=== PATIENT | female | born 1935 | race Caucasian/White ===

== ENCOUNTER → 2017-08-12 | Outpatient (CLI) | payer MEDICARE, BC ==
--- NOTE | 2017-08-12 11:31 | US ---
EXAMINATION TYPE: US kidneys/renal and bladder DATE OF EXAM: 08/12/2017 COMPARISON: NONE CLINICAL HISTORY: 81-year-old female N18.3 Chronic Kidney Disease,E11.9 Diabetes Type 2. TECHNIQUE: Multiple sonographic images of the kidneys and bladder are obtained. FINDINGS: EXAM MEASUREMENTS: Right Kidney: 8.3 x 4.0 x 5.4 cm Left Kidney: 9.2 x 4.3 x 5.1 cm [employer] notes: Technically difficult exam due to body habitus and bowel gas. Right Kidney: upper pole lesion measures 3.1 x 2.7 x 2.9cm. This is primarily cystic but appears to h ave some mural based soft tissue thickening. No hydronephrosis. Left Kidney: large lateral cyst measures 8.4 x 4.8 x 7.1 cm. Bladder: wnl Bilateral Jets seen: only right jet seen IMPRESSION: 1. No hydronephrosis. 2. A 3.1 cm cystic lesion in the upper pole of the right kidney seems to have a thickened mural based rind of tissue. Recommend Contrast-enhanced renal mass protocol CT or MRI to further evaluate. 3. Very large 8.4 cm benign left renal cyst.
== END | disposition home or self-care (01) ==
LOC: RADUSWWP 08:15
PROVIDERS: ATTEND Family Medicine
DX: N28.1 Cyst of kidney, acquired (principal); N18.3 Chronic kidney disease, stage 3 (moderate); E11.9 Type 2 diabetes mellitus without complications
CPT/HCPCS: 76770

== ENCOUNTER → 2017-10-22 | Outpatient (CLI) | payer MEDICARE, BC ==
[2017-10-22 08:37] LABS: HCT 39.3 % (34.0-46.0); Hypochromasia Slight; MCH 25.8 pg (25.0-35.0); MCHC 30.4 g/dL (31.0-37.0); MCV 84.9 fL (80.0-100.0); Mean Platelet Volume 9.2; Platelet Count 162 k/uL (150-450); RBC 4.63 m/uL (3.80-5.40); RDW 14.1 % (11.5-15.5); WBC 5.3 k/uL (3.8-10.6)
[2017-10-22 08:41] LABS: Appearance,Urine Clear (Clear); Bilirubin,Urine Negative (Negative); Blood,Urine Negative (Negative); Color,Urine Yellow; Glucose,Urine (UA) Negative (Negative); Ketones,Urine Negative (Negative); Leukocyte Esterase,Urine Large (Negative); Mucus,Urine Rare /hpf; Nitrite,Urine Negative (Negative); PH, Urine 5.5 (5.0-8.0); Protein,Urine Negative (Negative); RBC,Urine 1 /hpf (0-5); Specific Gravity,Urine 1.012 (1.001-1.035); Squamous Epithelial Cell,Urine <1 /hpf (0-4); Urobilinogen,Urine <2.0 mg/dL (<2.0); WBC,Urine 12 /hpf (0-5)
[2017-10-22 08:59] LABS: Albumin 3.5 g/dL (3.5-5.0); Calcium 9.7 mg/dL (8.4-10.2); Phosphorus 3.7 mg/dL (2.5-4.5); Potassium 4.8 mmol/L (3.5-5.1); Total Bilirubin 0.5 mg/dL (0.2-1.3); Uric Acid 6.8 mg/dL (3.7-7.4)
[2017-10-22 16:14] LABS: Parathyroid Hormone Intact 66.7 pg/mL (14.0-72.0)
[2017-10-22 16:24] LABS: Iron Saturation 15.38 (12.00-45.00)
== END | disposition home or self-care (01) ==
LOC: LABWHC1 08:13
PROVIDERS: ATTEND Internal Medicine
DX: E21.3 Hyperparathyroidism, unspecified (principal); N39.0 Urinary tract infection, site not specified; M10.9 Gout, unspecified; R80.9 Proteinuria, unspecified; D63.1 Anemia in chronic kidney disease; N18.9 Chronic kidney disease, unspecified
CPT/HCPCS: 36415; 80053; 81001; 82043; 82570; 82728; 83540; 83550; 83735; 83970; 84100; 84550; 85027

== ENCOUNTER 2017-11-10 20:15 | Emergency (ER) | payer MEDICARE, BC ==
[2017-11-10 20:25] LABS: Glucose,Whole Blood 120 mg/dL (75-99)
[2017-11-10 22:11] LABS: Basophils % (A) 0 %; Eosinophils # (A) 0.1 k/uL (0-0.7); Eosinophils % (A) 2 %; HCT 39.7 % (34.0-46.0); HGB 12.4 gm/dL (11.4-16.0); Hypochromasia Slight; Lymphocytes # (A) 1.7 k/uL (1.0-4.8); Lymphocytes % (A) 26 %; MCH 26.7 pg (25.0-35.0); MCHC 31.2 g/dL (31.0-37.0); MCV 85.5 fL (80.0-100.0); Mean Platelet Volume 8.3; Monocytes # (A) 0.7 k/uL (0-1.0); Monocytes % (A) 10 %; Neutrophils # (A) 3.9 k/uL (1.3-7.7); Neutrophils % (A) 59 %; Platelet Count 171 k/uL (150-450); RBC 4.65 m/uL (3.80-5.40); RDW 14.6 % (11.5-15.5); WBC 6.7 k/uL (3.8-10.6)
--- NOTE | 2017-11-10 22:13 | ED ---
Dizziness HPI - General Chief Complaint: Dizziness Stated Complaint: Nausea Time Seen by Provider: 11/10/17 21:35 Source: patient Mode of arrival: EMS Limitations: no limitations - History of Present Illness Initial Comments: This patient is an 82-year-old woman who presents to be evaluated for what she was describing as dizziness, but with further prompting seems to be more a lightheaded sensation. She states that it came on tonight after 8 PM, while she was sitting and doing some crocheting. Patient states that this prompted her to check her blood pressure at home and it was less than 80. When she discussed this with family members they called an ambulance and had her brought here. It is reported that EMS found blood pressure in the 140s. Patient was questioning whether the battery may have been low on her machine. The patient states that she is feeling better now. She has not had any symptoms that she feels was suggest infection. She denies any other associated symptoms. She denies palpitations, diaphoresis, dyspnea, chest pain, nausea or vomiting. MD Complaint: dizziness, lightheadedness Onset/Timin -: hour(s) Timing: sudden onset Description: lightheadedness History of Same: No History of Trauma: No Severity: moderate Improves With: nothing Worsens With: nothing Associated Symptoms: denies other symptoms - Related Data Previous Rx's Medication Instructions Recorded Sulfamethox-Tmp 800-160Mg [Bactrim 1 each PO Q12HR #6 tab 11/10/17 Ds] Allergies Allergy/AdvReac Type Severity Reaction Status Date / Time No Known Allergies Allergy Verified 11/10/17 22:10 Review of Systems ROS Statement: Those systems with pertinent positive or pertinent negative responses have been documented in the HPI. ROS Other: All systems not noted in ROS Statement are negative. Constitutional: Denies: fever, chills, weakness Eyes: Denies: vision change ENT: Denies: throat pain, congestion Respiratory: Denies: cough, dyspnea Cardiovascular: Denies: chest pain, palpitations, dyspnea on exertion, orthopnea , edema Gastrointestinal: Denies: abdominal pain, nausea, vomiting, diarrhea, melena, hematochezia Genitourinary: Denies: dysuria, hematuria Musculoskeletal: Denies: back pain Skin: Denies: rash Neurological: Denies: headache, weakness, numbness Past Medical History Past Medical History: Heart Failure, Hypertension Additional Past Medical History / Comment(s): Heart catherization09/11/2000, Ovarian tumor removal. Thyroid disorder. History of Any Multi-Drug Resistant Organisms: None Reported Past Surgical History: Heart Catheterization, Heart Catheterization With Stent Additional Past Surgical History / Comment(s): left shoulder surgery. Past Psychological History: No Psychological Hx Reported Past Alcohol Use History: None Reported Past Drug Use History: None Reported General Exam Limitations: no limitations General appearance: alert, in no apparent distress Head exam: Present: atraumatic, normocephalic Eye exam: Present: normal appearance. Absent: scleral icterus, conjunctival injection ENT exam: Present: normal oropharynx Neck exam: Present: normal inspection Respiratory exam: Present: normal lung sounds bilaterally. Absent: respiratory distress, wheezes, rales, rhonchi, stridor Cardiovascular Exam: Present: regular rate, normal rhythm, normal heart sounds. Absent: systolic murmur, diastolic murmur, rubs, gallop GI/Abdominal exam: Present: soft. Absent: distended, tenderness, guarding, rebound, rigid, mass Extremities exam: Present: normal inspection, normal capillary refill. Absent: pedal edema, calf tenderness Back exam: Present: normal inspection. Absent: CVA tenderness (R), CVA tenderness (L) Neurological exam: Present: alert, normal gait Skin exam: Present: warm, dry, intact, normal color. Absent: rash Course Vital Signs 11/10/17 11/10/17 20:19 21:35 Pulse Rate 85 Pulse Rate [ 83 Right Sitting] Pulse Rate [ 89 Right Standing] Pulse Rate [ 80 Right Supine] Respiratory 16 18 Rate Blood Pressure 152/53 Blood Pressure 141/56 [Right Arm Sitting] Blood Pressure 146/67 [Right Arm Standing] Blood Pressure 138/63 [Right Arm Supine] O2 Sat by Pulse 96 98 Oximetry EKG Findings - EKG Results: EKG: interpreted by ERMD, sinus rhythm (Rate 79 bpm), normal axis - Blocks, [place], Hypertrophy, ST Abn: AV and intraventricular conduction: intraventricular conduction delay Medical Decision Making - Medical Decision Making On reevaluation, the patient's continues to feel well, not having any symptoms here. She would like to go home. I discussed return parameters and also appropriate follow-up and all questions answered. - Lab Data Result diagrams: 11/10/17 21:56 11/10/17 21:56 Lab Results 11/10/17 11/10/17 11/10/17 Range/Units 20:21 21:56 21:56 WBC 6.7 (3.8-10.6) k/uL RBC 4.65 (3.80-5.40) m/uL Hgb 12.4 (11.4-16.0) gm/dL Hct 39.7 (34.0-46.0) % MCV 85.5 (80.0-100.0) fL MCH 26.7 (25.0-35.0) pg MCHC 31.2 (31.0-37.0) g/dL RDW 14.6 (11.5-15.5) % Plt Count 171 (150-450) k/uL Neutrophils % 59 % Lymphocytes % 26 % Monocytes % 10 % Eosinophils % 2 % Basophils % 0 % Neutrophils # 3.9 (1.3-7.7) k/uL Lymphocytes # 1.7 (1.0-4.8) k/uL Monocytes # 0.7 (0-1.0) k/uL Eosinophils # 0.1 (0-0.7) k/uL Basophils # 0.0 (0-0.2) k/uL Hypochromasia Slight Sodium 140 (137-145) mmol/L Potassium 4.3 (3.5-5.1) mmol/L Chloride 106 (98-107) mmol/L Carbon Dioxide 27 (22-30) mmol/L Anion Gap 7 mmol/L BUN 41 H (7-17) mg/dL Creatinine 1.60 H (0.52-1.04) mg/dL Est GFR (CKD-EPI)AfAm 35 (>60 ml/min/1.73 sqM) Est GFR (CKD-EPI)NonAf 30 (>60 ml/min/1.73 sqM) Glucose 125 H (74-99) mg/dL POC Glucose (mg/dL) 120 H (75-99) mg/dL POC Glu Mysql Database Administrator Farhad Calleelle Plasma Lactic Acid Tab (0.7-2.0) mmol/L Calcium 9.5 (8.4-10.2) mg/dL Total Bilirubin 0.4 (0.2-1.3) mg/dL AST 23 (14-36) U/L ALT 25 (9-52) U/L Alkaline Phosphatase 51 (38-126) U/L Total Protein 6.1 L (6.3-8.2) g/dL Albumin 3.4 L (3.5-5.0) g/dL Urine Color Urine Appearance (Clear) Urine pH (5.0-8.0) Ur Specific [place] (1.001-1.035) Urine Protein (Negative) Urine Glucose (UA) (Negative) Urine Ketones (Negative) Urine Blood (Negative) Urine Nitrite (Negative) Urine Bilirubin (Negative) Urine Urobilinogen (<2.0) mg/dL Ur Leukocyte Esterase (Negative) Urine RBC (0-5) /hpf Urine WBC (0-5) /hpf Ur Squamous Epith Cells (0-4) /hpf Hyaline Casts (0-2) /lpf Urine Mucus (None) /hpf 11/10/17 11/10/17 Range/Units 21:56 22:00 WBC (3.8-10.6) k/uL RBC (3.80-5.40) m/uL Hgb (11.4-16.0) gm/dL Hct (34.0-46.0) % MCV (80.0-100.0) fL MCH (25.0-35.0) pg MCHC (31.0-37.0) g/dL RDW (11.5-15.5) % Plt Count (150-450) k/uL Neutrophils % % Lymphocytes % % Monocytes % % Eosinophils % % Basophils % % Neutrophils # (1.3-7.7) k/uL Lymphocytes # (1.0-4.8) k/uL Monocytes # (0-1.0) k/uL Eosinophils # (0-0.7) k/uL Basophils # (0-0.2) k/uL Hypochromasia Sodium (137-145) mmol/L Potassium (3.5-5.1) mmol/L Chloride (98-107) mmol/L Carbon Dioxide (22-30) mmol/L Anion Gap mmol/L BUN (7-17) mg/dL Creatinine (0.52-1.04) mg/dL Est GFR (CKD-EPI)AfAm (>60 ml/min/1.73 sqM) Est GFR (CKD-EPI)NonAf (>60 ml/min/1.73 sqM) Glucose (74-99) mg/dL POC Glucose (mg/dL) (75-99) mg/dL POC Glu Mysql Database Administrator ID Plasma Lactic Acid Tab 1.4 (0.7-2.0) mmol/L Calcium (8.4-10.2) mg/dL Total Bilirubin (0.2-1.3) mg/dL AST (14-36) U/L ALT (9-52) U/L Alkaline Phosphatase (38-126) U/L Total Protein (6.3-8.2) g/dL Albumin (3.5-5.0) g/dL Urine Color Yellow Urine Appearance Cloudy H (Clear) Urine pH 5.0 (5.0-8.0) Ur Specific [place] 1.011 (1.001-1.035) Urine Protein Negative (Negative) Urine Glucose (UA) Negative (Negative) Urine Ketones Negative (Negative) Urine Blood Negative (Negative) Urine Nitrite Negative (Negative) Urine Bilirubin Negative (Negative) Urine Urobilinogen <2.0 (<2.0) mg/dL Ur Leukocyte Esterase Large H (Negative) Urine RBC <1 (0-5) /hpf Urine WBC 12 H (0-5) /hpf Ur Squamous Epith Cells 2 (0-4) /hpf Hyaline Casts 21 H (0-2) /lpf Urine Mucus Rare H (None) /hpf Disposition Clinical Impression: Urinary tract infection Disposition: HOME SELF-CARE Condition: Good Instructions: Urinary Tract Infection in Women (ED), Dizziness (ED) Prescriptions: Sulfamethox-Tmp 800-160Mg [Bactrim Ds] 1 each PO Q12HR #6 tab Is patient prescribed a controlled substance at d/c from ED?: No Referrals: Tila Valladares MD [Primary Care Provider] - 1-2 days
[2017-11-10 22:25] LABS: Appearance,Urine Cloudy (Clear); Bilirubin,Urine Negative (Negative); Blood,Urine Negative (Negative); Color,Urine Yellow; Glucose,Urine (UA) Negative (Negative); Hyaline Casts,Urine 21 /lpf (0-2); Ketones,Urine Negative (Negative); Leukocyte Esterase,Urine Large (Negative); Mucus,Urine Rare /hpf; Nitrite,Urine Negative (Negative); Protein,Urine Negative (Negative); RBC,Urine <1 /hpf (0-5); Specific Gravity,Urine 1.011 (1.001-1.035); Squamous Epithelial Cell,Urine 2 /hpf (0-4); Urobilinogen,Urine <2.0 mg/dL (<2.0); WBC,Urine 12 /hpf (0-5)
[2017-11-10 22:26] LABS: Albumin 3.4 g/dL (3.5-5.0); Calcium 9.5 mg/dL (8.4-10.2); Potassium 4.3 mmol/L (3.5-5.1); Total Bilirubin 0.4 mg/dL (0.2-1.3); Total Protein 6.1 g/dL (6.3-8.2)
[2017-11-10] MEDS ORDERED: SODIUM CHLORIDE 0.9% 500 ML IV STA (22:36)
[2017-11-10] MEDS ORDERED: SULFAMETHOX-TMP 800-160MG 1 EACH TAB PO STA (22:36)
--- NOTE | 2017-11-10 23:13 | XR ---
EXAMINATION TYPE: XR chest 2V DATE OF EXAM: 11/10/2017 COMPARISON: 11/23/2015 HISTORY: Weakness TECHNIQUE: Frontal and lateral views of the chest are obtained. FINDINGS: There is elevated right diaphragm there is linear density at the right lung base. Left aldair g is clear. There is no heart failure. Mediastinum is normal. Bony thorax is intact. IMPRESSION: Chronic elevated right diaphragm with atelectasis at the right lung base. This could rel ate to paralysis. No significant change. No heart failure.
[2017-11-11 00:04] VITALS: BP 131/59; PULSE 72; RESP 16; TEMP 98.5
== END 2017-11-11 00:01 | disposition home or self-care (01) ==
LOC: EC 20:15
DX: N39.0 Urinary tract infection, site not specified (principal); R42 Dizziness and giddiness; I11.0 Hypertensive heart disease with heart failure; I50.9 Heart failure, unspecified; Z95.5 Presence of coronary angioplasty implant and graft
CPT/HCPCS: 36415; 71046; 80053; 81001; 83605; 85025; 87040; 93005; 99285

== ENCOUNTER → 2017-11-22 | Outpatient (CLI) | payer MEDICARE, BC ==
--- NOTE | 2017-11-23 14:52 | MR ---
EXAMINATION TYPE: MR kidney wo con DATE OF EXAM: 11/22/2017 COMPARISON: Ultrasound 08/12/2017 HISTORY: 82-year-old female Chronic kidney disease TECHNIQUE: Multiplanar, multisequence images of the abdomen were obtained without IV contrast for ass essment of the kidneys. FINDINGS: The heart is normal size. No pleural effusion. There is a 2.3 x 3.1 cm mildly T2 hyperintense lesion within segment 3 of the left liver lobe. On axi al series, there is a thin septation along the posterior margin. Assessment limited without IV contra st. No other focal liver lesions seen. Tiny 4 mm smaller calculi layering in the gallbladder. No abnormal gallbladder distention. No biliary ductal dilatation. Maintained flow void of the portal vein. Mild diffuse thickening of the adrenal glands without discrete nodularity. Complex cyst is confirmed in the upper pole of the right kidney. This measures 2.9 x 2.7 x 2.2 cm. On the prior ultrasound, measurements were 3.1 x 2.9 x 2.7 cm. Large simple cyst exophytic from the mid to lower pole left kidney measures 8.8 cm. Tiny 7 mm cortica l cyst in the upper pole of the left kidney. No hydronephrosis. Spleen and nonenhanced pancreas show no gross abnormality. Prominent but nonenlarged portacaval lymph node measuring 1.2 cm. No upper abdominal lymphadenopathy, ascites fluid, or gross bowel abnormality seen. IMPRESSION: 1. A 2.9 cm Bosniak category 2F upper pole right renal cyst. Stable for 3 months. Multiple thin inter nal septations are present. As this is well seen on ultrasound, recommend ultrasound follow-up in 6 a nd 12 months then annual follow-up for 5 years. 2. Indeterminate, mildly T2 hyperintense 3.1 cm lesion segment 3 left liver lobe. Suspect a mildly co mplicated cyst that contains a single thin internal septation. This can also be assessed on the patie nt's follow-up ultrasound. 3. Tiny layering gallstones.
== END | disposition home or self-care (01) ==
LOC: RADMRIMAIN 10:27
PROVIDERS: ATTEND Internal Medicine Nephrology
DX: N28.1 Cyst of kidney, acquired (principal); N18.9 Chronic kidney disease, unspecified
CPT/HCPCS: 74181

== ENCOUNTER → 2018-04-15 | Outpatient (CLI) | payer MEDICARE, BC ==
[2018-04-15 08:22] LABS: HCT 42.5 % (34.0-46.0); HGB 13.8 gm/dL (11.4-16.0); MCH 30.6 pg (25.0-35.0); MCHC 32.5 g/dL (31.0-37.0); MCV 94.2 fL (80.0-100.0); Mean Platelet Volume 8.1; Platelet Count 135 k/uL (150-450); RBC 4.51 m/uL (3.80-5.40); RDW 13.2 % (11.5-15.5); WBC 5.9 k/uL (3.8-10.6)
[2018-04-15 08:26] LABS: Appearance,Urine Clear (Clear); Bilirubin,Urine Negative (Negative); Blood,Urine Negative (Negative); Color,Urine Light Yellow; Glucose,Urine (UA) Negative (Negative); Ketones,Urine Negative (Negative); Leukocyte Esterase,Urine Moderate (Negative); Mucus,Urine Rare /hpf; Nitrite,Urine Negative (Negative); Protein,Urine Negative (Negative); Specific Gravity,Urine 1.009 (1.001-1.035); Squamous Epithelial Cell,Urine <1 /hpf (0-4); Urobilinogen,Urine <2.0 mg/dL (<2.0); WBC,Urine 6 /hpf (0-5)
[2018-04-15 11:10] LABS: Iron Saturation 32.78 (12.00-45.00)
[2018-04-15 11:14] LABS: Albumin 3.7 g/dL (3.80-4.90); Albumin/Globulin Ratio 1.76 (1.20-2.10); Anion Gap 8.3 mmol/L (4.00-12.00); Calcium 9.1 mg/dL (8.7-10.3); Carbon Dioxide 29.7 mmol/L (21.6-31.8); Globulin 2.1 g/dL (1.6-3.3); Magnesium 1.7 mg/dL (1.5-2.4); Phosphorus 2.8 mg/dL (2.4-5.1); Potassium 3.8 mmol/L (3.5-5.5); Total Bilirubin 0.8 mg/dL (0.3-1.2); Total Protein 5.8 g/dL (6.2-8.2); Uric Acid 6.9 mg/dL (2.9-7.7)
[2018-04-15 11:19] LABS: Vitamin D 25 Hydroxy 56.7 ng/mL (30.0-100.0)
[2018-04-15 11:21] LABS: Parathyroid Hormone Intact 49.5 pg/mL (14.0-72.0)
== END ==
LOC: LABWHC1 07:30
PROVIDERS: ATTEND Nurse Practitioner Family
DX: N18.9 Chronic kidney disease, unspecified (principal); E61.1 Iron deficiency; N39.0 Urinary tract infection, site not specified; D63.1 Anemia in chronic kidney disease; E55.9 Vitamin D deficiency, unspecified; M10.9 Gout, unspecified; E21.3 Hyperparathyroidism, unspecified
CPT/HCPCS: 36415; 80053; 81001; 82043; 82306; 82570; 82728; 83540; 83550; 83735; 83970; 84100; 84550; 85027; 87086

== ENCOUNTER → 2018-08-01 | Outpatient (CLI) | payer MEDICARE, BC ==
--- NOTE | 2018-08-01 07:15 | US ---
EXAMINATION TYPE: US kidneys/renal and bladder DATE OF EXAM: 08/01/2018 COMPARISON: US & MRI CLINICAL HISTORY: N28.1 right renal cyst. F/U renal cyst EXAM MEASUREMENTS: Right Kidney: 7.8 x 3.7 x 4.0 cm Left Kidney: 8.8 x 3.3 x 3.5 cm Right Kidney: Cyst upper pole= 1.9 x 1.8 x 2.1 cm Left Kidney: Cyst lower pole= 8.4 x 5.3 x 8.3 cm Bladder: wnl Bilateral Jets seen: No There is no evidence for hydronephrosis at this point in time. No nephrolithiasis is seen. No solid masses are identified. The urinary bladder is anechoic. Bilateral ureteral jets are seen. IMPRESSION: Stable Renal cystic changes noted.
== END | disposition home or self-care (01) ==
LOC: RADUSWWP 06:47
PROVIDERS: ATTEND Urology
DX: N28.1 Cyst of kidney, acquired (principal); Z88.1 Allergy status to other antibiotic agents; Z88.8 Allergy status to other drugs, medicaments and biological substances
CPT/HCPCS: 76770

== ENCOUNTER 2018-09-11 21:02 | Emergency (ER) | payer MEDICARE, BC ==
[2018-09-11 21:48] LABS: Basophils % (A) 0 %; Eosinophils # (A) 0.1 k/uL (0-0.7); Eosinophils % (A) 2 %; HCT 45.9 % (34.0-46.0); HGB 14.7 gm/dL (11.4-16.0); Lymphocytes % (A) 27 %; MCH 29.3 pg (25.0-35.0); MCV 91.4 fL (80.0-100.0); Mean Platelet Volume 9.3; Monocytes # (A) 0.7 k/uL (0-1.0); Monocytes % (A) 9 %; Neutrophils # (A) 4.5 k/uL (1.3-7.7); Neutrophils % (A) 60 %; Platelet Count 161 k/uL (150-450); RBC 5.02 m/uL (3.80-5.40); RDW 13.7 % (11.5-15.5); WBC 7.5 k/uL (3.8-10.6)
--- NOTE | 2018-09-11 21:50 | ED ---
General Adult HPI - General Chief complaint: Urogenital Stated complaint: UTI Time Seen by Provider: 09/11/18 21:17 Source: EMS Mode of arrival: EMS - History of Present Illness Initial comments: Dictation was produced using [employer] dictation software. please excuse any grammatical, word or spelling errors. Chief Complaint: 82-year-old female multiple comorbid disease presents with dysuria. History of Present Illness: 82-year-old female multiple comorbidities presents today with dysuria. Patient states that 3 days ago she had some burning on u rination. She thought some maybe she is having kidney infection. She decided to drink more water than usual and her symptoms went away. She was relatively asymptomatic the following 2 days. Today she noted that she had painful urination. Patient's history of urinary tract infections. Patient also reports that she had a kidney infection as well. Patient denies any constitutional symptoms. She doesn't have any pain to her suprapubic area. Patient has a history of kidney cyst that has been monitored by nephrology and urology. Patient has a history of chronic kidney disease. The ROS documented in this emergency department record has been reviewed and confirmed by me. Those systems with pertinent positive or negative responses have been documented in the HPI. All other systems are other negative and/or noncontributory. PHYSICAL EXAM: General Impression: Alert and oriented x3, not in acute distress HEENT: Normocephalic atraumatic, extra-ocular movements intact, pupils equal and reactive to light bilaterally, mucous membranes moist. Cardiovascular: Heart regular rate and rhythm, S1&S2 audible, no murmurs, rubs or gallops Chest: Lungs clear to auscultation bilaterally, no rhonchi, no wheeze, no rales Abdomen: Bowel sounds present, abdomen soft, non-tender, non-distended, no organomegaly Musculoskeletal: Pulses present and equal in all extremities, no peripheral edema, no CVA tenderness Motor: no focal deficits noted Neurological: CN II-XII grossly intact, no focal motor or sensory deficits noted Skin: Intact with no visualized rashes Psych: Normal affect and mood ED course: Patient is a 82-year-old female presents chief complaint dysuria. Signs upon arrival are within acceptable limits. Laboratory evaluation obtained. CBC, metabolic panel is unremarkable. U rinalysis consistent with urinary tract infection. No old urine microbiology results are available in the EMR. Patient 1 g of ceftriaxone. Patient given prescription for by mouth antibiotics. Patient clear for discharge. Return parameters discussed. Patient told to come to the emergency department with flank pain, fever or confusion. Patient understandable agreeable. She is advised follow-up with her PCP upon discharge. - Related Data Home Medications Medication Instructions Recorded Confirmed Cholecalciferol [Vitamin D3 (25 5,000 unit PO Q48H 09/11/18 09/11/18 Mcg = 1000 Iu)] Famotidine [Pepcid] 20 mg PO DAILY 09/11/18 09/11/18 Ferrous Sulfate [Feosol] 325 mg PO DAILY 09/11/18 09/11/18 Levothyroxine Sodium [Synthroid] 75 mcg PO DAILY 09/11/18 09/11/18 Metoprolol Tartrate [Lopressor] 25 mg PO HS 09/11/18 09/11/18 Metoprolol Tartrate [Lopressor] 50 mg PO DAILY 09/11/18 09/11/18 Olmesartan/Hydrochlorothiazide 1 tab PO DAILY 09/11/18 09/11/18 [Benicar Hct 20-12.5 mg Tablet] Simvastatin 40 mg PO HS 09/11/18 09/11/18 Previous Rx's Medication Instructions Recorded Cephalexin [Keflex] 500 mg PO Q6HR 7 Days #30 cap 09/11/18 Allergies Allergy/AdvReac Type Severity Reaction Status Date / Time No Known Allergies Allergy Verified 09/11/18 21:30 Review of Systems ROS Statement: Those systems with pertinent positive or pertinent negative responses have been documented in the HPI. ROS Other: All systems not noted in ROS Statement are negative. Past Medical History Past Medical History: Heart Failure, Hypertension Additional Past Medical History / Comment(s): Heart catherization09/11/2000, Ovarian tumor removal. Thyroid disorder. cyst on left kidney, frequent uti, shoulder cyst, cataracts right eye History of Any Multi-Drug Resistant Organisms: None Reported Past Surgical History: Heart Catheterization, Heart Catheterization With Stent, Hernia Repair, Hysterectomy Additional Past Surgical History / Comment(s): left shoulder surgery, peripheral angiography Past Psychological History: No Psychological Hx Reported Smoking Status: Never smoker Past Alcohol Use History: None Reported Past Drug Use History: None Reported Course Vital Signs 09/11/18 09/11/18 21:19 23:28 Temperature 98.4 F 98.3 F Pulse Rate 75 62 Respiratory 18 16 Rate Blood Pressure 131/55 133/64 O2 Sat by Pulse 97 96 Oximetry Medical Decision Making - Lab Data Result diagrams: 09/11/18 21:33 09/11/18 21:33 Lab Results 09/11/18 09/11/18 09/11/18 Range/Units 21:33 21:33 21:33 WBC 7.5 (3.8-10.6) k/uL RBC 5.02 (3.80-5.40) m/uL Hgb 14.7 (11.4-16.0) gm/dL Hct 45.9 (34.0-46.0) % MCV 91.4 (80.0-100.0) fL MCH 29.3 (25.0-35.0) pg MCHC 32.0 (31.0-37.0) g/dL RDW 13.7 (11.5-15.5) % Plt Count 161 (150-450) k/uL Neutrophils % 60 % Lymphocytes % 27 % Monocytes % 9 % Eosinophils % 2 % Basophils % 0 % Neutrophils # 4.5 (1.3-7.7) k/uL Lymphocytes # 2.0 (1.0-4.8) k/uL Monocytes # 0.7 (0-1.0) k/uL Eosinophils # 0.1 (0-0.7) k/uL Basophils # 0.0 (0-0.2) k/uL Sodium 139 (137-145) mmol/L Potassium 5.0 (3.5-5.1) mmol/L Chloride 101 (98-107) mmol/L Carbon Dioxide 29 (22-30) mmol/L Anion Gap 9 mmol/L BUN 32 H (7-17) mg/dL Creatinine 1.56 H (0.52-1.04) mg/dL Est GFR (CKD-EPI)AfAm 36 (>60 ml/min/1.73 sqM) Est GFR (CKD-EPI)NonAf 31 (>60 ml/min/1.73 sqM) Glucose 141 H (74-99) mg/dL Calcium 10.1 (8.4-10.2) mg/dL Urine Color Yellow Urine Appearance Cloudy H (Clear) Urine pH 5.0 (5.0-8.0) Ur Specific [place] 1.016 (1.001-1.035) Urine Protein Trace H (Negative) Urine Glucose (UA) Negative (Negative) Urine Ketones Negative (Negative) Urine Blood Small H (Negative) Urine Nitrite Negative (Negative) Urine Bilirubin Negative (Negative) Urine Urobilinogen 2.0 (<2.0) mg/dL Ur Leukocyte Esterase Large H (Negative) Urine RBC 13 H (0-5) /hpf Urine WBC >182 H (0-5) /hpf Urine WBC Clumps Few H (None) /hpf Ur Squamous Epith Cells 1 (0-4) /hpf Urine Bacteria Rare H (None) /hpf Hyaline Casts 22 H (0-2) /lpf Urine Mucus Rare H (None) /hpf Disposition Clinical Impression: Urinary tract infection Disposition: HOME SELF-CARE Condition: Good Instructions (If sedation given, give patient instructions): Urinary Tract Infection in Women (ED) Prescriptions: Cephalexin [Keflex] 500 mg PO Q6HR 7 Days #30 cap Is patient prescribed a controlled substance at d/c from ED?: No Referrals: Tila Valladares MD [Primary Care Provider] - 1-2 days Time of Disposition: 23:54
[2018-09-11 21:51] LABS: Appearance,Urine Cloudy (Clear); Bacteria,Urine Rare /hpf; Bilirubin,Urine Negative (Negative); Blood,Urine Small (Negative); Color,Urine Yellow; Glucose,Urine (UA) Negative (Negative); Hyaline Casts,Urine 22 /lpf (0-2); Ketones,Urine Negative (Negative); Leukocyte Esterase,Urine Large (Negative); Mucus,Urine Rare /hpf; Nitrite,Urine Negative (Negative); Protein,Urine Trace (Negative); RBC,Urine 13 /hpf (0-5); Specific Gravity,Urine 1.016 (1.001-1.035); Squamous Epithelial Cell,Urine 1 /hpf (0-4); WBC,Urine >182 /hpf (0-5)
[2018-09-11 21:59] LABS: Calcium 10.1 mg/dL (8.4-10.2)
[2018-09-11 23:28] VITALS: BP 133/64; PULSE 62; RESP 16; TEMP 98.3
== END 2018-09-12 00:01 | disposition home or self-care (01) ==
LOC: EC 21:02
DX: N39.0 Urinary tract infection, site not specified (principal); I13.0 Hypertensive heart and chronic kidney disease with heart failure and stage 1 through stage 4 chronic kidney disease, or unspecified chronic kidney disease; N18.9 Chronic kidney disease, unspecified; I50.9 Heart failure, unspecified; E07.9 Disorder of thyroid, unspecified; Z79.890 Hormone replacement therapy; Z79.899 Other long term (current) drug therapy; Z95.5 Presence of coronary angioplasty implant and graft; Z90.710 Acquired absence of both cervix and uterus
CPT/HCPCS: 36415; 80048; 85025; 81001; 87086; 99283; 96365; J0696

== ENCOUNTER 2018-09-23 08:16 | Inpatient (IN) | payer MEDICARE, BC ==
[2018-09-23] MEDS ORDERED: SODIUM CHLORIDE 0.9% 1,000 ML IV STA ×2 (08:55→12:38)
[2018-09-23] MEDS ORDERED: ONDANSETRON 4 MG/2 ML VIAL IVP STA (08:55)
[2018-09-23] MEDS ORDERED: SODIUM CHLORIDE 0.9% 500 ML 500 ML IV STA (08:55)
[2018-09-23] MEDS ORDERED: FAMOTIDINE 20 MG/2 ML VIAL IV STA (08:57)
--- NOTE | 2018-09-23 09:13 | ED ---
General Adult HPI - General Chief complaint: Nausea/Vomiting/Diarrhea Stated complaint: diarrhea Time Seen by Provider: 09/23/18 08:47 Source: patient, family, RN notes reviewed Mode of arrival: wheelchair Limitations: no limitations - History of Present Illness Initial comments: Patient is a pleasant 82-year-old female presenting to the emergency Department with complaints of diarrhea. Onset of symptoms was 3 or 4 days ago. Patient does have decreased appetite. Patient has had nausea and dry heaves. Patient is having diarrhea 5-6 times daily. Patient does have abdominal cramping prior to diarrhea and otherwise no abdominal pain. No abdominal pain at this time. No fevers. Patient recently was on Keflex for urinary tract infection. - Related Data Home Medications Medication Instructions Recorded Confirmed Cholecalciferol [Vitamin D3 (25 5,000 unit PO Q48H 09/11/18 09/23/18 Mcg = 1000 Iu)] Famotidine [Pepcid] 20 mg PO DAILY 09/11/18 09/23/18 Ferrous Sulfate [Feosol] 325 mg PO DAILY 09/11/18 09/23/18 Levothyroxine Sodium [Synthroid] 75 mcg PO DAILY 09/11/18 09/23/18 Metoprolol Tartrate [Lopressor] 25 mg PO HS 09/11/18 09/23/18 Metoprolol Tartrate [Lopressor] 50 mg PO DAILY 09/11/18 09/23/18 Olmesartan/Hydrochlorothiazide 1 tab PO DAILY 09/11/18 09/23/18 [Benicar Hct 20-12.5 mg Tablet] Simvastatin 40 mg PO HS 09/11/18 09/23/18 Allergies Allergy/AdvReac Type Severity Reaction Status Date / Time fexofenadine [From Mila] Allergy Unknown Verified 09/23/18 09:14 Review of Systems ROS Statement: Those systems with pertinent positive or pertinent negative responses have been documented in the HPI. ROS Other: All systems not noted in ROS Statement are negative. Constitutional: Denies: fever Eyes: Denies: eye pain ENT: Denies: ear pain Respiratory: Denies: cough Cardiovascular: Denies: chest pain Endocrine: Denies: fatigue Gastrointestinal: Reports: as per HPI, nausea, diarrhea Genitourinary: Denies: dysuria Musculoskeletal: Denies: back pain Skin: Denies: rash Neurological: Denies: headache Past Medical History Past Medical History: Heart Failure, Hypertension Additional Past Medical History / Comment(s): Heart catherization09/11/2000, Ovarian tumor removal. Thyroid disorder. cyst on left kidney, frequent uti, shou lder cyst, cataracts right eye History of Any Multi-Drug Resistant Organisms: None Reported Past Surgical History: Heart Catheterization, Heart Catheterization With Stent, Hernia Repair, Hysterectomy Additional Past Surgical History / Comment(s): left shoulder surgery, peripheral angiography Past Psychological History: No Psychological Hx Reported Smoking Status: Never smoker Past Alcohol Use History: None Reported Past Drug Use History: None Reported General Exam Limitations: no limitations General appearance: alert, in no apparent distress Head exam: Present: atraumatic Eye exam: Present: normal appearance, PERRL ENT exam: Present: normal oropharynx Neck exam: Present: normal inspection Respiratory exam: Present: normal lung sounds bilaterally Cardiovascular Exam: Present: regular rate, normal rhythm Expanded Peripheral pulses: 2+: Dorsalis Pedis (R), Dorsalis Pedis (L) GI/Abdominal exam: Present: soft, normal bowel sounds. Absent: distended, tenderness, guarding, rebound, rigid, pulsatile mass Extremities exam: Present: normal inspection Neurological exam: Present: alert Psychiatric exam: Present: normal affect, normal mood Skin exam: Present: normal color Course Vital Signs 09/23/18 09/23/18 09/23/18 08:29 09:30 10:00 Temperature 98.9 F Pulse Rate 113 H Respiratory 18 Rate Blood Pressure 88/41 102/43 109/54 O2 Sat by Pulse 93 L 96 94 L Oximetry 09/23/18 09/23/18 10:30 10:48 Temperature 98.2 F Pulse Rate 90 Respiratory 18 Rate Blood Pressure 103/52 O2 Sat by Pulse 94 L 97 Oximetry Medical Decision Making - Medical Decision Making Patient reevaluated and resting comfortably in bed. Systolic blood pressure 99. Patient and family updated on results and plan. No stool sample yet at this time to test for C. diff. Case was discussed with Dr. Casanova, covering for Dr. Tila Pacheco, who will admit. - Lab Data Result diagrams: 09/23/18 09:07 09/23/18 09:07 Lab Results 09/23/18 09/23/18 Range/Units 09:07 09:07 WBC 11.9 H (3.8-10.6) k/uL RBC 4.77 (3.80-5.40) m/uL Hgb 13.7 (11.4-16.0) gm/dL Hct 43.7 (34.0-46.0) % MCV 91.7 (80.0-100.0) fL MCH 28.7 (25.0-35.0) pg MCHC 31.3 (31.0-37.0) g/dL RDW 14.9 (11.5-15.5) % Plt Count 140 L (150-450) k/uL Neutrophils % 81 % Lymphocytes % 5 % Monocytes % 11 % Eosinophils % 1 % Basophils % 0 % Neutrophils # 9.7 H (1.3-7.7) k/uL Lymphocytes # 0.6 L (1.0-4.8) k/uL Monocytes # 1.3 H (0-1.0) k/uL Eosinophils # 0.1 (0-0.7) k/uL Basophils # 0.0 (0-0.2) k/uL Sodium 137 (137-145) mmol/L Potassium 4.1 (3.5-5.1) mmol/L Chloride 98 (98-107) mmol/L Carbon Dioxide 25 (22-30) mmol/L Anion Gap 14 mmol/L BUN 53 H (7-17) mg/dL Creatinine 2.11 H (0.52-1.04) mg/dL Est GFR (CKD-EPI)AfAm 25 (>60 ml/min/1.73 sqM) Est GFR (CKD-EPI)NonAf 22 (>60 ml/min/1.73 sqM) Glucose 97 (74-99) mg/dL Calcium 9.0 (8.4-10.2) mg/dL Total Bilirubin 0.9 (0.2-1.3) mg/dL AST 25 (14-36) U/L ALT 14 (9-52) U/L Alkaline Phosphatase 53 (38-126) U/L Total Protein 5.9 L (6.3-8.2) g/dL Albumin 3.3 L (3.5-5.0) g/dL Amylase <30 L (30-110) U/L Lipase <10 L (23-300) U/L - Radiology Data Radiology results: image reviewed (Abdominal x-ray shows no obstruction. Right santi-clonic bowel wall edema suggestive of inflammation or colitis.) Disposition Clinical Impression: Dehydration, Diarrhea Disposition: ADMITTED IP TO THIS HOSP Is patient prescribed a controlled substance at d/c from ED?: No Referrals: Tila Valladares MD [Primary Care Provider] - 1-2 days Decision Time: 11:18
[2018-09-23 10:01] LABS: Basophils % (A) 0 %; Eosinophils # (A) 0.1 k/uL (0-0.7); Eosinophils % (A) 1 %; HCT 43.7 % (34.0-46.0); HGB 13.7 gm/dL (11.4-16.0); Lymphocytes # (A) 0.6 k/uL (1.0-4.8); Lymphocytes % (A) 5 %; MCH 28.7 pg (25.0-35.0); MCHC 31.3 g/dL (31.0-37.0); MCV 91.7 fL (80.0-100.0); Mean Platelet Volume 9.5; Monocytes # (A) 1.3 k/uL (0-1.0); Monocytes % (A) 11 %; Neutrophils # (A) 9.7 k/uL (1.3-7.7); Neutrophils % (A) 81 %; Platelet Count 140 k/uL (150-450); RBC 4.77 m/uL (3.80-5.40); RDW 14.9 % (11.5-15.5); WBC 11.9 k/uL (3.8-10.6)
[2018-09-23 10:09] LABS: ALT 14 U/L (9-52); AST 25 U/L (14-36); African American GFR (CKD) 25 (>60 ml/min/1.73 sqM); Albumin 3.3 g/dL (3.5-5.0); Alkaline Phosphatase 53 U/L (38-126); Amylase <30 U/L (30-110); Anion Gap 14 mmol/L; Blood Urea Nitrogen 53 mg/dL (7-17); Carbon Dioxide 25 mmol/L (22-30); Chloride 98 mmol/L (98-107); Glucose 97 mg/dL (74-99); Lipase <10 U/L (23-300); Potassium 4.1 mmol/L (3.5-5.1); Sodium 137 mmol/L (137-145); Total Bilirubin 0.9 mg/dL (0.2-1.3); Total Protein 5.9 g/dL (6.3-8.2)
--- NOTE | 2018-09-23 10:18 | XR ---
EXAMINATION TYPE: XR KUB DATE OF EXAM: 09/23/2018 CLINICAL DATA: 82-year-old female with pain, [facility] COMPARISON: 07/14/2013 FINDINGS: Lung bases are clear. Unchanged asymmetric elevation right hemidiaphragm. No free air seen below the hemidiaphragms. Air-fluid level left side of the colon. No dilated small bowel loops. Mucosal fold thickening along t he right hemicolon. No suspicious calcification seen. IMPRESSION: 1. No free air. Nonobstructive bowel gas pattern. 2. Right hemicolonic bowel wall edema highly suggestive of inflammation/colitis. Clinically correlate . 3. Continued marked elevation right hemidiaphragm suggesting underlying hemidiaphragmatic paralysis.
[2018-09-23] MEDS ORDERED: NALOXONE 0.4 MG/ML 1 ML VIAL IV PRN (11:22)
[2018-09-23] MEDS ORDERED: ONDANSETRON 4 MG/2 ML VIAL IVP PRN (11:22)
[2018-09-23 11:45] LABS: Appearance,Urine Cloudy (Clear); Bacteria,Urine Rare /hpf; Bilirubin,Urine 1+ (Negative); Blood,Urine Trace (Negative); Color,Urine Yellow; Glucose,Urine (UA) Negative (Negative); Hyaline Casts,Urine 28 /lpf (0-2); Ketones,Urine 1+ (Negative); Leukocyte Esterase,Urine Large (Negative); Mucus,Urine Rare /hpf; Nitrite,Urine Negative (Negative); Protein,Urine Trace (Negative); RBC,Urine 1 /hpf (0-5); Specific Gravity,Urine 1.017 (1.001-1.035); Squamous Epithelial Cell,Urine 4 /hpf (0-4); WBC,Urine 20 /hpf (0-5)
[2018-09-23] MEDS ORDERED: SODIUM CHLORIDE 0.9% 500 ML 750 ML IV STA (12:38)
[2018-09-23] MEDS ORDERED: LEVOFLOXACIN 750MG-D5W PMX 750 MG in DEXTROSE/WATER 1 150ML.BAG IVPB STA (14:20)
[2018-09-23] MEDS: SODIUM CHLORIDE 0.9% 1,000 ML IV SCH (15:15)
[2018-09-23] MEDS ORDERED: SODIUM CHLORIDE 0.9% 500 ML 250 ML IV ONE (16:33)
[2018-09-23] MEDS: METOPROLOL TARTRATE 25 MG TAB PO SCH (18:21)
[2018-09-23] MEDS: HEPARIN SODIUM,PORCINE 5,000 UNIT/ML 1 ML VIAL SQ SCH (20:08)
[2018-09-23] MEDS: ATORVASTATIN 20 MG TAB PO SCH (20:08)
[2018-09-23] MEDS: FAMOTIDINE 20 MG TAB PO SCH (20:08)
--- NOTE | 2018-09-23 20:33 | HP ---
HISTORY AND PHYSICAL CHIEF COMPLAINT: Diarrhea, abdominal pain. HISTORY OF PRESENT ILLNESS: This 82-year-old woman with a past medical history of multiple medical problems, including history of CHF, history of hypertension, history of cardiac catheterization, history of ovarian tumor removal, history of frequent UTIs, history of CAD, stent, history of hernia repair, being followed by Dr. Tila Valladares in the outpatient setting, apparently had an episode of UTI . The patient was evaluated. Patient was given Kefzol. Patient went home. Subsequently the patient had multiple episodes of diarrhea, abdominal pain in the lower abdomen, and she came to [facility] and was admitted for further evaluation and treatment. KUB x-ray showed right hemicolonic bowel wall edema suggestive of inflammation and colitis. Otherwise, marked elevation of the right hemidiaphragm. Diaphragmatic paralysis also noted. The creatinine was found to be 2.11. Patient also has seen Dr. Marx previously. Patient also had multiple cardiac issues. The patient was found to be tachycardic and to have dehydration. Patient was also found to be hypotensive, and the patient had to be bolused in the ER. The blood pressure came up, but currently the blood pressure is again showing trends toward hypotension, going down to 74 systolic at this time, after fluid bolus coming up to 102/47. There is no history of any fever, rigor or chills. No history of chest pain, palpitation, headache, loss of consciousness, seizures at this time. PAST MEDICAL HISTORY: 1. History of CHF. 2. Hypertension. 3. History of cardiac catheterization. 4. Ovarian tumor removal. 5. History of shoulder cyst. 6. History of CAD, stent. HOME MEDICATIONS: 1. Simvastatin 40 mg at bedtime. 2. Olmesartan/hydrochlorothiazide (Benicar Hct) 20/12.5 mg p.o. daily. 3. Lopressor 25 mg at bedtime and 50 mg p.o. daily. 4. Synthroid 75 mcg p.o. daily. 5. Iron sulfate 325 mg p.o. daily. 6. Pepcid 20 mg p.o. daily. 7. Vitamin D3 5000 q.48 hours. ALLERGIES: SUYAPA. FAMILY HISTORY: No history of heart disease or strokes in the family. SOCIAL HISTORY: No history of smoking. No history of alcohol intake. REVIEW OF SYSTEMS: ENT: Diminished hearing. Diminished vision. CARDIOVASCULAR SYSTEM: As mentioned earlier. RESPIRATORY SYSTEM: As mentioned earlier. GI: As mentioned earlier. : As mentioned earlier. NERVOUS SYSTEM: No numbness, weakness. ALLERGY/IMMUNOLOGY: No asthma, hayfever. MUSCULOSKELETAL: As mentioned earlier. HEMATOLOGY/ONCOLOGY: No history of anemia. ENDOCRINE: Hypothyroidism. CONSTITUTIONAL: As mentioned earlier. DERMATOLOGY: Negative. RHEUMATOLOGY: Negative. PSYCHIATRY: As mentioned earlier. PHYSICAL EXAMINATION: Patient alert and oriented x3. Pulse 90, blood pressure 102/47, respiration 18, temperature normal, pulse ox 100% on 2 L. HEENT: Conjunctivae normal. Oral mucosa dry. NECK: No jugular venous distention. CARDIOVASCULAR SYSTEM: S1, S2 muffled. Ejection systolic murmur. RESPIRATORY SYSTEM: Breath sounds diminished at the bases. No rhonchi. No crackles. ABDOMEN: Soft, obese. Otherwise, mild diffuse discomfort. No guarding. No rigidity. No mass palpable. LEGS: No edema. No swelling. NERVOUS SYSTEM: Higher functions as mentioned earlier. Moves all 4 limbs. No focal motor or sensory deficit. LYMPHATICS: No lymph node palpable in neck, axillae or groin. SKIN: No ulcer, rash, bleeding. JOINTS: No active deforming arthropathy. LABS: WBC 11.9, platelets 140, creatinine 2.11. ASSESSMENT: 1. Acute diarrhea, possible antibiotic-induced. Rule out infective or C difficile colitis. 2. Hypotension secondary to hypovolemia. 3. History of recent urinary tract infection. 4. Renal failure, possibly chronic kidney disease, stage III. 5. Mild thrombocytopenia. 6. Increased white count. 7. History of congestive heart failure. 8. Hypertension. 9. History of cardiac catheterization. 10.History of ovarian tumor removal. 11.History of frequent urinary tract infections. 12.History of coronary artery disease, stent. 13.Tachycardia. 14.FULL CODE. RECOMMENDATIONS AND DISCUSSION: In this 82-year-old woman who presented with multiple medical issues, at this time I recommend to continue current management, continue symptomatic treatment. At this time I recommend further boluses to keep the mean arterial pressure at 65 at least for now. Will continue antibiotics. Follow the cultures. C difficile colitis. Cardiology consultation. Recommend transferring the patient to telemetry and continue to monitor. Prognosis guarded. Will hold the antihypertensive medications because the blood pressure is low today. Further recommendations to follow. Prognosis guarded. Discussed at length with the patient and family, who understand and agree. A copy of this dictation is being forwarded to Dr. Tila Valladares, who is the primary physician please. MMODL / IJN: [id number] /
[2018-09-24] MEDS ORDERED: SODIUM CHLORIDE 0.9% 500 ML 250 ML IV ONE (03:04)
[2018-09-24] MEDS: SODIUM CHLORIDE 0.9% 1,000 ML IV SCH ×2 (03:07→12:57)
[2018-09-24] MEDS: LEVOTHYROXINE 75 MCG TAB PO SCH (06:32)
[2018-09-24] MEDS ORDERED: SODIUM CHLORIDE 0.9% 500 ML 500 ML IV ONE (08:57)
--- NOTE | 2018-09-24 10:53 | CONS ---
CONSULTATION Mrs. Luevano is an 82-year-old female who is followed by Dr. Madeline Dominguez and Blaine Reyes, who presented to the hospital with symptoms of diarrhea, going on for the last 5 days with poor appetite and weakness. Cardiology consultation was requested because of a hypotension. The patient has a history of mild to moderate coronary artery disease by cardiac catheterization and ejection fraction of 50% by echocardiography in the past, history of hypertension, hyperlipidemia, and diabetes mellitus. She had an echocardiogram performed recently that revealed ejection fraction 50% with mild to moderate mitral and mild aortic and tricuspid regurgitation. She denies any chest pain, her breathing has been stable. She has no dizziness, but she feels weak. She denies any palpitation or syncope. No significant peripheral edema. She has no overt GI bleeding and no nausea, no vomiting. MEDICATION: At the time of admission included simvastatin 40 mg daily, Benicar HCT 20-12.5 mg daily, Lopressor 50 in the morning, 25 in the afternoon, Pepcid. She used to be on blood sugar medication that was stopped. REVIEW OF SYSTEMS: RESPIRATORY SYSTEM: She denies any recent wheezing or cough. No history of obstructive lung disease. GI SYSTEM: She had the diarrhea, but no nausea, no GI bleeding. SYSTEM: No dysuria or hematuria. NERVOUS SYSTEM: No history of stroke or seizure. PHYSICAL EXAMINATION: She is an 82-year-old female, alert, oriented, in no apparent distress. On presentation, her blood pressure was in the 80s with the heart rate in the 110s. She has received fluid. Her blood pressure this morning is 93/48. HEAD: Normocephalic. EYES: Sclerae nonicteric. NECK: Good upstroke, no bruit, no venous distention. LUNGS: Clear to auscultation. HEART: Regular rate and rhythm, S1, S2. No S3 with systolic ejection murmur, no diastolic murmur, no rub. ABDOMEN: Soft, nontender. Positive bowel sounds, no organomegaly. EXTREMITIES: No edema, intact distal pulses. LAB DATA: Revealed BUN and creatinine 2.1 and 53. Her creatinine is higher than her baseline renal function. Her potassium 4.1, hemoglobin of 13.7. Her abdominal x-ray shows no free air and right santi-colonic bowel wall edema suggestive of inflammation. IMPRESSION: 1. Diarrhea. Workup in progress. Could be related to antritis. 2. Hypotension related to the dehydration and hypovolemia. 3. Worsening renal function. 4. Mild cardiomyopathy in the past. 5. Coronary disease mild to moderate, stable. 6. History of hypertension in the past. 7. Prior history of hyperlipidemia. 8. Prior history of diabetes, off treatment at this time with stable blood sugar. RECOMMENDATION: I will continue with the IV fluid as you have initiated. Will follow her renal function. At this time, I see no evidence of active cardiac abnormalities. Thank you for this consult. We will follow with you. MUKUNDL / IJN: [id number] /
[2018-09-24] MEDS: HEPARIN SODIUM,PORCINE 5,000 UNIT/ML 1 ML VIAL SQ SCH ×2 (11:13→19:41)
[2018-09-24] MEDS: METOPROLOL TARTRATE 25 MG TAB PO SCH ×2 (11:13→20:56)
[2018-09-24] MEDS: FAMOTIDINE 20 MG TAB PO SCH ×2 (11:13→19:41)
[2018-09-24] MEDS: CHOLECALCIFEROL 1,000 UNIT TAB PO SCH (11:13)
[2018-09-24] MEDS: LEVOFLOXACIN 750MG-D5W PMX 750 MG in DEXTROSE/WATER 1 150ML.BAG IVPB SCH (12:54)
--- NOTE | 2018-09-24 17:11 | XR ---
EXAMINATION TYPE: XR chest 1V DATE OF EXAM: 09/24/2018 COMPARISON: 11/10/2017 HISTORY: Heart failure TECHNIQUE: Single frontal view of the chest is obtained. FINDINGS: There is elevated right diaphragm. There is atelectasis at the right lung base. There is n o heart failure. Heart size is normal. There are chest leads. IMPRESSION: Right basilar atelectasis and elevated right diaphragm could relate to diaphragm paralys is. No change compared to old exam.
[2018-09-24 17:31] LABS: Basophils % (A) 0 %; Eosinophils % (A) 0 %; HCT 37.2 % (34.0-46.0); HGB 11.8 gm/dL (11.4-16.0); Hypochromasia Slight; Lymphocytes # (A) 0.4 k/uL (1.0-4.8); Lymphocytes % (A) 4 %; MCH 29.8 pg (25.0-35.0); MCHC 31.7 g/dL (31.0-37.0); Mean Platelet Volume 9.4; Monocytes % (A) 9 %; Neutrophils # (A) 9.3 k/uL (1.3-7.7); Neutrophils % (A) 84 %; Platelet Count 134 k/uL (150-450); RBC 3.95 m/uL (3.80-5.40); RDW 14.7 % (11.5-15.5); WBC 11.1 k/uL (3.8-10.6)
[2018-09-24] MEDS: ATORVASTATIN 20 MG TAB PO SCH (19:41)
[2018-09-25] MEDS: SODIUM CHLORIDE 0.9% 1,000 ML IV SCH ×2 (05:20→19:02)
[2018-09-25] MEDS ORDERED: SODIUM CHLORIDE 0.9% 250 ML IV SCH (05:30)
[2018-09-25] MEDS: LEVOTHYROXINE 75 MCG TAB PO SCH (06:09)
[2018-09-25 07:00] LABS: Calcium 7.7 mg/dL (8.4-10.2); Potassium 3.6 mmol/L (3.5-5.1)
--- NOTE | 2018-09-25 07:42 | PN ---
PROGRESS NOTE DATE OF SERVICE: 09/24/2018. This 82-year-old woman who was admitted with diarrhea and abdominal pain has got possibly antibiotic induced diarrhea. The patient had C difficile, which was patient ordered, not done yet. UA was noted. No chest pain. No palpitations. No fever. Patient is on IV fluids. CURRENT MEDICATIONS: 1. Tylenol p.r.n. 2. Xanax. 3. Lipitor. 4. Vitamin D3. 5. Pepcid. 6. Heparin. 7. Levaquin 500 mg. 8. Synthroid. 9. Lopressor. 10.Narcan. 11.IV fluids. EXAM: Alert and oriented x3. Pulse 79. Blood pressure 87/43, respiration 20, temperature normal, pulse ox 98% on 3 L. HEENT: Conjunctivae normal. NECK: No JVD. CARDIOVASCULAR: S1, S2 muffled. RESPIRATORY: Breath sounds diminished in the bases. Scattered rhonchi and crackles. ABDOMEN is soft, nontender. LEGS are no edema. No swelling. CENTRAL NERVOUS SYSTEM: Diffusely weak. ASSESSMENT: 1. Acute diarrhea possible antibiotic induced. Rule out intractable C difficile colitis. 2. Hypotension secondary to hypovolemia, possibly. 3. History of recent urinary tract infection. 4. Renal failure, possibly chronic kidney stage III. 5. Mild thrombocytopenia. 6. Increased WBC. 7. History of congestive heart failure. 8. Hypertension. 9. History of cardiac catheterization. 10.History of ovarian tumor removal. 11.History of frequent urinary tract infection. 12.History of coronary artery disease/ stent. 13.Tachycardia. 14.FULL CODE. RECOMMENDATIONS AND DISCUSSION: Continue current medications, monitoring, management and symptomatic treatment. Otherwise, continue with IV fluids. Repeat creatinine. Today's creatinine is not available at this time. I will recommend repeat labs. I would also recommend an 8:00 am cortisol also. Will continue to monitor. Guarded prognosis. Continue the rest of medications. Further recommendations to follow. IV for fluid boluses may also be given carefully. Closely follow. MMODL / IJN: [id number] / GLORIA
[2018-09-25] MEDS: ACETAMINOPHEN TAB 500 MG TAB PO PRN ×2 (08:33→20:10)
[2018-09-25] MEDS: METOPROLOL TARTRATE 25 MG TAB PO SCH (08:34)
[2018-09-25] MEDS: FAMOTIDINE 20 MG TAB PO SCH ×2 (08:34→20:09)
[2018-09-25] MEDS: HEPARIN SODIUM,PORCINE 5,000 UNIT/ML 1 ML VIAL SQ SCH ×2 (08:34→20:10)
--- NOTE | 2018-09-25 10:52 | PN ---
PROGRESS NOTE Mrs. Luevano is an 82-year-old female who presented with diarrhea, evidence of hypotension and worsening renal function. She has no further diarrhea. She has mild abdominal discomfort. She denies any chest pain. No dizziness. No palpitation. She continues to receive IV fluid. She has a known history of mild cardiomyopathy and mild to moderate coronary artery disease in the past. She continues to be at this time on Lipitor 20 mg daily, metoprolol 25 mg twice a day in addition to IV fluid. PHYSICAL EXAMINATION: Blood pressure 96/40 with a heart rate in the 80s. LUNGS: Clear. HEART: Regular rate and rhythm S1, S2. No S3. No rub appreciated. ABDOMEN: Soft, mild tenderness. EXTREMITIES: No edema. LAB DATA: Revealed magnesium 1.4, BUN and creatinine of 48, 1.6, potassium 3.6. Her renal function has improved since yesterday. IMPRESSION: 1. Hypertension related to dehydration. 2. Renal function abnormality, improving. 3. Diarrhea. Workup in progress. 4. Prior history of hypertension. 5. Prior history of mild cardiomyopathy. 6. History of mild to moderate coronary artery disease, stable. 7. Hyperlipidemia. RECOMMENDATIONS: From the cardiac standpoint, we will continue present therapy. Replace her magnesium and depending on her progress, further recommendation will be made. MMODL / IJN: [id number] /
[2018-09-25] MEDS: MAGNESIUM SULFATE-D5W PMX 1 GM in DEXTROSE/WATER 1 100ML.BAG IVPB SCH ×2 (12:37→14:17)
[2018-09-25] MEDS ORDERED: CALCIUM CARBONATE 500 MG CHEWABLE PO PRN (14:38)
[2018-09-25] MEDS: PANTOPRAZOLE 40 MG/10 ML VIAL IVP SCH (15:01)
[2018-09-25] MEDS: LEVOFLOXACIN 750MG-D5W PMX 750 MG in DEXTROSE/WATER 1 150ML.BAG IVPB SCH (15:01)
[2018-09-25 17:46] LABS: Glucose,Whole Blood 132 mg/dL (75-99)
--- NOTE | 2018-09-25 18:01 | PN ---
PROGRESS NOTE DATE OF SERVICE: 09/25/2018. This 82-year-old woman who was admitted with acute diarrhea has been suspected of C difficile colitis. Patient also complains of heartburn also. No chest pain. No palpitations. No fever. PAST MEDICAL HISTORY: Reviewed. REVIEW OF SYSTEMS: CARDIOVASCULAR: No angina. RESPIRATION: As mentioned earlier. GI as mentioned earlier. : As mentioned earlier. CENTRAL NERVOUS SYSTEM: No numbness, weakness. CURRENT MEDICATIONS: Reviewed and include: 1. Tylenol 500 mg q.6h p.r.n. 2. Xanax 0.5 t.i.d. 3. Lipitor 20 mg q.h.s. 4. Tums p.r.n. 5. Pepcid. 6. Heparin 5000 b.i.d. 7. Levaquin. 8. Lopressor. 9. Narcan. 10.Protonix. EXAM: Alert and oriented times three. Pulse is 62. Blood pressure 84/37, respiration 16, temperature is 97.7, pulse ox 98% on 2 L. HEENT is conjunctivae normal. NECK: No JVD. CARDIOVASCULAR: S1, S2 muffled. RESPIRATION: Breath sounds diminished in the bases. No rhonchi. No crackles. ABDOMEN is soft, nontender. No mass palpable. LEGS no edema. No swelling. NERVOUS SYSTEM: No focal deficits. LABS: At this time shows: WBC 7.2, hemoglobin 11.2, sodium 136 and creatinine 1.61. UA noted. ASSESSMENT: 1. Acute diarrhea possible antibiotic induced, rule out intractable C difficile colitis. 2. Possible acute gastroenteritis. 3. Acute renal failure possibly prerenal acute renal failure with acute tubular necrosis. 4. Hypotension secondary to hypovolemia, possibly. 5. History of recent urinary tract infection. 6. Renal failure possibly chronic kidney disease stage III. 7. Thrombocytopenia. 8. Increased WBC. 9. History of congestive heart failure. 10.Hypertension. 11.History of cardiac catheterization. 12.History of ovarian tumor removal. 13.History of frequent urinary tract infections. 14.History of coronary artery disease, stent. 15.History of tachycardia. 16.Possible acute urinary tract infection present on admission. 17.FULL CODE. RECOMMENDATIONS AND DISCUSSION: Continue current medications, continue with monitoring, management and symptomatic treatment. The 8:00 am cortisol level is 35. Otherwise, continue to monitor. Continue with the IV fluids. Creatinine is 1.61, which is improving. We will continue to continue to monitor. See orders for details. Hold metoprolol if the blood pressure is low. Fluid bolus may be given if the blood pressure less than 90. Further recommendations to follow. Prognosis guarded. MMODL / IJN: [id number] /
--- NOTE | 2018-09-25 18:47 | CT ---
EXAMINATION TYPE: CODE STROKE: CT brain wo contr DATE OF EXAM: 09/25/2018 COMPARISON: None HISTORY: code cva CT DLP: 1046.4 mGycm Automated exposure control for dose reduction was used. FINDINGS: There is mild cerebral cortical atrophy. There is no mass effect nor midline shift. There is no sign of intracranial hemorrhage. Calvarium is intact. IMPRESSION: Negative CT scan of the brain. Mild atrophy.
[2018-09-25] MEDS: METOPROLOL TARTRATE 12.5 MG TAB PO SCH (20:10)
[2018-09-25] MEDS: ATORVASTATIN 20 MG TAB PO SCH (20:10)
[2018-09-26] MEDS: ACETAMINOPHEN TAB 500 MG TAB PO PRN ×3 (03:49→21:02)
[2018-09-26] MEDS: SODIUM CHLORIDE 0.9% 1,000 ML IV SCH ×2 (05:01→19:59)
[2018-09-26] MEDS: LEVOTHYROXINE 75 MCG TAB PO SCH (05:29)
[2018-09-26 07:07] LABS: Calcium 8.3 mg/dL (8.4-10.2)
[2018-09-26] MEDS: FAMOTIDINE 20 MG TAB PO SCH (09:47)
[2018-09-26] MEDS: HEPARIN SODIUM,PORCINE 5,000 UNIT/ML 1 ML VIAL SQ SCH ×2 (09:47→21:02)
[2018-09-26] MEDS: CHOLECALCIFEROL 1,000 UNIT TAB PO SCH (09:47)
[2018-09-26] MEDS: PANTOPRAZOLE 40 MG/10 ML VIAL IVP SCH (09:47)
[2018-09-26] MEDS: METOPROLOL TARTRATE 12.5 MG TAB PO SCH ×2 (09:48→21:02)
[2018-09-26 13:32] VITALS: BMI 32.9
--- NOTE | 2018-09-26 14:58 | P.CNNES ---
History of Present Illness Consult date: 09/26/18 Requesting physician: Vandana Casanova Reason for Consult: TIA vs SZ Chief complaint: "I felt sick, shaky, dizziness and saw colors" History of Present Illness: This is an 82 LH female with multiple medical problems who is here with C. difficile diarrhea with dehydration, worsening renal function and hypotension. Her diarrhea has let up, but yesterday while she was talking to her daughter in the room, she suddenly felt sick, lightheaded without vertigo, saw "strips of colors" in front of her and her arms were shaky. She never lost consciousness. There was no antecedent aura or prodrome. No geovanna vu. No repetitive behavior suspicious for automatism. No tongue biting, bowel/bladder incontinence or post- ictal confusion. She felt a little SOB but no CP, F/C/S, N/V, dysuria or other medical symptoms except for her diarrhea. The event lasted around 5 minutes. No recent h/o head/neck trauma. She feels back to her neurological baseline now. Neurologically, denies other episodes of decreased level or loss of consciousness, diplopia, amaurosis, transient monocular visual loss, facial numbness or droop, tinnitus, dysarthria, dysphagia, aphasia, focal numbness/weakness or ataxia. Review of Systems I have performed a 14-point organ ROS with patient that are negative except as per HPI. Past Medical History Past Medical History: Heart Failure, Hypertension Additional Past Medical History / Comment(s): Heart catherization09/11/2000, Ovarian tumor removal 2004. Thyroid disorder and removal in 2007. Cyst on left kidney, frequent uti, shoulder cyst removed in 2000, cataracts right eye 2011, left eye cataract 2011, head cyst removed in 2000 History of Any Multi-Drug Resistant Organisms: None Reported Past Surgical History: Heart Catheterization, Heart Catheterization With Stent, Hernia Repair, Hysterectomy Additional Past Surgical History / Comment(s): left shoulder surgery, peripheral angiography Past Anesthesia/Blood Transfusion Reactions: No Reported Reaction Date of Last Stent Placement:: 0 Past Psychological History: No Psychological Hx Reported Smoking Status: Never smoker Past Alcohol Use History: None Reported Past Drug Use History: None Reported Medications and Allergies Home Medications Medication Instructions Recorded Confirmed Type Cholecalciferol [Vitamin D3 (25 5,000 unit PO Q48H 09/11/18 09/23/18 History Mcg = 1000 Iu)] Famotidine [Pepcid] 20 mg PO DAILY 09/11/18 09/23/18 History Ferrous Sulfate [Feosol] 325 mg PO DAILY 09/11/18 09/23/18 History Levothyroxine Sodium [Synthroid] 75 mcg PO DAILY 09/11/18 09/23/18 History Metoprolol Tartrate [Lopressor] 25 mg PO HS 09/11/18 09/23/18 History Metoprolol Tartrate [Lopressor] 50 mg PO DAILY 09/11/18 09/23/18 History Olmesartan/Hydrochlorothiazide 1 tab PO DAILY 09/11/18 09/23/18 History [Benicar Hct 20-12.5 mg Tablet] Simvastatin 40 mg PO HS 09/11/18 09/23/18 History Allergies Allergy/AdvReac Type Severity Reaction Status Date / Time fexofenadine [From Mila] Allergy Unknown Verified 09/23/18 09:14 Physical Examination - Vital Signs Vital Signs: Vital Signs Temp Pulse Resp BP Pulse Ox 09/26/18 12:16 16 97 09/26/18 12:00 92 16 103/44 97 09/26/18 08:00 93 19 86/40 98 09/26/18 04:00 98.1 F 106 H 18 94/53 97 09/26/18 00:00 99 18 97/46 97 09/25/18 20:00 97.9 F 85 18 96/49 98 09/25/18 19:16 99 09/25/18 18:00 75 18 100/49 99 09/25/18 17:50 71 18 88/49 99 09/25/18 17:45 69 88/42 09/25/18 16:25 99 09/25/18 16:00 95 14 85/43 98 Intake and Output 09/25/18 09/26/18 09/26/18 22:59 06:59 14:59 Intake Total 160 720 Balance 160 720 Intake: Oral 160 720 Other: Voiding Method Diaper Diaper Diaper Incontinent Incontinent Incontinent # Voids 1 Weight 76.5 kg Gen NAD Pleasant and cooperative HEENT NCAT Sclera w/o icterus MMM O/P clear Neck Supple No carotid bruit Cor RRR no m/r/g Lungs CTAB Abd Soft NTND +BS Ext Warm to touch No edema Neuro MS A+Ox4 Normal fluency and comprehension without finger agnosia or left-right disorientation Able to articulate detailed medical history without semantic or phonemic paraphasia CN PERRL VFF no APD EOMI no nystagmus or SCOTTIE V1-3 intact to LT bilaterally Smile symmetric Hearing intact to normal voice bilaterally Equal elevation of palate Tongue midline Sym SCM bilaterally Motor Normal bulk/tone No pronator or leg drift No tremors, asterixis, myoclonus or other adventitious movements Strength 5/5 sym throughout Sens Intact to LT x4 No neglect or extinction Coord No dysmetria on FTN bilaterally DTRs 2+/4 sym throughout Toes downgoing bilaterally no ankle clonus Gait Deferred NIHSS 0 Results - Laboratory Findings CBC and BMP: 09/24/18 16:59 09/26/18 06:41 Abnormal Lab Findings: Abnormal Labs 09/23/18 09/23/18 09/23/18 09:07 09:07 10:26 WBC 11.9 H Plt Count 140 L Neutrophils # 9.7 H Lymphocytes # 0.6 L Monocytes # 1.3 H Sodium Carbon Dioxide BUN 53 H Creatinine 2.11 H Glucose POC Glucose (mg/dL) Calcium Magnesium Total Protein 5.9 L Albumin 3.3 L Amylase <30 L Lipase <10 L Urine Appearance Cloudy H Urine Protein Trace H Urine Ketones 1+ H Urine Blood Trace H Urine Bilirubin 1+ H Ur Leukocyte Esterase Large H Urine WBC 20 H Urine Bacteria Rare H Hyaline Casts 28 H Urine Mucus Rare H 09/24/18 09/25/18 09/25/18 16:59 06:27 06:27 WBC 11.1 H Plt Count 134 L Neutrophils # 9.3 H Lymphocytes # 0.4 L Monocytes # Sodium 136 L Carbon Dioxide 20 L BUN 48 H Creatinine 1.61 H Glucose POC Glucose (mg/dL) Calcium 7.7 L Magnesium 1.4 L Total Protein Albumin Amylase Lipase Urine Appearance Urine Protein Urine Ketones Urine Blood Urine Bilirubin Ur Leukocyte Esterase Urine WBC Urine Bacteria Hyaline Casts Urine Mucus 09/25/18 09/26/18 17:44 06:41 WBC Plt Count Neutrophils # Lymphocytes # Monocytes # Sodium 136 L Carbon Dioxide 17 L BUN 54 H Creatinine 2.39 H Glucose 111 H POC Glucose (mg/dL) 132 H Calcium 8.3 L Magnesium Total Protein Albumin Amylase Lipase Urine Appearance Urine Protein Urine Ketones Urine Blood Urine Bilirubin Ur Leukocyte Esterase Urine WBC Urine Bacteria Hyaline Casts Urine Mucus - Diagnostic Findings Additional findings: CT Head wo cont 09/25/18. Mild global atrophy. No ICH. Nil acute. EEG 09/26/18. Normal awake EEG. No EPD. I have reviewed neuroimages myself. Assessment and Plan Assessment: Episode of dizziness, bilateral photopsias and BUE shakiness- suspect hemodyn amic or metabolic related and not kofi jim vascular or epileptic event. Plan: -May treat BP to normotensive range and avoid hypotension. -Carotid duplex. -Correct all metabolic derangements given recent diarrhea. Her renal function has worsened today. -TSH and B12 to complete metabolic labs. -No activity restrictions from neuro standpoint. -d/w patient in detail. All questions answered. -Neurology will be available again on 09/29/18. Thank you for this consultation. Please call with ?. Time with Patient: Greater than 30 (Time spent in direct patient care, greater than 50% of which was spent in [id number] counseling and coordination of care: 70 minutes.)
--- NOTE | 2018-09-26 15:13 | EEG ---
ELECTROENCEPHALOGRAM REPORT DATE OF TESTIN09/26/2018 CLINICAL HISTORY: This is an 82-year-old left-handed female admitted to the hospital for C. difficile diarrhea. She was dehydrated. She experienced an episode of dizziness, bilateral upper extremity shaking and visual disturbance. EEG was ordered to rule out possible focal seizure activity. TYPE OF RECORDING: Bedside tracing using the 10-20 international electrode placement system. No sedation was given prior to the beginning of this recording. FINDINGS: At the beginning of this recording, there are significant EMG artifacts that obscure the background. Around a minute later, the patient relaxes, at which point there is appearance of a symmetric alpha rhythm between 8-9 Hz that attenuates on eye opening and returns upon eye closure. There are scattered eye blink artifacts. Photic stimulation elicits a symmetric driving response. Hyperventilation is not performed in this recording. There is no sleep architecture seen. There is no background asymmetry, ictal or interictal patterns appreciated. IMPRESSION: This is a normal awake electroencephalogram without background asymmetry or epileptiform discharges. Clinical correlation is advised. HOANG / CHARLOTTEN: [id number] / GLORIA
[2018-09-26] MEDS: LEVOFLOXACIN 750MG-D5W PMX 750 MG in DEXTROSE/WATER 1 150ML.BAG IVPB SCH (15:20)
--- NOTE | 2018-09-26 16:06 | US ---
EXAMINATION TYPE: US carotid duplex BILAT DATE OF EXAM: 09/26/2018 COMPARISON: NONE CLINICAL HISTORY: 82-year-old female Transient alteration of awareness possible TIA. Patient stated b ecame dehydrated and resulted in confusion. TECHNIQUE: Carotid duplex ultrasound examination. Indirect Doppler criteria is utilized. FINDINGS: EXAM MEASUREMENTS: RIGHT: Peak Systolic Velocity (PSV) cm/sec ----- Right CCA: 100.0 ----- Right ICA: 158.8 ----- Right ECA: 162.0 ICA/CCA ratio: 1.6 RIGHT: End Diastole cm/sec ----- Right CCA: 25.7 ----- Right ICA: 37.6 ----- Right ECA: 0.0 LEFT: Peak Systolic Velocity (PSV) cm/sec ----- Left CCA: 81.1 ----- Left ICA: 132.9 ----- Left ECA: 134.5 ICA/CCA ratio: 1.6 LEFT: End Diastole cm/sec ----- Left CCA: 0.0 ----- Left ICA: 36.0 ----- Left ECA: 2.1 VERTEBRALS (direction of flow): Right Vertebral: Antegrade Left Vertebral: Antegrade Rhythm: Normal Supervisor [employer] notes: Moderate mixed, and irregular plaque is noted in bilateral carotid systems with ab normally elevated PSV in Bilateral ICA and in Bilateral ECA. IMPRESSION: Peak systolic velocity measurements may reflect moderate (50-69%) proximal ICA stenosis on either maximus e. If further evaluation is indicated, CTA can be performed. Criteria for Assigning % of Stenosis / Diameter reduction (Estimation based on the indirect measurements of the internal carotid artery velocities (ICA PSV). 1. Normal (no stenosis)=ICA PSV < 125 cm/s: ratio < 2.0: ICA EDV<40 cm/s. 2. Less than 50% stenosis=ICA PSV < 125 cm/s: ratio < 2.0: ICA EDV<40 cm/s. 3. 50 to 69% stenosis=ICA PSV of 125 to 230 cm/s: ration 2.0 ? 4.0: ICA EDV 40-100 cm/s. 4. Greater than 70% stenosis to near occlusion= ICA PSV > 230 cm/s: ratio > 4.0: ICA EDV > 100 cm/s. 5. Near occlusion= ICA PSV velocities may be low or undetectable: variable ratio and ICA EDV. 6. Total occlusion=unable to detect flow.
[2018-09-26] MEDS: IOPAMIDOL-300 CONTRAST 30 ML VIAL (ORAL USE) PO PRN ×2 (17:23→18:18)
--- NOTE | 2018-09-26 18:07 | P.PN ---
Progress Note - Text Progress Note Date: 09/26/18 Carotid duplex reviewed. Shows possible 50-69% proximal BICA stenosis based on peak velocity. Cannot obtain CTA due to renal dysfunction. With this range of carotid stenosis, management is medical that you are already doing with BP control and statin therapy. Would advise aspirin 81mg/day if medically allowed. Will defer to internal medicine to write this order as she does have mild thrombocytopenia. Also suggest repeat carotid duplex in 6 months for reassessment. No other inpatient neuro recs at this time. Neurology will be available again on 09/29/18. Please call with new questions.
--- NOTE | 2018-09-26 19:16 | CT ---
EXAMINATION TYPE: CT abdomen pelvis wo con DATE OF EXAM: 09/26/2018 COMPARISON: None HISTORY: Abdominal pain and vomiting CT DLP: 735.9 mGycm Automated exposure control for dose reduction was used. TECHNIQUE: Helical acquisition of images was performed from the lung bases through the pelvis. FINDINGS: There is oral contrast. There is minimal pleural thickening at the posterior lung bases. There is no pericardial effusion. Spleen appears normal. There is no evidence of pancreatic mass. Liver shows no focal defect. There is mild free fluid around the liver. The bile ducts are not dilated. Gallbladder has possible small calcified gallstones. There is some lobulation of the adrenal glands consistent with hyperplasia. There is [address] upper pole right kidney. There is 5.5 cm cortical cyst lower pole left kidney. There is no hydrone phrosis. Ureters are not dilated. Abdominal aorta is atheromatous. There is some thickening of the wa ll of the proximal and mid sigmoid colon. Appendix is not definitely seen. There is no sign of append icitis. I see no bony destructive process. Abdominal aorta shows no evidence of aneurysm. I see no lizette ny destructive process. There is some osteoarthritis in the right hip joint more than the left. There is some free fluid in the pelvis. There are dilated air and fluid-filled loops of large bowel involv ing the right colon and transverse colon. I do not see evidence of a mechanical bowel obstruction. Th e oral contrast reaches the distal ileum. IMPRESSION: DILATED LARGE BOWEL CONSISTENT WITH ILEUS. THERE IS WALL THICKENING OF SIGMOID COLON SUGGESTIVE OF NO NSPECIFIC COLITIS. THERE IS MILD ASCITES. NO FREE AIR. MILD PLEURAL THICKENING AND ATELECTASIS AT THE LUNG BASES. POSSIBLE SMALL CALCIFIED GALLSTONES.
[2018-09-26] MEDS ORDERED: IPRATROPIUM-ALBUTEROL 3 ML NEB INHALATION PRN ×2 (19:55→20:10)
[2018-09-26] MEDS: ONDANSETRON 4 MG/2 ML VIAL IVP PRN (20:00)
[2018-09-26] MEDS ORDERED: IPRATROPIUM-ALBUTEROL 3 ML NEB INHALATION SCH (20:00)
--- NOTE | 2018-09-26 20:35 | P.PN ---
Subjective 82 y/o female comes in with abd pain, diarrhea. Shewas in [place]. She was started on iv fluids. Levaquin was started as well. Today the patient still complains of abd pain. She says the diarrhea is controlled now. She had a code stroke called yesterday. Looks like she was having seizure. Rhianna was consulted. Objective - Vital Signs Vital signs: Vital Signs Temp 97.5 F L 09/26/18 16:00 Pulse 102 H 09/26/18 16:00 Resp 19 09/26/18 18:05 BP 108/49 09/26/18 16:00 Pulse Ox 98 09/26/18 18:05 Intake & Output 09/26/18 09/26/18 09/27/18 06:59 18:59 06:59 Intake Total 160 720 Balance 160 720 Weight 76.5 kg Intake: Oral 160 720 Other: Voiding Method Diaper Diaper Incontinent Incontinent # Voids 1 - Exam General appearance: alert, in no apparent distress HEENT : JONAS, no pallor , no icterus, no pain or discharge from ear or nose Neck exam: No JVD, no neck node, no thyroid exam. Respiratory exam: Normal breath sounds heard equally bilaterally, no abn sounds Cardiovascular Exam: S1, S2 positive. Peripheral pulses: 2+: Dorsalis Pedis (R), Dorsalis Pedis (L) GI/Abdominal exam: soft, tender, Bs present Extremities exam: no edema, pulses positive Neurological exam: Present: alert and oriented times 3, strenght 5/5 all ext, reflexes +2 positive all extremities. - Labs CBC & Chem 7: 09/24/18 16:59 09/26/18 06:41 Labs: Abnormal Lab Results - Last 24 Hours (Table) 09/26/18 09/26/18 Range/Units 06:41 06:41 Sodium 136 L (137-145) mmol/L Carbon Dioxide 17 L (22-30) mmol/L BUN 54 H (7-17) mg/dL Creatinine 2.39 H (0.52-1.04) mg/dL Glucose 111 H (74-99) mg/dL Calcium 8.3 L (8.4-10.2) mg/dL Vitamin B12 1634.0 H (200.0-944.0) pg/mL Microbiology - Last 24 Hours (Table) 09/23/18 14:20 Blood Culture - Preliminary Blood No Growth after 72 hours Assessment and Plan Assessment: - ABd pain secondary to colitis and Ileus - [place] - Hypovolumia - H/O recent UTI on antibitics - CAD - CHF - Plan: - Ct abd ordered today showed colitis and ileus - On levaquin already, will start flagyl and consult surgery to the family's insistance. - Cdiff assay pending - Continue gentle fluid hydration - Renal functions worse today. Will consult nephrology. - Continue rst of the medical care - Will f/u
[2018-09-26] MEDS: metroNIDAZOLE-NS PMX 500 MG in SALINE 1 100ML.BAG IVPB SCH (21:01)
[2018-09-26] MEDS: ATORVASTATIN 20 MG TAB PO SCH (21:02)
[2018-09-26] MEDS: IPRATROPIUM-ALBUTEROL 3 ML NEB INHALATION SCH (21:03)
[2018-09-27] MEDS: metroNIDAZOLE-NS PMX 500 MG in SALINE 1 100ML.BAG IVPB SCH ×2 (03:24→12:27)
[2018-09-27 07:29] LABS: HCT 38.5 % (34.0-46.0); HGB 12.2 gm/dL (11.4-16.0); Hypochromasia Slight; MCH 29.3 pg (25.0-35.0); MCHC 31.6 g/dL (31.0-37.0); MCV 92.8 fL (80.0-100.0); Mean Platelet Volume 9.4; Platelet Count 198 k/uL (150-450); RBC 4.15 m/uL (3.80-5.40); RDW 14.3 % (11.5-15.5); WBC 23.1 k/uL (3.8-10.6)
[2018-09-27] MEDS ORDERED: MIDODRINE 5 MG TAB PO SCH ×2 (07:30→17:30)
[2018-09-27 07:34] LABS: Calcium 8.1 mg/dL (8.4-10.2); Potassium 3.7 mmol/L (3.5-5.1)
[2018-09-27] MEDS: PANTOPRAZOLE 40 MG TABLET PO SCH (07:40)
[2018-09-27] MEDS: LEVOTHYROXINE 75 MCG TAB PO SCH (07:40)
[2018-09-27] MEDS: IPRATROPIUM-ALBUTEROL 3 ML NEB INHALATION SCH ×2 (07:57→19:17)
--- NOTE | 2018-09-27 08:02 | XR ---
EXAMINATION TYPE: XR chest 2V DATE OF EXAM: 09/27/2018 COMPARISON: 09/24/2018 TECHNIQUE: PA and lateral views submitted. HISTORY: Shortness of breath FINDINGS: Persistent elevated right hemidiaphragm with subsegmental consolidation. Left lung clear. Heart size stable. Arthropathy of the shoulders. No pneumothorax or overt failure. Hypertrophic and degenerative changes spine. Suspect tiny bilateral pleural effusions. IMPRESSION: 1. Stable right hemidiaphragm elevation with persistent right basilar atelectasis or infiltrate. Sergey elate for phrenic nerve palsy. 2. Tiny bilateral pleural effusions.
[2018-09-27] MEDS: METOPROLOL TARTRATE 12.5 MG TAB PO SCH ×2 (09:12→21:44)
[2018-09-27] MEDS: FAMOTIDINE 20 MG TAB PO SCH (09:31)
[2018-09-27] MEDS: HEPARIN SODIUM,PORCINE 5,000 UNIT/ML 1 ML VIAL SQ SCH ×2 (09:31→21:44)
[2018-09-27] MEDS: SODIUM CHLORIDE 0.9% 1,000 ML IV SCH (09:32)
--- NOTE | 2018-09-27 09:35 | P.GSCN ---
History of Present Illness Consult date: 09/27/18 History of present illness: CHIEF COMPLAINT: Abdominal pain HISTORY OF PRESENT ILLNESS: The patient is a 82 year old female who comes in with bilateral upper abdominal pain and diarrhea. She also has new acute kidney injury and increased WBC this morning. She is tolerating liquids and passing flatus. No reports of gross blood in stools. No CDiff assay obtained yet. She reports that in the last 2 days she has increased abdominal pain. She has had several colonoscopies, "they usually can't get far with the scopes." Her last colonoscopy was more than 5 to 10 years ago. General surgery is consulted for ileus. PAST MEDICAL HISTORY: See list. PAST SURGICAL HISTORY: See list. MEDICATIONS: See list. ALLERGIES: See list. SOCIAL HISTORY: No illicit drug use FAMILY HISTORY: No reports of Crohn's disease or inflammatory bowel disease REVIEW OF ORGAN SYSTEMS: CONSTITUTIONAL: No fevers or chills. EYES: Denies any trouble with vision. No glasses. HEENT: No difficulties with hearing. No nosebleeds. No difficulty swallowing. RESPIRATORY: Denies pneumonia. CARDIOVASCULAR: Current work up for heart failure. GASTROINTESTINAL: Has change in bowel habits and gas bloat. Has anemia. GENITOURINARY: No gross blood in urine or increased urinary frequency. NEUROLOGICAL: Denies any numbness or tingling along the distal extremities. No seizure disorders or headaches. MUSCULOSKELETAL: Has back pain, stiffness or joint arthritis. SKIN: No current skin cancer. No rash. PSYCHIATRIC: Denies current depression or suicidal thoughts. ENDOCRINE: Has thyroid disorders. Denies any blood sugar glucose intolerance. HEME/LYMPHATIC: Denies any lumps and bumps around the neck. No recent deep venous thrombosis. ALLERGY/IMMUNOLOGY: No immunoglobulin therapy. No immune deficiencies. BREAST: Denies current breast lumps, pain or nipple discharge. PHYSICAL EXAM: VITALS: Reviewed CONSTITUTIONAL: Well developed and in no acute distress. EYES: Conjuctivae without sclera icterus. Pupils are equally round and reactive to light. Extraocular movements grossly intact. HEAD, EARS, NOSE, THROAT: Moist buccal mucosa. Head is atraumatic, normocephalic. Hears conversational speech. No nasal drainage. Good dentition. NECK: Supple. No JV distention. No thyroidomegaly. RESPIRATORY: Non-labored respirations and equal bilateral excursions. No gross wheezes. CARDIOVASCULAR: Regular rate and rhythm. Extremities without moderate edema. Palpable 2+ radial pulses. ABDOMEN: Soft, no peritonitis. Mild tenderness at left upper quadrant. Well healed lower midline incision. LYMPH: No neck lymphadenopathy. No axillary lymphadenopathy. MUSCULOSKELETAL: Gait within normal limits. Range of motion bilateral upper extremities within normal limits. Nail and fingers with good capillary refill. SKIN: Warm and well perfused with good skin turgor. NEUROLOGIC: Cranial nerves I through XII grossly intact. Sensation upper and extremities intact. No focal or lateralizing signs. PSYCH: Appropriate affect. Alert and oriented to person, place and time. Displays appropriate insight. CLINCAL LABS: Reviewed. WBC elevated to over 20,000+ RADIOLOGY: Report reviewed. Radiology report also confirms ileus with possible colitis. IMAGING: Independently reviewed. CT of the abdomen/pelvis personally reviewed with diffuse distention of the colon with thickening at the sigmoid. No free air. A lesion cannot be excluded as this is my personal interpretation. ASSESSMENT: 1. Abnormal CT scan for ileus 2. Diarrhea with colitis 3. Leukocytosis 4. Acute kidney injury. PLAN: 1. In light of her acute kidney injury and abdominal pain, colonoscopy at this time is deferred. 2. Recommend CDiff assay. 3. Continue liquid diet 4. Recommend GI consultation for evaluation of colitis as well. Thank you for this kind consultation. Past Medical History Past Medical History: Heart Failure, Hypertension Additional Past Medical History / Comment(s): Heart catherization09/11/2000, Ovarian tumor removal 2004. Thyroid disorder and removal in 2007. Cyst on left kidney, frequent uti, shoulder cyst removed in 2000, cataracts right eye 2011, left eye cataract 2011, head cyst removed in 2000 History of Any Multi-Drug Resistant Organisms: None Reported Past Surgical History: Heart Catheterization, Heart Catheterization With Stent, Hernia Repair, Hysterectomy Additional Past Surgical History / Comment(s): left shoulder surgery, peripheral angiography Past Anesthesia/Blood Transfusion Reactions: No Reported Reaction Date of Last Stent Placement:: 0 Past Psychological History: No Psychological Hx Reported Smoking Status: Never smoker Past Alcohol Use History: None Reported Past Drug Use History: None Reported Medications and Allergies Home Medications Medication Instructions Recorded Confirmed Type Cholecalciferol [Vitamin D3 (25 5,000 unit PO Q48H 09/11/18 09/23/18 History Mcg = 1000 Iu)] Famotidine [Pepcid] 20 mg PO DAILY 09/11/18 09/23/18 History Ferrous Sulfate [Feosol] 325 mg PO DAILY 09/11/18 09/23/18 History Levothyroxine Sodium [Synthroid] 75 mcg PO DAILY 09/11/18 09/23/18 History Metoprolol Tartrate [Lopressor] 25 mg PO HS 09/11/18 09/23/18 History Metoprolol Tartrate [Lopressor] 50 mg PO DAILY 09/11/18 09/23/18 History Olmesartan/Hydrochlorothiazide 1 tab PO DAILY 09/11/18 09/23/18 History [Benicar Hct 20-12.5 mg Tablet] Simvastatin 40 mg PO HS 09/11/18 09/23/18 History Allergies Allergy/AdvReac Type Severity Reaction Status Date / Time fexofenadine [From Mila] Allergy Unknown Verified 09/23/18 09:14 Surgical - Exam Vital Signs Temp Pulse Resp BP Pulse Ox 98.9 F 113 H 18 88/41 93 L 09/23/18 08:29 09/23/18 08:29 09/23/18 08:29 09/23/18 08:29 09/23/18 08:29 Results - Labs 09/27/18 06:43 09/27/18 06:43 Abnormal Lab Results - Last 24 Hours (Table) 09/26/18 09/27/18 09/27/18 Range/Units 06:41 06:43 06:43 WBC 23.1 H (3.8-10.6) k/uL Sodium 135 L (137-145) mmol/L Carbon Dioxide 16 L (22-30) mmol/L BUN 64 H (7-17) mg/dL Creatinine 3.04 H (0.52-1.04) mg/dL Glucose 73 L (74-99) mg/dL Calcium 8.1 L (8.4-10.2) mg/dL Vitamin B12 1634.0 H (200.0-944.0) pg/mL Microbiology - Last 24 Hours (Table) 09/23/18 14:20 Blood Culture - Preliminary Blood No Growth after 72 hours Diabetes panel 09/27/18 Range/Units 06:43 Sodium 135 L (137-145) mmol/L Potassium 3.7 (3.5-5.1) mmol/L Chloride 106 (98-107) mmol/L Carbon Dioxide 16 L (22-30) mmol/L BUN 64 H (7-17) mg/dL Creatinine 3.04 H (0.52-1.04) mg/dL Glucose 73 L (74-99) mg/dL Calcium 8.1 L (8.4-10.2) mg/dL Thyroid panel 09/26/18 Range/Units 06:41 TSH 4.460 (0.465-4.680) mIU/L Calcium panel 09/27/18 Range/Units 06:43 Calcium 8.1 L (8.4-10.2) mg/dL Pituitary panel 09/26/18 09/27/18 Range/Units 06:41 06:43 Sodium 135 L (137-145) mmol/L Potassium 3.7 (3.5-5.1) mmol/L Chloride 106 (98-107) mmol/L Carbon Dioxide 16 L (22-30) mmol/L BUN 64 H (7-17) mg/dL Creatinine 3.04 H (0.52-1.04) mg/dL Glucose 73 L (74-99) mg/dL Calcium 8.1 L (8.4-10.2) mg/dL TSH 4.460 (0.465-4.680) mIU/L Adrenal panel 09/27/18 Range/Units 06:43 Sodium 135 L (137-145) mmol/L Potassium 3.7 (3.5-5.1) mmol/L Chloride 106 (98-107) mmol/L Carbon Dioxide 16 L (22-30) mmol/L BUN 64 H (7-17) mg/dL Creatinine 3.04 H (0.52-1.04) mg/dL Glucose 73 L (74-99) mg/dL Calcium 8.1 L (8.4-10.2) mg/dL Assessment and Plan (1) Ileus Current Visit: Yes Status: Acute Code(s): K56.7 - ILEUS, UNSPECIFIED SNOMED Code(s): 281576288 (2) Abnormal CT of the abdomen Current Visit: Yes Status: Acute Code(s): R93.5 - ABN FINDINGS ON DX IMAGING OF ABD REGIONS, INC RETROPERITON SNOMED Code(s): 15105458132259798 (3) Acute renal failure (ARF) Current Visit: Yes Status: Acute Code(s): N17.9 - ACUTE KIDNEY FAILURE, UNSPECIFIED SNOMED Code(s): 48387493 (4) Leukocytosis Current Visit: Yes Status: Acute Code(s): D72.829 - ELEVATED WHITE BLOOD CELL COUNT, UNSPECIFIED SNOMED Code(s): 942054881 (5) Colitis Current Visit: Yes Status: Acute Code(s): K52.9 - NONINFECTIVE GASTROENTERITIS AND COLITIS, UNSPECIFIED SNOMED Code(s): 33065118
--- NOTE | 2018-09-27 10:44 | CONS ---
CONSULTATION REASON FOR CONSULT: Renal failure. HISTORY OF PRESENT ILLNESS: The patient is an 82-year-old female who was initially admitted to the hospital on 09/23/2018 with complaints of diarrhea. She was hypotensive. She is currently maintained on IV fluids. Patient also has underlying atrial fibrillation. Her serum creatinine was 2.1 and went down to 1.6 on 09/25/2018. This morning it is up to 3.0. Systolic blood pressure has remained in the 80s for the last 2-3 days, going up to 108 to 103 mmHg, and this morning it is back up to 105 mmHg systolic. Urine output has been minimal, according to nursing staff. The patient denies any significant chest pains or shortness of breath at this time. Her fluids were held last night. There are no other nephrotoxic agents on board at this time. PAST MEDICAL HISTORY: Past medical history is significant for: 1. Hypertension. 2. Heart failure. 3. Coronary artery disease. 4. Hypothyroidism. 5. History of ovarian tumor, status post removal. PAST SURGICAL HISTORY: 1. Cardiac catheterization. 2. Coronary stent placement. 3. Hernia repair. 4. Hysterectomy. 5. Left shoulder surgery. SOCIAL HISTORY: Negative for smoking, drug abuse or alcohol abuse. MEDICATIONS: Medications at home prior to admission included: 1. Vitamin D. 2. Pepcid. 3. Iron. 4. Synthroid. 5. Lopressor. 6. Olmesartan/hydrochlorothiazide. 7. Simvastatin. ALLERGIES: ALLERGIES include SUYAPA. REVIEW OF SYSTEMS: As per HPI. Other systems negative. PHYSICAL EXAMINATION: On examination, patient is currently comfortable, awake. She is not in any acute distress. VITAL SIGNS: Blood pressure 105/54, heart rate 97 per minute. She is afebrile. EXAMINATION OF THE HEART: S1 and S2. EXAMINATION OF LUNGS: Bilateral breath sounds are heard. ABDOMEN: Soft, non-tender. Examination of lower extremities shows no significant edema. FILLER FEEDER exam is grossly intact. LABS: Sodium 135, potassium 3.7, CO2 16, BUN 64, serum creatinine 3.04, hemoglobin 12.2 g/dL. Cortisol was 35. ASSESSMENT: 1. Acute kidney injury secondary to hypotension, hypoperfusion, acute tubular necrosis. ATN. Check accurate I&O. Also check post-void residual. Rule out urine retention. Will check a chest x-ray and then we will decide if patient needs IV fluids. She has been maintained on IV fluids since admission for the last 4 days. No ongoing diarrhea or vomiting at this point. 2. Metabolic acidosis secondary to renal failure. Add oral sodium bicarb for now. 3. Hypotension with normal cortisol level. Add midodrine for blood pressure support. 4. Atrial fibrillation with heart rate staying slightly on the high side, maintained on Lopressor. 5. Abdominal pain, CT showing colitis/ileus. PLAN: Add midodrine. Check chest x-ray. Hold IV fluids until the x-ray is done. Check post- void residual. Check ultrasound of the kidneys. Will repeat labs in a.m. Avoid any nephrotoxic agents. Hold off on diuretics and angiotensin receptor blockers for now.Add oral sodium bicarb. Thank you for this consultation. We will continue to follow the patient with you during her hospitalization. MMPAULYL / CHARLOTTEN: [id number] / MTDD
--- NOTE | 2018-09-27 11:52 | US ---
EXAMINATION TYPE: US renals and bladder DATE OF EXAM: 09/27/2018 COMPARISON: NONE CLINICAL HISTORY: RF. Low renal function test. EXAM MEASUREMENTS: Right Kidney: 9.9 x 4.1 x 3.1 cm Left Kidney: 9.6 x 4.1 x 3.6 cm Right Kidney: Anechoic area upper pole 2.1 x 1.5 x 1.8cm. Left Kidney: Anechoic area lower pole 8.3 x 5.7 x 5.1cm. Bladder: Nondistended and limited in evaluation. Bilateral Jets seen: No There is no evidence for hydronephrosis at this point in time. No nephrolithiasis is seen. IMPRESSION: Bilateral renal cysts.
[2018-09-27] MEDS ORDERED: MIDODRINE 5 MG TAB PO STA (12:03)
--- NOTE | 2018-09-27 14:24 | P.PN ---
Subjective 82 y/o female comes in with abd pain, diarrhea. Shewas in [place]. She was started on iv fluids. Levaquin was started as well. Today the patient still complains of abd pain. She says the diarrhea is controlled now. She had a code stroke called yesterday. Looks like she was having seizure. Rhianna was consulted. 09/27/2018 Patient was still complaining of abdominal pain She said that she still nauseous. Her pressures were low this morning Objective - Vital Signs Vital signs: Vital Signs Temp 97.5 F L 09/27/18 11:38 Pulse 84 09/27/18 11:38 Resp 18 09/27/18 11:38 BP 74/35 09/27/18 11:38 Pulse Ox 100 09/27/18 11:38 Intake & Output 09/26/18 09/27/18 09/27/18 18:59 06:59 18:59 Intake Total 720 100 240 Output Total 0 Balance 720 100 240 Weight 76.5 kg 83.1 kg Intake: Intake, IV Titration 100 Amount metroNIDAZOLE-NS PMX 500 100 mg In Saline 1 100ml.bag @ 100 mls/hr IVPB Q8H [facility] Rx#:[id number] Oral 720 240 Output: Urine 0 Other: Voiding Method Diaper Diaper Bedside Commode Incontinent Incontinent # Voids 1 1 - Exam General appearance: alert, in no apparent distress HEENT : JONAS, no pallor , no icterus, no pain or discharge from ear or nose Neck exam: No JVD, no neck node, no thyroid exam. Respiratory exam: Normal breath sounds heard equally bilaterally, no abn sounds Cardiovascular Exam: S1, S2 positive. Peripheral pulses: 2+: Dorsalis Pedis (R), Dorsalis Pedis (L) GI/Abdominal exam: soft, tender, Bs present Extremities exam: no edema, pulses positive Neurological exam: Present: alert and oriented times 3, strenght 5/5 all ext, reflexes +2 positive all extremities. - Labs CBC & Chem 7: 09/27/18 06:43 09/27/18 06:43 Labs: Abnormal Lab Results - Last 24 Hours (Table) 09/26/18 09/27/18 09/27/18 Range/Units 06:41 06:43 06:43 WBC 23.1 H (3.8-10.6) k/uL Sodium 135 L (137-145) mmol/L Carbon Dioxide 16 L (22-30) mmol/L BUN 64 H (7-17) mg/dL Creatinine 3.04 H (0.52-1.04) mg/dL Glucose 73 L (74-99) mg/dL Calcium 8.1 L (8.4-10.2) mg/dL Vitamin B12 1634.0 H (200.0-944.0) pg/mL Microbiology - Last 24 Hours (Table) 09/23/18 14:20 Blood Culture - Preliminary Blood No Growth after 72 hours Assessment and Plan Assessment: - ABd pain secondary to colitis and Ileus - [place] - Hypovolumia - H/O recent UTI on antibitics - CAD - CHF - Plan: 09/26/2018 - Ct abd ordered today showed colitis and ileus - On levaquin already, will start flagyl and consult surgery to the family's i nsistance. - Cdiff assay pending - Continue gentle fluid hydration - Renal functions worse today. Will consult nephrology. - Continue rst of the medical care - Will f/u 09/27/2018 - Patient on will be continued on Levaquin and Flagyl - Patient blood pressures were low this morning. We'll give her 2 50 mL bolus. The patient blood pressure not improving patient will need to be transferred to ICU. Discussed with Dr. Perez as well - We'll continue rest of medications
--- NOTE | 2018-09-27 15:47 | XR ---
EXAMINATION TYPE: XR chest 1V DATE OF EXAM: 09/27/2018 COMPARISON: Today HISTORY: TECHNIQUE: Single frontal view of the chest is obtained. FINDINGS: There is elevated right diaphragm. There is linear density at the right lung base. There i s no heart failure. Heart size is normal. There are chest leads. IMPRESSION: There is right basilar atelectasis with chronic elevated right diaphragm unchanged.
--- NOTE | 2018-09-27 15:49 | XR ---
EXAMINATION TYPE: XR KUB portable DATE OF EXAM: 09/27/2018 COMPARISON: 09/23/2018 HISTORY: Constipation. Pain. TECHNIQUE: 2 view supine FINDINGS: There is gaseous distention of the large bowel. There is no significant retained fecal mate rial. There is no sign of free air. There is no evidence of a mass. IMPRESSION: Gas-filled large bowel consistent with mild ileus or air swallowing. Large bowel gas incr eased slightly compared to old exam.
[2018-09-27] MEDS: DEXTROSE 5% IN WATER 1,000 ML with SODIUM BICARB (1 MEQ/ML) 150 ML IV SCH (16:33)
[2018-09-27] MEDS: VANCOMYCIN ORAL SOLUTION 250 MG/5 ML BOTTLE PO SCH (16:34)
[2018-09-27] MEDS: PIPERACILLIN-TAZOBACTAM 3.375 GM in SODIUM CHLORIDE 0.9% 100 ML IVPB SCH (16:34)
[2018-09-27] MEDS: CHERRY FLAVOR 60 ML BOTTLE PO SCH (16:34)
[2018-09-27 17:31] LABS: Glucose,Whole Blood 91 mg/dL (75-99)
[2018-09-27] MEDS: ACETAMINOPHEN TAB 500 MG TAB PO PRN (18:20)
[2018-09-27 18:55] LABS: ABG HCO3 16 mmol/L (21-25); ABG Oxygen Saturation 97.8 % (94-97); ABG PCO2 35 mmHg (35-45); ABG PH 7.27 (7.35-7.45); ABG PO2 95 mmHg (83-108); ABG TCO2 17 mmol/L (19-24); Allen Test Performed? Yes
[2018-09-27] MEDS ORDERED: POTASSIUM CHLORIDE ER 20 MEQ TAB.ER PO SCH (19:00)
[2018-09-27] MEDS ORDERED: SODIUM CHLORIDE 0.9% 1,000 ML IV ONE (19:32)
[2018-09-27] MEDS ORDERED: metroNIDAZOLE 500 MG TAB PO SCH (20:00)
--- NOTE | 2018-09-27 21:32 | P.CONS ---
History of Present Illness - Reason for Consult Consult date: 09/27/18 Colitis Requesting physician: Luba Ramirez - Chief Complaint Diarrhea - History of Present Illness 82-year-old female with a medical history significant for CHF, hypertension, oophrectomy for tumor removal, coronary artery disease, hernia repair and recurrent UTIs who presented to the hospital with complaints of diarrhea and abdominal pain. History is been taken from the patient and her daughter who is sitting bedside. Initially the patient had been treated in the outpatient setting for a urinary tract infection with Keflex. She subsequently developed what he described as 5-6 loose bowel movements without blood daily. The patient presented to the hospital for further evaluation and reports that since that time she has had no further bowel movements. The patient describes pain in her lower abdomen described as cramping in nature. Last colonoscopy was approximately 5 years ago and she is unsure of the results. Currently she is receiving treatments with Levaquin and Flagyl. WBC 23.1, hemoglobin 12.2, platelet count 198,000, creatinine greater than 3. She had a computed tomography scan of the abdomen which showed dilated large bowel with thickened sigmoid colitis and mild ascites. Seen in bed today she was reporting no bowel movements since admission and currently she is not passing any flatus. She continues to report abdominal pain and nausea and decreased oral intake secondary to her symptoms. After the patient was seen this morning she was transferred to the ICU for persistent hypotension. An x-ray ordered after her initial evaluation showed increased air in the large bowel suggestive of ileus. Review of Systems REVIEW OF SYSTEMS: CONSTITUTIONAL: Denies any fevers, chills, weight change or fatigue. CARDIOVASCULAR: Denies any chest pain, palpitations but was transferree ICU for low blood pressure. RESPIRATORY: Denies any shortness of breath, hemoptysis or cough. GENITOURINARY: No dysuria or hematuria. MUSCULOSKELETAL: No weakness reported. SKIN: Denies any new rashes or lesions, jaundice or pallor. PSYCHIATRIC: Denies any depression or anxiety. NEUROLOGY: Denies headache, denies any new focal deficits. EARS/NOSE/THROAT: No recent hearing change, congestion, nasal discharge or sore throat. EYES: No pain in eyes, discharge or change in vision. GASTROINTESTINAL: As per HPI. Past Medical History Past Medical History: Heart Failure, Hypertension Additional Past Medical History / Comment(s): Heart catherization09/11/2000, Ovarian tumor removal 2004. Thyroid disorder and removal in 2007. Cyst on left kidney, frequent uti, shoulder cyst removed in 2000, cataracts right eye 2011, left eye cataract 2011, head cyst removed in 2000 History of Any Multi-Drug Resistant Organisms: None Reported Past Surgical History: Heart Catheterization, Heart Catheterization With Stent, Hernia Repair, Hysterectomy Additional Past Surgical History / Comment(s): left shoulder surgery, peripheral angiography Past Anesthesia/Blood Transfusion Reactions: No Reported Reaction Date of Last Stent Placement:: 0 Past Psychological History: No Psychological Hx Reported Smoking Status: Never smoker Past Alcohol Use History: None Reported Past Drug Use History: None Reported Additional History: family history: Reviewed with the patient and noncontributory to current medical presentation. Medications and Allergies Home Medications Medication Instructions Recorded Confirmed Type Cholecalciferol [Vitamin D3 (25 5,000 unit PO Q48H 09/11/18 09/23/18 History Mcg = 1000 Iu)] Famotidine [Pepcid] 20 mg PO DAILY 09/11/18 09/23/18 History Ferrous Sulfate [Feosol] 325 mg PO DAILY 09/11/18 09/23/18 History Levothyroxine Sodium [Synthroid] 75 mcg PO DAILY 09/11/18 09/23/18 History Metoprolol Tartrate [Lopressor] 25 mg PO HS 09/11/18 09/23/18 History Metoprolol Tartrate [Lopressor] 50 mg PO DAILY 09/11/18 09/23/18 History Olmesartan/Hydrochlorothiazide 1 tab PO DAILY 09/11/18 09/23/18 History [Benicar Hct 20-12.5 mg Tablet] Simvastatin 40 mg PO HS 09/11/18 09/23/18 History Allergies Allergy/AdvReac Type Severity Reaction Status Date / Time fexofenadine [From Mila] Allergy Unknown Verified 09/23/18 09:14 Physical Exam Vitals: Vital Signs Temp Pulse Pulse Resp BP Pulse Ox 09/27/18 11:38 97.5 F L 84 18 74/35 100 09/27/18 08:10 80 09/27/18 08:00 97.0 F L 78 18 83/50 96 09/27/18 07:59 76 09/27/18 04:44 98.2 F 97 18 105/44 96 09/27/18 00:54 98.1 F 100 18 82/46 99 09/26/18 21:38 97.7 F 117 H 18 127/81 99 09/26/18 21:13 76 09/26/18 21:03 78 99 09/26/18 18:05 19 98 09/26/18 16:16 19 98 09/26/18 16:00 97.5 F L 102 H 19 108/49 98 09/26/18 14:16 16 97 Intake and Output 09/26/18 09/27/18 09/27/18 22:59 06:59 14:59 Intake Total 100 240 Output Total 0 Balance 100 240 Intake: Intake, IV Titration 100 Amount metroNIDAZOLE-NS PMX 500 100 mg In Saline 1 100ml.bag @ 100 mls/hr IVPB Q8H [facility] Rx#:[id number] Oral 240 Output: Urine 0 Other: Voiding Method Diaper Diaper Bedside Commode Incontinent Incontinent # Voids 1 1 Weight 83.1 kg On physical examination, patient appears comfortable in no apparent distress. HEAD: Normocephalic, atraumatic. EYES: No scleral icterus. No conjunctival injection. MOUTH: No lesions, tongue midline. NECK: Trachea midline, no gross abnormalities. CHEST: decreased air entry bilaterally. HEART: S1-S2 appreciated, no murmurs appreciated. ABDOMEN: Soft, obese, with diffuse tenderness to palpation. Bowel sounds are hypoactive. No organomegaly. No guarding or rigidity. EXTREMITIES: No pedal edema. SKIN: No rashes, no jaundice. NEUROLOGIC: Alert and oriented x3. No focal deficits. Results CBC & Chem 7: 09/27/18 06:43 09/27/18 19:19 Labs: Abnormal Lab Results - Last 24 Hours (Table) 09/26/18 09/27/18 09/27/18 Range/Units 06:41 06:43 06:43 WBC 23.1 H (3.8-10.6) k/uL Sodium 135 L (137-145) mmol/L Carbon Dioxide 16 L (22-30) mmol/L BUN 64 H (7-17) mg/dL Creatinine 3.04 H (0.52-1.04) mg/dL Glucose 73 L (74-99) mg/dL Calcium 8.1 L (8.4-10.2) mg/dL Vitamin B12 1634.0 H (200.0-944.0) pg/mL Microbiology - Last 24 Hours (Table) 09/23/18 14:20 Blood Culture - Preliminary Blood No Growth after 72 hours Abdominal x-ray: report reviewed (x-ray abdomen significant for increased air in the large bowel suggestive of mild ileus) Assessment and Plan (1) Ileus Narrative/Plan: 82-year-old female with a multiple medica comorbidities who presented to the hospital with complaints of diarrhea and abdominal pain. She developed 5-6 l oose bowel movements without blood daily after a course of Keflex f urinary tract infection. The patient presented to the hospital for further evaluation and reports that since that time she has had no further bowel movements. With pain in her lower abdomen described as cramping in nature. However, since admission the patient states she has had no bowel movements and is currently reporting no flatus as well, with associated nausea and decreased oral intake. She had a computed tomography scan of the abdomen which showed dilated large bowel with thickened sigmoid colitis and mild ascites. An x-ray ordered subsequently showed increased air in the large bowel suggestive of ileus.unclear etiology, may be related to infection, electrolyte abnormalities or mass in the sigmoid with thickening noted and described as colitis or other etiology. Current Visit: Yes Status: Acute Code(s): K56.7 - ILEUS, UNSPECIFIED SNOMED Code(s): 387635759 (2) Nausea Current Visit: Yes Status: Acute Code(s): R11.0 - NAUSEA SNOMED Code(s): 206074436 (3) Colitis Current Visit: Yes Status: Acute Code(s): K52.9 - NONINFECTIVE GASTROENTERITIS AND COLITIS, UNSPECIFIED SNOMED Code(s): 59279995 Plan: Supportive care Nothing by mouth Continue to monitor CBC, CMP with aggressive replacement of electrolytes Appreciate recommendations from surgical service, they have been updated on the patient's status X-ray abdomen reviewed Lactic acid ordered Repeat x-ray in the a.m. Continue antibiotic therapy Patient will need evaluation of the sigmoid colon pending clinical course, either in the inpatient or outpatient setting pending her clinical course Thank you for allowing us to participate in the care of the patient we will continue to follow
[2018-09-27] MEDS: SODIUM BICARBONATE TAB 650 MG TAB PO SCH (21:38)
[2018-09-27] MEDS: ATORVASTATIN 20 MG TAB PO SCH (21:45)
[2018-09-27] MEDS ORDERED: Phenol 1.4% Sore Throat Spray Bottle MUCOUS MEM PRN (22:56)
[2018-09-27] MEDS ORDERED: FUROSEMIDE 10 MG/ML 10 ML VIAL IV STA (23:33)
[2018-09-28] MEDS: CHERRY FLAVOR 60 ML BOTTLE PO SCH ×4 (00:24→17:35)
[2018-09-28] MEDS: VANCOMYCIN ORAL SOLUTION 250 MG/5 ML BOTTLE PO SCH ×4 (00:25→17:35)
[2018-09-28] MEDS: MIDODRINE 5 MG TAB PO SCH ×5 (00:26→16:21)
[2018-09-28] MEDS: PIPERACILLIN-TAZOBACTAM 3.375 GM in SODIUM CHLORIDE 0.9% 100 ML IVPB SCH ×3 (00:26→16:21)
--- NOTE | 2018-09-28 00:28 | XR ---
EXAM: XR Chest, 1 View CLINICAL HISTORY: ITS.REASON XR Reason: NG tube placement TECHNIQUE: Frontal view of the chest. COMPARISON: No relevant prior studies available. FINDINGS: Lungs: Unremarkable. No consolidation. Pleural space: Unremarkable. No pneumothorax. Heart: No pneumomediastinum. Mediastinum: Unremarkable. Bones/joints: No definite fracture. Tubes, lines and devices: NG tube in the stomach. IMPRESSION: NG tube in the stomach.
[2018-09-28 05:31] LABS: HCT 38.7 % (34.0-46.0); HGB 12.2 gm/dL (11.4-16.0); Hypochromasia Moderate; MCH 29.1 pg (25.0-35.0); MCHC 31.5 g/dL (31.0-37.0); MCV 92.2 fL (80.0-100.0); Mean Platelet Volume 8.8; Platelet Count 203 k/uL (150-450); RBC 4.19 m/uL (3.80-5.40); RDW 14.8 % (11.5-15.5); WBC 30.3 k/uL (3.8-10.6)
[2018-09-28 05:45] LABS: Calcium 7.4 mg/dL (8.4-10.2); Magnesium 1.8 mg/dL (1.6-2.3); Potassium 3.8 mmol/L (3.5-5.1)
[2018-09-28] MEDS ORDERED: metroNIDAZOLE-NS PMX 500 MG in SALINE 1 100ML.BAG IVPB SCH (06:00)
[2018-09-28 06:23] LABS: Band Neutrophils % 3 %; Lymphocytes # (M) 1.21 k/uL (1.0-4.8); Monocytes # (M) 1.82 k/uL (0-1.0); Myelocytes # (M) 1.52 k/uL (0); Myelocytes % 5 %; Neutrophils % (M) 83 %; Nucleated Red Blood Cells 0 /100 WBC (0-0); Total Cells Counted 200
[2018-09-28] MEDS: metroNIDAZOLE-NS PMX 500 MG in SALINE 1 100ML.BAG IVPB SCH ×3 (06:28→22:08)
[2018-09-28] MEDS: DEXTROSE 5% IN WATER 1,000 ML with SODIUM BICARB (1 MEQ/ML) 150 ML IV SCH ×2 (06:57→23:31)
[2018-09-28] MEDS: IPRATROPIUM-ALBUTEROL 3 ML NEB INHALATION SCH ×2 (07:19→19:52)
--- NOTE | 2018-09-28 07:22 | ECHOF ---
Referral Reason:hypotension MEASUREMENTS -------- HEIGHT: 152.4 cm WEIGHT: 83.0 kg BP: 85/39 RVIDd: 3.2 cm (< 3.3) IVSd: 1.1 cm (0.6 - 1.1) LVIDd: 4.1 cm (3.9 - 5.3) LVPWd: 1.4 cm (0.6 - 1.1) IVSs: 1.5 cm LVIDs: 3.2 cm LVPWs: 1.4 cm LAESV Index (A-L): 13.91 ml/m Ao Diam: 3.1 cm (2.0 - 3.7) AV Cusp: 1.8 cm (1.5 - 2.6) LA Diam: 3.6 cm (2.7 - 3.8) MV EXCURSION: 13.666 mm (> 18.000) MV EF SLOPE: 85 mm/s (70 - 150) EPSS: 3.3 cm RAP: 5.00 mmHg RVSP: 29.32 mmHg FINDINGS -------- Atrial fibrillation. This was a technically difficult study with suboptimal views. The left ventricular size is normal. There is mild concentric left ventricular hypertrophy. Overa ll left ventricular systolic function is normal with, an EF between 55 - 60 %. Left ventricular devante limg pressure cannot be estimated due to Atrial fibrillation. The right ventricle is normal in size. Normal LA size by volume 22+/-6 ml/m2. The right atrial size is normal. Interatrial and interventricular septum intact. There is mild aortic valve sclerosis. Trace to mild aortic regurgitation. There is no evidence of aortic stenosis. Mild mitral annular calcification present. [id number] mitral regurgitation is present. Mild tricuspid regurgitation present. There is no evidence of pulmonary hypertension. The right v entricular systolic pressure, as measured by Doppler, is 29.32mmHg. The pulmonic valve was not well visualized. There is no pulmonic regurgitation present. The aortic root size is normal. IVC Not well visulized. There is no pericardial effusion. CONCLUSIONS -------- 1. Atrial fibrillation. 2. This was a technically difficult study with suboptimal views. 3. The left ventricular size is normal. 4. There is mild concentric left ventricular hypertrophy. 5. Overall left ventricular systolic function is normal with, an EF between 55 - 60 %. 6. Left ventricular fillimg pressure cannot be estimated due to Atrial fibrillation. 7. The right ventricle is normal in size. 8. Normal LA size by volume 22+/-6 ml/m2. 9. There is mild aortic valve sclerosis. 10. Trace to mild aortic regurgitation. 11. Mild mitral annular calcification present. 12. [id number] mitral regurgitation is present. 13. Mild tricuspid regurgitation present. 14. There is no evidence of pulmonary hypertension. 15. The pulmonic valve was not well visualized. 16. The aortic root size is normal. 17. IVC Not well visulized. 18. There is no pericardial effusion. SLITTING MACHINE OPERATOR: Uma Bruce RDCS
--- NOTE | 2018-09-28 07:24 | XR ---
EXAMINATION TYPE: XR chest 1V portable DATE OF EXAM: 09/28/2018 COMPARISON: 09/27/2018 HISTORY: Shortness of breath TECHNIQUE: Single frontal view of the chest is obtained. FINDINGS: Bilateral subsegmental consolidation and effusion. Reduced inspiration. NG tube in the fun dus of the stomach. No overt failure. IMPRESSION: Bilateral lower lobe infiltrate and small effusion.
--- NOTE | 2018-09-28 07:38 | XR ---
EXAMINATION TYPE: XR KUB portable DATE OF EXAM: 09/28/2018 COMPARISON: 09/27/2018 HISTORY: Constipation TECHNIQUE: 1 views submitted FINDINGS: There is marked distention: Distal sigmoid colon. NG tube noted. Hypertrophic and degenerat eber changes spine. Contrast within the colon noted. No air is seen within the rectum. Arthropathy of the hips and degenerative change of the spine. IMPRESSION: Marked distention of the colon to the level of the sigmoid colon stable measuring a maxim al thickness of 9 cm. Distal colonic obstruction in the differential diagnosis. Colonic ileus also a consideration.
[2018-09-28] MEDS: NOREPINEPHRINE 4 MG in SODIUM CHLORIDE 0.9% 250 ML IV SCH ×4 (07:41→23:31)
[2018-09-28] MEDS: HEPARIN SODIUM,PORCINE 5,000 UNIT/ML 1 ML VIAL SQ SCH ×2 (08:17→22:09)
[2018-09-28] MEDS: SODIUM BICARBONATE TAB 650 MG TAB PO SCH ×3 (08:17→22:09)
[2018-09-28] MEDS: FAMOTIDINE 20 MG TAB PO SCH (08:17)
[2018-09-28] MEDS: METOPROLOL TARTRATE 12.5 MG TAB PO SCH ×2 (08:17→22:09)
[2018-09-28] MEDS: CHOLECALCIFEROL 1,000 UNIT TAB PO SCH (08:17)
[2018-09-28] MEDS: PANTOPRAZOLE 40 MG TABLET PO SCH (08:17)
--- NOTE | 2018-09-28 09:18 | P.PN ---
Subjective Progress Note Date: 09/28/18 CHIEF COMPLAINT: Abdominal pain HISTORY OF PRESENT ILLNESS: The patient is a 82 year old female who comes in with bilateral upper abdominal pain and diarrhea prior to admission. Patient had been transferred from the floor to the ICU for persistent hypotension currently on pressors. WBC now up to over 30,000. No stools since being in the ICU. She denies any passage of flatus. GI had ordered nasogastric tube and more films. Multiple films of the abdomen has been obtained since her clinical change. Her main concern is right upper quadrant abdominal pain, "I feel zaps." No diffuse abdominal pain. She is afebrile. She denies any diffuse abdominal pain. She is on 18 mcg Levophed. PHYSICAL EXAM: VITALS: Reviewed CONSTITUTIONAL: Well developed and in no acute distress. EYES: Conjuctivae without sclera icterus. Pupils are equally round and reactive to light. Extraocular movements grossly intact. HEAD, EARS, NOSE, THROAT: Dry buccal mucosa. Head is atraumatic, normocephalic. Hears conversational speech. No nasal drainage. Good dentition. NECK: Supple. No thyroidomegaly. RESPIRATORY: Non-labored respirations and equal bilateral excursions. No gross wheezes. CARDIOVASCULAR: Regular rate and rhythm. Extremities without moderate edema. Palpable 2+ radial pulses. ABDOMEN: No peritonitis on exam. Soft. Mildy distended. Tender at right upper quadrant. LYMPH: No neck lymphadenopathy. No axillary lymphadenopathy. MUSCULOSKELETAL: Nail and fingers with good capillary refill. SKIN: Warm and well perfused with good skin turgor. NEUROLOGIC: Cranial nerves I through XII grossly intact. Sensation upper and extremities intact. No focal or lateralizing signs. PSYCH: Appropriate affect. Alert and oriented to person, place and time. Displays appropriate insight. CLINCAL LABS: Reviewed. WBC elevated from over 20,000+ to 30,000+ RADIOLOGY: Report reviewed. Radiology report also confirms ileus with possible colitis. IMAGING: Independently reviewed. CT of the abdomen/pelvis personally reviewed with diffuse distention of the colon with thickening at the sigmoid. No free air. A lesion cannot be excluded as this is my personal interpretation. AXR: Repeat AXR today personally reviewed, no features of thumb printing or colitis or toxic megacolon. ASSESSMENT: 1. Abnormal CT scan for colonic ileus 2. Diarrhea with colitis 3. Leukocytosis 4. Acute kidney injury. 5. Sepsis PLAN: 1. Recommend US of gallbladder for right upper quadrant abdominal pain. 2. Possible lesion along sigmoidrectal junction will need direct visualization with scope. 3. May benefit from decompressive colonoscopy as well. 4. Overall, patient very high risk for perioperative and operative intervention with multiple co-morbidities for surgical intervention which was discussed with patient and nurse. 5. Resuscitation in the meantime in the ICU as she is on pressors. 6. Above care plan and coordination of care discussed with business services sales representative, anesthesiologist salt washer harvesting station, and precision structural metal fitter for 6:30 am decompressive colonoscopy. Critical care time: 37 minutes ADDENDUM: I personally spoke to her daughter Christine on the phone and gave her an update that her mother is in the ICU. Our plan is to resuscitate her with fluids. Since her colon is moderately dilated, plan is to decompress the colon, place a rectal tube, and do biopsies at any suspicion lesion that may be causing her blockage. She was agreeable with the plan including patient. STUDIES: US of gallbladder personally reviewed with gallstones and gallbladder thickened over 0.2 mm REPORTS: Demonstrates no pericholecystic fluid Objective - Vital Signs Vital signs: Vital Signs Temp 98.4 F 09/28/18 00:00 Pulse 93 09/28/18 07:31 Resp 19 09/28/18 07:00 BP 101/37 09/28/18 07:00 Pulse Ox 95 09/28/18 07:00 Intake & Output 09/27/18 09/28/18 09/28/18 18:59 06:59 18:59 Intake Total 415 2900 10.557 Output Total 25 145 Balance 390 2755 10.557 Weight 87.5 kg Intake: IV 75 900 Dextrose 5% in Water 1, 75 900 000 ml @ 75 mls/hr IV . [id number] TAZ with Sodium Bicarb (1 Meq/ml) 150 ml Rx#:[id number] Intake, IV Titration 1999 10.557 Amount Norepinephrine 4 mg In 10.557 Sodium Chloride 0.9% 250 ml @ 0.05 MCG/KG/MIN 16. 669 mls/hr IV .[id number] TAZ Rx#:[id number] Sodium Chloride 0.9% 1, 1999 000 ml @ 999 mls/hr IV . Q1H1M ONE Rx#:[id number] Oral 340 Output: Urine 25 145 Other: Voiding Method Indwelling Catheter Indwelling Catheter # Voids 1 - Labs CBC & Chem 7: 09/28/18 05:01 09/28/18 05:01 Labs: Abnormal Lab Results - Last 24 Hours (Table) 09/27/18 09/28/18 09/28/18 Range/Units 18:53 05:01 05:01 WBC 30.3 H (3.8-10.6) k/uL Neutrophils # (Manual) 26.00 H (1.3-7.7) k/uL Monocytes # (Manual) 1.82 H (0-1.0) k/uL Myelocytes # (Manual) 1.52 H (0) k/uL ABG pH 7.27 L (7.35-7.45) ABG HCO3 16 L (21-25) mmol/L ABG Total CO2 17 L (19-24) mmol/L ABG O2 Saturation 97.8 H (94-97) % Sodium 133 L (137-145) mmol/L Carbon Dioxide 16 L (22-30) mmol/L BUN 67 H (7-17) mg/dL Creatinine 3.10 H (0.52-1.04) mg/dL Calcium 7.4 L (8.4-10.2) mg/dL Microbiology - Last 24 Hours (Table) 09/23/18 14:20 Blood Culture - Preliminary Blood No Growth after 96 hours Assessment and Plan (1) Ileus Current Visit: Yes Status: Acute Code(s): K56.7 - ILEUS, UNSPECIFIED SNOM ED Code(s): 597673078 (2) Abnormal CT of the abdomen Current Visit: Yes Status: Acute Code(s): R93.5 - ABN FINDINGS ON DX IMAGING OF ABD REGIONS, INC RETROPERITON SNOMED Code(s): 29843513745629359 (3) Acute renal failure (ARF) Current Visit: Yes Status: Acute Code(s): N17.9 - ACUTE KIDNEY FAILURE, UNSPECIFIED SNOMED Code(s): 25460758 (4) Leukocytosis Current Visit: Yes Status: Acute Code(s): D72.829 - ELEVATED WHITE BLOOD CELL COUNT, UNSPECIFIED SNOMED Code(s): 147006368 (5) Colitis Current Visit: Yes Status: Acute Code(s): K52.9 - NONINFECTIVE GASTROENTERITIS AND COLITIS, UNSPECIFIED SNOMED Code(s): 72439591
[2018-09-28] MEDS: FAMOTIDINE 20 MG/2 ML VIAL IV SCH (09:27)
[2018-09-28] MEDS: PANTOPRAZOLE 40 MG/10 ML VIAL IVP SCH (09:27)
[2018-09-28] MEDS ORDERED: SODIUM CHLORIDE 0.9% 1,000 ML IV ONE ×3 (10:15→15:45)
[2018-09-28 10:31] LABS: Amylase <30 U/L (30-110); Lipase 41 U/L (23-300)
--- NOTE | 2018-09-28 11:19 | XR ---
EXAMINATION TYPE: XR chest 1V confirm line [facility] DATE OF EXAM: 09/28/2018 COMPARISON: 09/28/2018 HISTORY: Central line placement TECHNIQUE: Single frontal view of the chest is obtained. FINDINGS: Left-sided central line with the tip overlying the right atrium and no pneumothorax. Later al consolidation and small effusions noted. NG tube stable. No overt failure. Arthropathy shoulders. Prominent bowel loops in the abdomen are noted. IMPRESSION: 1. Central line with the tip overlying the right atrium and no pneumothorax. 2. Stable bilateral infiltrate. 3. A dilated bowel loops in the abdomen. Correlate clinically.
--- NOTE | 2018-09-28 11:21 | US ---
EXAMINATION TYPE: US gallbladder DATE OF EXAM: 09/28/2018 COMPARISON: CT CLINICAL HISTORY: Right upper quadrant pain. Pain EXAM MEASUREMENTS: Liver Length: 13.6 cm Gallbladder Wall: 0.3 cm CBD: 0.4 cm Right Kidney: 9.3 x 4.3 x 4.1 cm Very limited scan, pt in ICU, immobile, difficult breathing, very gassy Pancreas: Obscured by bowel gas Liver: Majority obscured by overlying bowel gas, Limited visualization shows no abnormality Gallbladder: Possible small stones at neck, slightly distended Evidence for sonographic Bonilla's sign: No CBD: wnl Right Kidney: Cyst upper pole as visualized on recent US= 1.8 x 1.6 x 1.5 cm Small amount of ascites and right pleural effusion visualized IMPRESSION: 1. Limited exam demonstrates small gallstones. No gallbladder wall thickening or biliary dilation. 2. Simple right renal cyst. 3. Small amounts of ascites and right pleural effusion incidentally noted.
[2018-09-28] MEDS ORDERED: ACETAMINOPHEN IV (For NPO) 1,000 MG in EMPTY BAG 1 BAG IVPB SCH (12:00)
--- NOTE | 2018-09-28 12:34 | P.CNPUL ---
History of Present Illness Consult date: 09/28/18 Chief complaint: Abdominal distention, sepsis History of present illness: This 82-year-old female patient got transferred to the ICU yesterday due to concern of sepsis, hypotension/colitis. The patient was moved to the ICU. The patient was running a lower blood pressure. The patient was given IV fluid bolus and the patient was started on broad-spectrum antibiotics. Lactic acid level was checked and was nonelevated. Film of the abdomen was done and there was no evidence of any free air in the abdomen. The patient however was developing low urine output and an acute kidney injury in the creatinine was up to 3.04. Urine output has also dropped. Based on that, the patient got transferred to the ICU. Blood gases from yesterday showed a pH of 7.27 with a pCO2 of 35 and a pO2 of 95. Note that this patient was initially admitted to the hospital because of abdominal pain. Her white cell count gradually came up to 30,000. She denied passing any flatus. Multiple symptoms of the abdomen were obtained and there is large bowel distention and the large well was markedly distended at the level of the colon and level of sigmoid up to 9 cm. There was also the possibility of distal colonic obstruction. The CAT scan of the abdomen that was done at time of admission on 09/26/2018 showed also dilated large bowel consistent with possible ileus versus bowel obstruction. There is also wall thickening of the sigmoid colon. The patient is currently on accommodation Zosyn and vancomycin and Flagyl. General surgeries on the case. I do length discussion with Dr. Aguilar and the patient will be having a colonoscopy to rule out any anatomic obstruction. The patient is currently on a bicarb infusion the rate of 75 mL an hour. The patient is on pressors and levo fed is running at 18 g per minute. She is awake and alert. Triple lumen catheter was inserted. Artline catheter was inserted for hemodynamic monitoring. Also an ultrasound the gallbladder is in progress to rule out any gallbladder pathology contributing to her presentation. Review of Systems Constitutional: Reports fatigue, Reports poor appetite, Reports weakness, Reports weight loss Eyes: denies as per HPI, denies blurred vision, denies bulging eye, denies decreased vision, denies diplopia, denies discharge, denies dry eye, denies irritation, denies itching, denies pain, denies photophobia, denies loss of peripheral vision, denies loss of vision, denies tunnel vision/blind spots Ears: deny: decreased hearing, ear discharge, earache, tinnitus Ears, nose, mouth and throat: Denies headache, Denies sore throat Cardiovascular: Reports as per HPI Respiratory: Reports as per HPI Gastrointestinal: Reports as per HPI, Reports abdominal pain, Reports change in bowel habits, Reports loss of appetite, Reports nausea Genitourinary: Reports as per HPI Menstruation: Reports as per HPI Musculoskeletal: Reports as per HPI Musculoskeletal: absent: ankle pain, ankle stiffness, ankle swelling Integumentary: Reports as per HPI Neurological: Reports as per HPI Psychiatric: Reports as per HPI Endocrine: Reports as per HPI, Reports increase in ring/shoe/hat size Allergic/Immunologic: Reports as per HPI Past Medical History Past Medical History: Heart Failure, Hypertension Additional Past Medical History / Comment(s): Coronary artery disease with previous coronary stent, Hypertension, history of ovarian tumor removed in 2004, hypothyroidism and the patient had thyroidectomy, renal cysts, frequent UTIs, cataracts of the eyes, hyperlipidemia., head cyst removed in 2000 History of Any Multi-Drug Resistant Organisms: None Reported Past Surgical History: Heart Catheterization, Heart Catheterization With Stent, Hernia Repair, Hysterectomy Additional Past Surgical History / Comment(s): left shoulder surgery, peripheral angiography Past Anesthesia/Blood Transfusion Reactions: No Reported Reaction Date of Last Stent Placement:: 0 Past Psychological History: No Psychological Hx Reported Smoking Status: Never smoker Past Alcohol Use History: None Reported Past Drug Use History: None Reported Medications and Allergies Home Medications Medication Instructions Recorded Confirmed Type Cholecalciferol [Vitamin D3 (25 5,000 unit PO Q48H 09/11/18 09/23/18 History Mcg = 1000 Iu)] Famotidine [Pepcid] 20 mg PO DAILY 09/11/18 09/23/18 History Ferrous Sulfate [Feosol] 325 mg PO DAILY 09/11/18 09/23/18 History Levothyroxine Sodium [Synthroid] 75 mcg PO DAILY 09/11/18 09/23/18 History Metoprolol Tartrate [Lopressor] 25 mg PO HS 09/11/18 09/23/18 History Metoprolol Tartrate [Lopressor] 50 mg PO DAILY 09/11/18 09/23/18 History Olmesartan/Hydrochlorothiazide 1 tab PO DAILY 09/11/18 09/23/18 History [Benicar Hct 20-12.5 mg Tablet] Simvastatin 40 mg PO HS 09/11/18 09/23/18 History Allergies Allergy/AdvReac Type Severity Reaction Status Date / Time fexofenadine [From Mila] Allergy Unknown Verified 09/23/18 09:14 Physical Exam Vitals: Vital Signs Temp Pulse Pulse Resp BP BP Pulse Ox 09/28/18 07:31 93 09/28/18 07:20 89 09/28/18 07:00 91 19 101/37 95 09/28/18 06:30 96 17 95/41 95 09/28/18 06:00 95 17 98/44 94 L 09/28/18 05:30 100 15 95/44 94 L 09/28/18 05:00 92 24 91/42 94 L 09/28/18 04:30 78 20 80/57 95 09/28/18 04:00 96 28 H 88/55 95 09/28/18 03:30 79 16 83/46 96 09/28/18 03:00 93 24 106/51 95 09/28/18 02:30 95 19 93/42 95 09/28/18 02:00 79 20 85/54 96 09/28/18 01:30 88 19 93/42 95 09/28/18 01:00 88 13 88/50 84 L 09/28/18 00:30 89 21 85/43 94 L 09/28/18 00:00 98.4 F 93 27 H 95/56 94 L 09/27/18 23:30 86 20 97/56 94 L 09/27/18 23:22 102 H 29 H 97/56 95 09/27/18 23:00 118 H 27 H 91/63 95 09/27/18 22:30 124 H 27 H 111/50 95 09/27/18 22:00 105 H 29 H 124/105 96 09/27/18 21:30 104 H 23 97/44 95 09/27/18 21:00 101 H 24 97/44 95 09/27/18 20:30 95 25 H 87/54 97 09/27/18 20:00 98.4 F 112 H 19 104/43 92 L 09/27/18 19:30 101 H 15 100/47 96 09/27/18 19:17 98 97 09/27/18 19:00 105 H 15 79/54 96 09/27/18 18:30 111 H 16 105/40 96 09/27/18 18:00 116 H 22 109/80 96 09/27/18 17:30 98.5 F 101 H 16 104/46 97 09/27/18 17:17 99 18 98 09/27/18 15:08 97.7 F 77 18 85/39 98 Intake and Output 09/27/18 09/28/18 09/28/18 22:59 06:59 14:59 Intake Total 2475 600 1279.229 Output Total 50 120 260 Balance 2425 480 1019.229 Intake: IV 084 386 4433 Dextrose 5% in Water 1, 375 600 225 000 ml @ 75 mls/hr IV . [id number] TAZ with Sodium Bicarb (1 Meq/ml) 150 ml Rx#:[id number] Sodium Chloride 0.9% 1, 999 000 ml @ 999 mls/hr IV . Q1H1M ONE Rx#:[id number] Intake, IV Titration 2000 55.229 Amount Norepinephrine 4 mg In 55.229 Sodium Chloride 0.9% 250 ml @ 0.05 MCG/KG/MIN 16. 669 mls/hr IV .[id number] TAZ Rx#:[id number] Sodium Chloride 0.9% 1, 2000 000 ml @ 999 mls/hr IV . Q1H1M ONE Rx#:[id number] Oral 100 Output: Gastric Drainage 150 Urine 50 120 110 Other: Voiding Method Indwelling Catheter Indwelling Catheter Indwelling Catheter Weight 87.5 kg CONSTITUTIONAL: Well developed and in no acute distress. EYES: Conjuctivae without sclera icterus. Pupils are equally round and reactive to light. Extraocular movements grossly intact. HEAD, EARS, NOSE, THROAT: Moist buccal mucosa. Head is atraumatic, normocephalic. Hears conversational speech. No nasal drainage. Good dentition. NECK: Supple. No JV distention. No thyroidomegaly. A triple lumen cath was inserted a left subclavian RESPIRATORY: Non-labored respirations and equal bilateral excursions. No gross wheezes. CARDIOVASCULAR: Regular rate and rhythm. Extremities without moderate edema. Palpable 2+ radial pulses. ABDOMEN: Soft, no peritonitis. Mild tenderness at left upper quadrant. Well healed lower midline incision. LYMPH: No neck lymphadenopathy. No axillary lymphadenopathy. MUSCULOSKELETAL: Gait within normal limits. Range of motion bilateral upper extremities within normal limits. Nail and fingers with good capillary refill. SKIN: Warm and well perfused with good skin turgor. Examination of the extremities revealed easily palpable radial, femoral and pedal pulses. There was no cyanosis, clubbing or edema.the patient has a Artline catheter in the right upper extremity NEUROLOGIC: Cranial nerves I through XII grossly intact. Sensation upper and extremities intact. No focal or lateralizing signs. PSYCH: Appropriate affect. Alert and oriented to person, place and time. Displays appropriate insight. Results - Laboratory Findings CBC and BMP: 09/28/18 05:01 09/28/18 05:01 ABG ABG pH 7.27 (7.35-7.45) L 09/27/18 18:53 ABG pCO2 35 mmHg (35-45) 09/27/18 18:53 ABG pO2 95 mmHg (83-108) 09/27/18 18:53 ABG O2 Saturation 97.8 % (94-97) H 09/27/18 18:53 Abnormal lab findings: Abnormal Labs 09/23/18 09/23/18 09/23/18 09:07 09:07 10:26 WBC 11.9 H Plt Count 140 L Neutrophils # 9.7 H Neutrophils # (Manual) Lymphocytes # 0.6 L Monocytes # 1.3 H Monocytes # (Manual) Myelocytes # (Manual) ABG pH ABG HCO3 ABG Total CO2 ABG O2 Saturation Sodium Carbon Dioxide BUN 53 H Creatinine 2.11 H Glucose POC Glucose (mg/dL) Calcium Magnesium Total Protein 5.9 L Albumin 3.3 L Amylase <30 L Lipase <10 L Vitamin B12 Urine Appearance Cloudy H Urine Protein Trace H Urine Ketones 1+ H Urine Blood Trace H Urine Bilirubin 1+ H Ur Leukocyte Esterase Large H Urine WBC 20 H Urine Bacteria Rare H Hyaline Casts 28 H Urine Mucus Rare H 09/24/18 09/25/18 09/25/18 16:59 06:27 06:27 WBC 11.1 H Plt Count 134 L Neutrophils # 9.3 H Neutrophils # (Manual) Lymphocytes # 0.4 L Monocytes # Monocytes # (Manual) Myelocytes # (Manual) ABG pH ABG HCO3 ABG Total CO2 ABG O2 Saturation Sodium 136 L Carbon Dioxide 20 L BUN 48 H Creatinine 1.61 H Glucose POC Glucose (mg/dL) Calcium 7.7 L Magnesium 1.4 L Total Protein Albumin Amylase Lipase Vitamin B12 Urine Appearance Urine Protein Urine Ketones Urine Blood Urine Bilirubin Ur Leukocyte Esterase Urine WBC Urine Bacteria Hyaline Casts Urine Mucus 09/25/18 09/26/18 09/26/18 17:44 06:41 06:41 WBC Plt Count Neutrophils # Neutrophils # (Manual) Lymphocytes # Monocytes # Monocytes # (Manual) Myelocytes # (Manual) ABG pH ABG HCO3 ABG Total CO2 ABG O2 Saturation Sodium 136 L Carbon Dioxide 17 L BUN 54 H Creatinine 2.39 H Glucose 111 H POC Glucose (mg/dL) 132 H Calcium 8.3 L Magnesium Total Protein Albumin Amylase Lipase Vitamin B12 1634.0 H Urine Appearance Urine Protein Urine Ketones Urine Blood Urine Bilirubin Ur Leukocyte Esterase Urine WBC Urine Bacteria Hyaline Casts Urine Mucus 09/27/18 09/27/18 09/27/18 06:43 06:43 18:53 WBC 23.1 H Plt Count Neutrophils # Neutrophils # (Manual) Lymphocytes # Monocytes # Monocytes # (Manual) Myelocytes # (Manual) ABG pH 7.27 L ABG HCO3 16 L ABG Total CO2 17 L ABG O2 Saturation 97.8 H Sodium 135 L Carbon Dioxide 16 L BUN 64 H Creatinine 3.04 H Glucose 73 L POC Glucose (mg/dL) Calcium 8.1 L Magnesium Total Protein Albumin Amylase Lipase Vitamin B12 Urine Appearance Urine Protein Urine Ketones Urine Blood Urine Bilirubin Ur Leukocyte Esterase Urine WBC Urine Bacteria Hyaline Casts Urine Mucus 09/28/18 09/28/18 09/28/18 05:01 05:01 05:01 WBC 30.3 H Plt Count Neutrophils # Neutrophils # (Manual) 26.00 H Lymphocytes # Monocytes # Monocytes # (Manual) 1.82 H Myelocytes # (Manual) 1.52 H ABG pH ABG HCO3 ABG Total CO2 ABG O2 Saturation Sodium 133 L Carbon Dioxide 16 L BUN 67 H Creatinine 3.10 H Glucose POC Glucose (mg/dL) Calcium 7.4 L Magnesium Total Protein Albumin Amylase <30 L Lipase Vitamin B12 Urine Appearance Urine Protein Urine Ketones Urine Blood Urine Bilirubin Ur Leukocyte Esterase Urine WBC Urine Bacteria Hyaline Casts Urine Mucus - Diagnostic Findings Chest x-ray: image reviewed Assessment and Plan Plan: 1 hypotension, likely secondary to abdominal sepsis as the patient has significant limitation of the large bowel with possible translocation of bacteria causing hypotension and sepsis. Currently on a combination of IV fluids, antibiotics and pressors. Lactic acid level is low 2 dilatation of the large bowel, with possible ileus versus an anatomic obstruction of the distal colon , and colonoscopy will be indicated 3 leukocytosis secondary to above 4 hypotension secondary to above 5 acute kidney injury 6 questionable colitis versus bowel obstruction/anatomic obstruction 7 coronary artery disease previous coronary intervention stenting 8 preserved LV function based on the most recent echocardiogram 9 hypertension 10 hyperlipidemia 11 dilation of the goal bladder without evidence of cholecystitis and the patient has some small gallstones Plan Continue IV fluids. The patient is currently on a bicarb infusion. The patient has been well resuscitated. Continue pressors. Continue same antibiotic coverage. Gen. surgery evaluation. The patient may benefit from a chayito gnostic/decompensated colonoscopy. The patient will be set up for colonoscopy either today or tomorrow. This was discussed with general surgery. The patient will be kept nothing by mouth for now. Continue fluids. Continue pressors. Continue antibiotics. Monitor lactic acid level. White cell count is elevated and this will be monitored. Monitor renal function. Condition is critical. Family is aware. We'll continue to follow.
[2018-09-28] MEDS ORDERED: LEVOFLOXACIN 500MG-D5W PMX 500 MG in DEXTROSE/WATER 1 100ML.BAG IVPB SCH (15:00)
--- NOTE | 2018-09-28 15:23 | PN ---
PROGRESS NOTE The patient is seen for followup for acute kidney injury. She was transferred to ICU yesterday secondary to persistent hypotension. This morning, patient was started on Levophed. She has received multiple IV fluid boluses. Urine output remained quite low overnight. Currently, patient has an indwelling Clemente catheter. Urine output has picked up to about 45-60 mL/hour. The patient received a dose of Lasix last night. She is complaining of weakness. All cultures remain negative thus far. The patient is maintained on IV bicarb at 75 mL an hour. PHYSICAL EXAMINATION: This morning, blood pressure was 115/48, heart rate of 110 per minute. Patient is afebrile. Examination of the heart S1, S2. Examination of the lungs, bilateral breath sounds are heard. Abdomen is soft, nontender. Examination of lower extremities shows no significant edema. CONSULTING HR PROFESSIONAL exam is grossly intact. LAB: Show hemoglobin 12.2, white cell count 30.3. Sodium 133, potassium 3.8, CO2 16, BUN 67, serum creatinine 3.1. ASSESSMENT: 1. Acute kidney injury secondary to hypotension, hypoperfusion, nonoliguric, with some improvement in urine output with improving perfusion pressures. Patient is maintained on Levophed, which is currently at 17 mcg/minute. I will continue with the bicarb drip. Continue to avoid nephrotoxic agents. Repeat labs in a.m. 2. Hypotension from sepsis, most likely abdominal source. CT scan had shown evidence of colitis. The patient also has ileus for which she is maintained on a NG tube. 3. Non-gap metabolic acidosis secondary to renal failure, maintained on IV bicarb, which we will continue. PLAN: Continue IV bicarb. Continue empiric antibiotics. Pressors as needed. Repeat labs in a.m. MMODL / IJN: [id number] /
[2018-09-28 15:32] LABS: INR 1.1 (<1.2); Prothrombin Time 11.3 sec (9.0-12.0)
[2018-09-28 16:23] LABS: HCT 38.2 % (34.0-46.0); HGB 12.4 gm/dL (11.4-16.0); Hypochromasia Slight; MCH 29.6 pg (25.0-35.0); MCHC 32.4 g/dL (31.0-37.0); MCV 91.6 fL (80.0-100.0); Mean Platelet Volume 8.6; Platelet Count 241 k/uL (150-450); RBC 4.17 m/uL (3.80-5.40); WBC 42.9 k/uL (3.8-10.6)
[2018-09-28] MEDS: ALPRAZolam 0.25 MG TAB PO PRN (16:34)
[2018-09-28] MEDS ORDERED: ACETAMINOPHEN IV (For NPO) 1,000 MG in EMPTY BAG 1 BAG IVPB PRN (17:31)
--- NOTE | 2018-09-28 19:51 | P.PN ---
Subjective 82 y/o female comes in with abd pain, diarrhea. Shewas in [place]. She was started on iv fluids. Levaquin was started as well. Today the patient still complains of abd pain. She says the diarrhea is controlled now. She had a code stroke called yesterday. Looks like she was having seizure. Rhianna was consulted. 09/27/2018 Patient was still complaining of abdominal pain She said that she still nauseous. Her pressures were low this morning 2018 Pt transferred to ICU yesterday for persistant hypotension She was started on zosyn and oral vanco. Levaquin was dcec, flagyl was continued Today she looks better than yesterday Says still has abd pain, nausea better, no vomiting Didnt have a BM yet, not passing gases. Objective - Vital Signs Vital signs: Vital Signs Temp 97 F L 09/28/18 16:00 Pulse 73 09/28/18 19:00 Resp 18 09/28/18 19:00 BP 89/45 09/28/18 19:00 Pulse Ox 98 09/28/18 19:00 Intake & Output 09/28/18 09/28/18 09/29/18 06:59 18:59 06:59 Intake Total 2900 4105.059 75 Output Total 145 960 30 Balance 2755 3145.059 45 Weight 87.5 kg Intake: IV 900 3825 75 Dextrose 5% in Water 1, 900 825 75 000 ml @ 75 mls/hr IV . [id number] TAZ with Sodium Bicarb (1 Meq/ml) 150 ml Rx#:[id number] Sodium Chloride 0.9% 1, 3000 000 ml @ 999 mls/hr IV . Q1H1M ONE Rx#:[id number] Intake, IV Titration 1999 280.059 Amount Norepinephrine 4 mg In 280.059 Sodium Chloride 0.9% 250 ml @ 0.05 MCG/KG/MIN 16. 669 mls/hr IV .[id number] TAZ Rx#:[id number] Sodium Chloride 0.9% 1, 2000 000 ml @ 999 mls/hr IV . Q1H1M ONE Rx#:[id number] Output: Gastric Drainage 290 Urine 145 670 30 Other: Voiding Method Indwelling Catheter Indwelling Catheter ABP, PAP, CO, CI - Last Documented Arterial Blood Pressure 101/43 - Exam General appearance: alert, in no apparent distress HEENT : JONAS, no pallor , no icterus, no pain or discharge from ear or nose Neck exam: No JVD, no neck node, no thyroid exam. Respiratory exam: Normal breath sounds heard equally bilaterally, no abn sounds Cardiovascular Exam: S1, S2 positive. Peripheral pulses: 2+: Dorsalis Pedis (R), Dorsalis Pedis (L) GI/Abdominal exam: soft, tender, Bs feeble Extremities exam: no edema, pulses positive Neurological exam: Present: alert and oriented times 3, strenght 5/5 all ext, reflexes +2 positive all extremities. - Labs CBC & Chem 7: 09/28/18 16:00 09/28/18 05:01 Labs: Abnormal Lab Results - Last 24 Hours (Table) 09/27/18 09/28/18 09/28/18 Range/Units 18:53 05:01 05:01 WBC 30.3 H (3.8-10.6) k/uL Neutrophils # (Manual) 26.00 H (1.3-7.7) k/uL Monocytes # (Manual) 1.82 H (0-1.0) k/uL Myelocytes # (Manual) 1.52 H (0) k/uL ABG pH 7.27 L (7.35-7.45) ABG HCO3 16 L (21-25) mmol/L ABG Total CO2 17 L (19-24) mmol/L ABG O2 Saturation 97.8 H (94-97) % Sodium 133 L (137-145) mmol/L Carbon Dioxide 16 L (22-30) mmol/L BUN 67 H (7-17) mg/dL Creatinine 3.10 H (0.52-1.04) mg/dL Calcium 7.4 L (8.4-10.2) mg/dL Amylase (30-110) U/L 09/28/18 09/28/18 Range/Units 05:01 16:00 WBC 42.9 H (3.8-10.6) k/uL Neutrophils # (Manual) (1.3-7.7) k/uL Monocytes # (Manual) (0-1.0) k/uL Myelocytes # (Manual) (0) k/uL ABG pH (7.35-7.45) ABG HCO3 (21-25) mmol/L ABG Total CO2 (19-24) mmol/L ABG O2 Saturation (94-97) % Sodium (137-145) mmol/L Carbon Dioxide (22-30) mmol/L BUN (7-17) mg/dL Creatinine (0.52-1.04) mg/dL Calcium (8.4-10.2) mg/dL Amylase <30 L (30-110) U/L Microbiology - Last 24 Hours (Table) 09/23/18 14:20 Blood Culture - Preliminary Blood No Growth after 120 hours Assessment and Plan Assessment: - Hypotension - ABd pain secondary to colitis and Ileus - Colonic distension r/o distal colonic obstruction - [place] - Hypovolumia - H/O recent UTI on antibitics - CAD - CHF - Plan: 09/26/2018 - Ct abd ordered today showed colitis and ileus - On levaquin already, will start flagyl and consult surgery to the family's insistance. - Cdiff assay pending - Continue gentle fluid hydration - Renal functions worse today. Will consult nephrology. - Continue rst of the medical care - Will f/u 09/27/2018 - Patient on will be continued on Levaquin and Flagyl - Patient blood pressures were low this morning. We'll give her 2 50 mL bolus. The patient blood pressure not improving patient will need to be transferred to ICU. - - Discussed with Dr. Perez as well - We'll continue rest of medications 09/28/2018 - Pt on levofed, pressure are stable. making urine now - Renal functions slightly improved - Will continue abx for now. - Surgery will do compressive colonoscopy in am - Discussed in detail the critical condition with the pt and family
--- NOTE | 2018-09-28 21:11 | P.PN ---
Subjective Progress Note Date: 09/28/18 Principal diagnosis: Colitis patient seen lying in bed, still reporting abdominal pain however reports nausea improved. Still no bowel movements or flatus. NG tube placed last night. Objective - Vital Signs Vital signs: Vital Signs Temp 98.4 F 09/28/18 00:00 Pulse 93 09/28/18 07:31 Resp 19 09/28/18 07:00 BP 101/37 09/28/18 07:00 Pulse Ox 95 09/28/18 07:00 Intake & Output 09/27/18 09/28/18 09/28/18 18:59 06:59 18:59 Intake Total 415 2900 10.557 Output Total 25 145 Balance 390 2755 10.557 Weight 87.5 kg Intake: IV 75 900 Dextrose 5% in Water 1, 75 900 000 ml @ 75 mls/hr IV . [id number] with Sodium Bicarb (1 Meq/ml) 150 ml Rx#:[id number] Intake, IV Titration 2000 10.557 Amount Norepinephrine 4 mg In 10.557 Sodium Chloride 0.9% 250 ml @ 0.05 MCG/KG/MIN 16. 669 mls/hr IV .[id number] TAZ Rx#:[id number] Sodium Chloride 0.9% 1, 2000 000 ml @ 999 mls/hr IV . Q1H1M ONE Rx#:[id number] Oral 340 Output: Urine 25 145 Other: Voiding Method Indwelling Catheter Indwelling Catheter # Voids 1 - Exam On physical examination, patient appears comfortable in no apparent distress. HEAD: Normocephalic, atraumatic. EYES: No scleral icterus. No conjunctival injection. MOUTH: No lesions, tongue midline. NECK: Trachea midline, no gross abnormalities. CHEST: decreased air entry bilaterally. HEART: S1S2. ABDOMEN: Soft, obese. Bowel sounds are hypoactive. No organomegaly. No guarding or rigidity. EXTREMITIES: Bilateral pedal edema. SKIN: No rashes, no jaundice. NEUROLOGIC: Alert and oriented x3. No focal deficits. - Labs CBC & Chem 7: 09/28/18 16:00 09/28/18 05:01 Labs: Abnormal Lab Results - Last 24 Hours (Table) 09/27/18 09/28/18 09/28/18 Range/Units 18:53 05:01 05:01 WBC 30.3 H (3.8-10.6) k/uL Neutrophils # (Manual) 26.00 H (1.3-7.7) k/uL Monocytes # (Manual) 1.82 H (0-1.0) k/uL Myelocytes # (Manual) 1.52 H (0) k/uL ABG pH 7.27 L (7.35-7.45) ABG HCO3 16 L (21-25) mmol/L ABG Total CO2 17 L (19-24) mmol/L ABG O2 Saturation 97.8 H (94-97) % Sodium 133 L (137-145) mmol/L Carbon Dioxide 16 L (22-30) mmol/L BUN 67 H (7-17) mg/dL Creatinine 3.10 H (0.52-1.04) mg/dL Calcium 7.4 L (8.4-10.2) mg/dL Microbiology - Last 24 Hours (Table) 09/23/18 14:20 Blood Culture - Preliminary Blood No Growth after 96 hours Assessment and Plan (1) Ileus Narrative/Plan: 82-year-old female with a multiple medical comorbidities who presented to the hospital with complaints of diarrhea and abdominal pain. She developed 5-6 loose bowel movements without blood daily after a course of Keflex urinary tract infection. The patient presented to the hospital for further evaluation and reports that since that time she has had no further bowel movements. With pain in her lower abdomen described as cramping in nature. However, since admission the patient states she has had no bowel movements and is currently reporting no flatus as well, with associated nausea and decreased oral intake. She had a computed tomography scan of the abdomen which showed dilated large bowel with thickened sigmoid colitis and mild ascites. An x-ray ordered subsequently showed increased air in the large bowel suggestive of ileus.unclear etiology, may be related to infection, electrolyte abnormalities or mass in the sigmoid with thickening noted and described as colitis or other etiology. Current Visit: Yes Status: Acute Code(s): K56.7 - ILEUS, UNSPECIFIED SNOMED Code(s): 372581772 (2) Nausea Current Visit: Yes Status: Acute Code(s): R11.0 - NAUSEA SNOMED Code(s): 960020362 (3) Colitis Current Visit: Yes Status: Acute Code(s): K52.9 - NONINFECTIVE GASTROENTERITIS AND COLITIS, UNSPECIFIED SNOMED Code(s): 57678139 Plan: Supportive care Nothing by mouth Continue to monitor CBC, CMP with aggressive replacement of electrolytes Appreciate recommendations from surgical service X-ray abdomen reviewed Surgery planning for decompressive endoscopy tomorrow, will defer to their management NG tube placement Continue broad antibiotic therapy Continue ICU management Thank you for allowing us to participate in the care of the patient we will co codi to follow, the GI service will standby please call us back with any questions or concerns
[2018-09-28] MEDS: ATORVASTATIN 20 MG TAB PO SCH (22:09)
--- NOTE | 2018-09-28 23:38 | PCN ---
PROCEDURE NOTE PROCEDURE PERFORMED: Insertion of triple-lumen catheter. TRIPLE LUMEN CATHETER PLACEMENT: Indication Hemodynamic monitoring/Intravenous access. A time-out was completed verifying correct patient, procedure, site, positioning, and implant(s) or special equipment if applicable. The patient was placed in a dependent position appropriate for triple lumen catheter placement based on the vein to be cannulated. The patient's left shoulder was prepped and draped in sterile fashion. 1% Lidocaine was used to anesthetize the surrounding skin area. A triple lumen 9F Cordis catheter was introduced into the subclavian vein using Seldinger technique. The catheter was threaded smoothly over the guide wire and appropriate blood return was obtained. Each lumen of the catheter was evacuated of air and flushed with sterile saline. The catheter was then sutured in place to the skin and a sterile dressing applied. Perfusion to the extremity distal to the point of catheter insertion was checked and found to be adequate. Site of insertion was the left subclavian vein. MMODL / IJN: [id number] /
--- NOTE | 2018-09-28 23:41 | PCN ---
PROCEDURE NOTE ARTERIAL LINE PLACEMENT: Indications: Hemodynamic monitoring. PREOP DIAGNOSIS: Sepsis. POSTOP DIAGNOSIS: Sepsis. A time-out was completed verifying correct patient, procedure, site, positioning, and implant(s) or special equipment if applicable. Avery's test was performed to ensure adequate perfusion. The patient's right wrist was prepped and draped in sterile fashion. 1% Lidocaine was used to anesthetize the area. An 18G Arrow arterial line was introduced into the radial artery. The catheter was threaded over the guide wire and the needle was removed with appropriate pulsatile blood return. Blood loss was minimal. The catheter was then sutured in place to the skin and a sterile dressing applied. Perfusion to the extremity distal to the point of catheter insertion was checked and found to be adequate. The patient tolerated the procedure well and there were no complications. MMODL / IJN: [id number] /
[2018-09-29] MEDS: CHERRY FLAVOR 60 ML BOTTLE PO SCH ×4 (00:19→18:43)
[2018-09-29] MEDS: VANCOMYCIN ORAL SOLUTION 250 MG/5 ML BOTTLE PO SCH ×4 (00:26→18:43)
[2018-09-29] MEDS: PIPERACILLIN-TAZOBACTAM 3.375 GM in SODIUM CHLORIDE 0.9% 100 ML IVPB SCH ×3 (00:26→21:02)
[2018-09-29] MEDS: NOREPINEPHRINE 4 MG in SODIUM CHLORIDE 0.9% 250 ML IV SCH ×2 (02:25→04:48)
[2018-09-29 05:16] LABS: HCT 42.6 % (34.0-46.0); HGB 13.3 gm/dL (11.4-16.0); Hypochromasia Marked; MCH 29.3 pg (25.0-35.0); MCHC 31.2 g/dL (31.0-37.0); Platelet Count 205 k/uL (150-450); RBC 4.53 m/uL (3.80-5.40); RDW 14.8 % (11.5-15.5); WBC 39.2 k/uL (3.8-10.6)
[2018-09-29 05:24] LABS: INR 1.2 (<1.2); Prothrombin Time 12.4 sec (9.0-12.0)
[2018-09-29 05:26] LABS: Potassium 3.2 mmol/L (3.5-5.1)
[2018-09-29 05:32] LABS: Calcium 6.5 mg/dL (8.4-10.2)
[2018-09-29 05:54] LABS: Band Neutrophils % 15 %; Lymphocytes # (M) 0.78 k/uL (1.0-4.8); Metamyelocytes # (M) 0.78 k/uL (0); Metamyelocytes % 2 %; Monocytes # (M) 1.96 k/uL (0-1.0); Myelocytes # (M) 0.39 k/uL (0); Myelocytes % 1 %; Neutrophils % (M) 76 %; Nucleated Red Blood Cells 0 /100 WBC (0-0); Total Cells Counted 200
[2018-09-29] MEDS ORDERED: PROPOFOL 10 MG/ML 20 ML VIAL IV ONE (06:33)
--- NOTE | 2018-09-29 06:38 | P.HPADDEND ---
H&P Addendum H&P Addendum Date: 09/29/18 Patient was resuscitated with additional central line and arterial line placed. Abdomen is soft. She denies any abdominal pain. We'll proceed cautiously with decompressive colonoscopy and placement of rectal tube. WBC count as high as 42,000 down to 39,000.
[2018-09-29] MEDS ORDERED: LACTATED RINGERS 1,000 ML IV ONE (06:45)
--- NOTE | 2018-09-29 07:15 | XR ---
EXAMINATION TYPE: XR chest 1V portable DATE OF EXAM: 09/29/2018 Comparison: 09/28/2018 Clinical History: 82-year-old female CHF Findings: Heart remains borderline enlarged. NG tube courses below the diaphragm. Left subclavian CVC tip in th e right atrium. Mild diffuse interstitial prominence persists. Increased right basilar opacity. Impression: 1. Continued mild pulmonary vascular congestion. 2. Increased right basilar opacity, likely small effusion with adjacent atelectasis and/or consolidat ion.
[2018-09-29] MEDS ORDERED: NA PHOS,M-B/NA PHOS,DI-BA 133 ML ENEMA RECTAL ONE (07:45)
[2018-09-29] MEDS: metroNIDAZOLE-NS PMX 500 MG in SALINE 1 100ML.BAG IVPB SCH ×3 (08:09→23:23)
--- NOTE | 2018-09-29 08:37 | P.PCN ---
Date of Procedure: 09/29/18 Description of Procedure: PREOPERATIVE DIAGNOSIS: Large bowel ileus Large bowel obstruction POSTOPERATIVE DIAGNOSIS: Large bowel ileus Large bowel obstruction Feculent impaction of sigmoid colon Diverticulosis without diverticulitis, sgimoid colon OPERATION: Flexible sigmoidoscopy to the sigmoid colon. Sigmoidoscopy with retrieval of foreign body/fecal impaction with Vu net Sigmoidoscopy with snare and retrieval of foreign body/fecal impaction SURGEON: Luba Ramirez MD. ANESTHESIA: MAC. INDICATIONS: The patient is a 82-year-old female who presents with abnormal computed tomography scan of large colonic ileus. Colonoscopy was offered for decompression of the large colon. Benefits and risks were described and informed consent was obtained. DESCRIPTION OF PROCEDURE: The patient was transferred from the ICU to the endoscopy suite. She had been brought into the operating room and laid in the left lateral decubitus position. After adequate intravenous sedation, the rectum was examined with 2% lidocaine jelly. External hemorrhoids were encountered. The rectal tone was loose. No les ions were palpated in the rectal vault. An Olympus pediatric colonoscope was advanced to 20 cm from the anal verge of a hard fecal impaction. Combination of Vu net including snare was used to disimpact the firm hard stool at 20 cm from the anal verge. Multiple passes with Vu net and snare were used to dislodge the insspisated colon. Moderate irrigation was also used to dislodge the fecal impaction. Success was made of allowing some air passage beyond the fecal impaction. No large colonic tumors were identified at the area of the concern except for diverticulosis. Given the size, hard texture of the retained fecal impaction, a rectal tube was not performed. The scope was passed to 20 cm from the anal verge. No evidence of polyps were identified. The colon was desufflated. The patient had tolerated the procedure well. Withdrawal time was over 6 minutes. FINDINGS: Aronchik preparation quality scale 4 (1-5) Fecal impaction, firm causing obstruction at sigmoid colon, 20 cm from the anal verge External prolapsed hemorrhoids, stage 4 Sigmoid diverticulosis at area of impaction No arteriovenous malformations. No adenomatous polyps. No focal colitis. RECOMMENDATIONS: We'll obtain abdominal x-ray. I personally contacted radiology for osmotic enema such as gastrograffin however no longer available at this institution. We'll use fleets enema to disimpact Alternatively, Isovue enema also discussed with radiologist Lastly, patient very high risk for surgical intervention such as laparotomy
[2018-09-29] MEDS: IPRATROPIUM-ALBUTEROL 3 ML NEB INHALATION SCH ×2 (08:57→21:09)
--- NOTE | 2018-09-29 09:55 | XR ---
EXAMINATION TYPE: XR abdomen 1V DATE OF EXAM: 09/29/2018 Comparison: 09/28/2018 Clinical History: 82-year-old female large bowel obstruction/fecal impaction Findings: Some retained oral contrast material seen within the cecum and ascending colon. Loops of colon are di lated up to 9.5 cm. NG tube is present. Supine imaging limited for assessment of free air. No signifi cant stool in the pelvis. No dilated small bowel loops. Impression: No significant stool burden to suggest fecal impaction. Stable dilated loops of colon measuring up to nearly 10 cm. Correlate for possible etiologies including severe colitis and toxic megacolon. Coloni c ischemia considered less likely given the long segment involvement. Correlate with lactic acid leve ls. Supine imaging limited for assessment of free air.
[2018-09-29] MEDS: MIDODRINE 5 MG TAB PO SCH ×3 (10:17→18:43)
[2018-09-29] MEDS: PANTOPRAZOLE 40 MG/10 ML VIAL IVP SCH (10:18)
[2018-09-29] MEDS: SODIUM BICARBONATE TAB 650 MG TAB PO SCH ×2 (10:18→21:02)
[2018-09-29] MEDS: HEPARIN SODIUM,PORCINE 5,000 UNIT/ML 1 ML VIAL SQ SCH ×2 (10:18→21:02)
[2018-09-29] MEDS: METOPROLOL TARTRATE 12.5 MG TAB PO SCH ×2 (10:18→21:02)
[2018-09-29] MEDS: FAMOTIDINE 20 MG/2 ML VIAL IV SCH (10:18)
--- NOTE | 2018-09-29 12:01 | P.PN ---
Subjective Progress Note Date: 09/29/18 Principal diagnosis: Abdominal distention, possible abdominal sepsis. This 82-year-old female patient got transferred to the ICU yesterday due to concern of sepsis, hypotension/colitis. The patient was moved to the ICU. The patient was running a lower blood pressure. The patient was given IV fluid bolus and the patient was started on broad-spectrum antibiotics. Lactic acid level was checked and was nonelevated. Film of the abdomen was done and there was no evidence of any free air in the abdomen. The patient however was developing low urine output and an acute kidney injury in the creatinine was up to 3.04. Urine output has also dropped. Based on that, the patient got transferred to the ICU. Blood gases from yesterday showed a pH of 7.27 with a pCO2 of 35 and a pO2 of 95. Note that this patient was initially admitted to the hospital because of abdominal pain. Her white cell count gradually came up to 30,000. She denied passing any flatus. Multiple symptoms of the abdomen were obtained and there is large bowel distention and the large well was markedly distended at the level of the colon and level of sigmoid up to 9 cm. There was also the possibility of distal colonic obstruction. The CAT scan of the abdomen that was done at time of admission on 09/26/2018 showed also dilated large bowel consistent with possible ileus versus bowel obstruction. There is also wall thickening of the sigmoid colon. The patient is currently on accommodation Zosyn and vancomycin and Flagyl. General surgeries on the case. I do length discussion with Dr. Aguilar and the patient will be having a colonoscopy to rule out any anatomic obstruction. The patient is currently on a bicarb infusion the rate of 75 mL an hour. The patient is on pressors and levo fed is running at 18 g per minute. She is awake and alert. Triple lumen catheter was inserted. Artline catheter was inserted for hemodynamic monitoring. Also an ultrasound the gallbladder is in progress to rule out any gallbladder pathology contributing to her presentation. Reevaluated today on 09/29/2018, patient remains in the ICU, remains on norepinephrine for low blood pressure, at 24 g. Minutes, is also on bicarb drip, continues to have abdominal distention, but not much abdominal pain or tenderness on physical examination. Abdominal films today revealed dilated loops of colon measuring up to nearly 10 cm, differential diagnoses includes colitis, toxic megacolon, colonic ischemia. Patient is scheduled to have an enema by general surgery on the case. Family is at bedside and updated on her condition. WBC count is on the rise 39.2 hemoglobin is 13.3 electrolytes are relatively normal except for low bicarb of 19 potassium of 3.2 BUN is 57 creatinine 2.50, improved compared to yesterday. Patient denies any shortness of breath, no chest pain, no nausea, no vomiting, and she has some vague abdominal discomfort. Objective - Vital Signs Vital signs: Vital Signs Temp 97.7 F 09/29/18 08:00 Pulse 111 H 09/29/18 10:00 Resp 33 H 09/29/18 10:00 BP 107/44 09/29/18 10:00 Pulse Ox 97 09/29/18 10:00 Intake & Output 09/28/18 09/29/18 09/29/18 18:59 06:59 18:59 Intake Total 4333.000 1842.554 Output Total 960 880 Balance 3373.000 962.554 Weight 89.9 kg Intake: IV 3825 1050 Dextrose 5% in Water 1, 825 900 000 ml @ 75 mls/hr IV . [id number] TAZ with Sodium Bicarb (1 Meq/ml) 150 ml Rx#:[id number] Sodium Chloride 0.9% 1, 3000 000 ml @ 999 mls/hr IV . Q1H1M ONE Rx#:[id number] Intake, IV Titration 508.000 792.554 Amount Norepinephrine 4 mg In 508.000 692.554 Sodium Chloride 0.9% 250 ml @ 0.05 MCG/KG/MIN 16. 669 mls/hr IV .[id number] TAZ Rx#:[id number] metroNIDAZOLE-NS PMX 500 100 mg In Saline 1 100ml.bag @ 100 mls/hr IVPB Q8H TAZ Rx#:[id number] Output: Gastric Drainage 290 Urine 670 880 Other: Voiding Method Indwelling Catheter Indwelling Catheter ABP, PAP, CO, CI - Last Documented Arterial Blood Pressure 101/49 - Exam General: Revealed 82-year-old female, very pleasant, in no distress. Head: Atraumatic, normocephalic. HEENT: PERRLA, EOMI, no neck masses, no JVD, no stridor, moist mucous membranes, left subclavian central line is noted. RESPIRATORY: Diminished breath sounds at the bases no crackles or rhonchi or wheezes.. CARDIOVASCULAR: Regular rate and rhythm. Extremities without moderate edema. Palpable 2+ radial pulses. ABDOMEN: Soft, no peritonitis. Mild tenderness at left upper quadrant. Well healed lower midline incision. Negative bowel sounds. LYMPH: No cervical and no axillary lymphadenopathy. MUSCULOSKELETAL: Adequate strength bilaterally. SKIN: No rashes, good skin turgor Examination no clubbing edema or cyanosis. NEUROLOGIC: Alert oriented 3, no gross focal neurologic deficits PSYCH: Normal mood affect and normal mental status examination. - Labs CBC & Chem 7: 09/29/18 04:57 09/29/18 04:57 Labs: Abnormal Lab Results - Last 24 Hours (Table) 09/28/18 09/28/18 09/29/18 Range/Units 05:01 16:00 04:57 WBC 42.9 H (3.8-10.6) k/uL Neutrophils # (Manual) (1.3-7.7) k/uL Lymphocytes # (Manual) (1.0-4.8) k/uL Monocytes # (Manual) (0-1.0) k/uL Metamyelocytes # (Man) (0) k/uL Myelocytes # (Manual) (0) k/uL PT 12.4 H (9.0-12.0) sec INR 1.2 H (<1.2) Sodium (137-145) mmol/L Potassium (3.5-5.1) mmol/L Carbon Dioxide (22-30) mmol/L BUN (7-17) mg/dL Creatinine (0.52-1.04) mg/dL Glucose (74-99) mg/dL Calcium (8.4-10.2) mg/dL Carcinoembryonic Ag 6.7 H (0.0-4.9) ng/mL 09/29/18 09/29/18 Range/Units 04:57 04:57 WBC 39.2 H (3.8-10.6) k/uL Neutrophils # (Manual) 35.60 H (1.3-7.7) k/uL Lymphocytes # (Manual) 0.78 L (1.0-4.8) k/uL Monocytes # (Manual) 1.96 H (0-1.0) k/uL Metamyelocytes # (Man) 0.78 H (0) k/uL Myelocytes # (Manual) 0.39 H (0) k/uL PT (9.0-12.0) sec INR (<1.2) Sodium 135 L (137-145) mmol/L Potassium 3.2 L (3.5-5.1) mmol/L Carbon Dioxide 19 L (22-30) mmol/L BUN 57 H (7-17) mg/dL Creatinine 2.50 H (0.52-1.04) mg/dL Glucose 158 H (74-99) mg/dL Calcium 6.5 L (8.4-10.2) mg/dL Carcinoembryonic Ag (0.0-4.9) ng/mL Microbiology - Last 24 Hours (Table) 09/23/18 14:20 Blood Culture - Preliminary Blood No Growth after 120 hours Assessment and Plan Assessment: Impression: 1 hypotension most likely secondary to abdominal sepsis. 2 possible toxic megacolon, that is being addressed by surgery on the case. 3 leukocytosis secondary to abdominal sepsis 4 acute kidney injury secondary to sepsis and hypotension/acute tubular necrosis 5 history of coronary artery disease and previous stent placement 6 history of hypertension and history of hyperlipidemia Recommendation: Continue present supportive care measures including fluids, antibiotics, I have a strong feeling that the patient may require surgical intervention. Of course the patient is a high surgical risk, but that decision will be made by surgery on the case. Updated her family at her condition, colonoscopy findings done by the surgeon were noted, and the patient is scheduled to have isovue enema as ordered by surgery. Patient needs to remain in the ICU, presently on norepinephrine drip and bicarbonate drip patient is critically ill, family updated on her condition, critical care time is 35 minutes. Time with Patient: Greater than 30
--- NOTE | 2018-09-29 13:08 | XR ---
EXAMINATION TYPE: XR chest 1V portable DATE OF EXAM: 09/29/2018 Comparison: 09/29/2018 Clinical History: 82 year-old female line placement Findings: Left subclavian CVC tip at the cavoatrial junction. Right heart margin partially obscured by adjacent pleural parenchymal opacity. Slight asymmetric elevation right hemidiaphragm unchanged. Continued sm all effusions with patchy bibasilar densities. Impression: Some hypoventilatory changes. Continued small effusions with adjacent atelectasis and/or consolidatio n.
--- NOTE | 2018-09-29 14:16 | P.PN ---
Subjective Progress Note Date: 09/29/18 CHIEF COMPLAINT: Colonic distention HISTORY OF PRESENT ILLNESS: The patient is a 82 year old female who has been in the ICU with sepsis, which was located over 39,000. Incidentally, she denies any abdominal pain at this time. She completed a sigmoidoscopy with attempted decompression however a hard fecal impaction at the sigmoid colon was identified. Multiple passes of removing the fecal impaction was performed. The mucosa was unremarkable. Patient was brought back to the ICU. This time her fa jody is at bedside. After the procedure, she denies any abdominal pain. PHYSICAL EXAM: VITALS: Reviewed CONSTITUTIONAL: Well developed and in no acute distress. EYES: Conjuctivae without sclera icterus. Pupils are equally round and reactive to light. Extraocular movements grossly intact. HEAD, EARS, NOSE, THROAT: Dry buccal mucosa. Head is atraumatic, normocephalic. Hears conversational speech. No nasal drainage. Good dentition. NECK: Supple. No thyroidomegaly. RESPIRATORY: Non-labored respirations and equal bilateral excursions. She is on nasal cannula. CARDIOVASCULAR: Tachycardic. Palpable 2+ radial pulses ABDOMEN: Soft. Nontender. Mild distention. Obese. LYMPH: No neck lymphadenopathy. MUSCULOSKELETAL: Nail and fingers with good capillary refill. SKIN: Warm and well perfused with good skin turgor. NEUROLOGIC: Cranial nerves I through XII grossly intact. Sensation upper and extremities intact. No focal or lateralizing signs. PSYCH: Appropriate affect. Alert and oriented to person, place and time. Displays appropriate insight. CLINCAL LABS: Reviewed. WBC elevated from 42,000 down to 39,000+ RADIOLOGY: Colonic distention stable at 9.5 cm transverse colon ASSESSMENT: 1. Abnormal CT scan for colonic ileus 2. Fecal impaction with large bowel obstruction and sigmoid diverticulosis PLAN: 1. Family and members were at bedside. Colonoscopy findings were reviewed demonstrating no features of colitis or ischemia. A very hard concrete fecal impaction was confirmed at the sigmoid colon. 2. Her family provides additional history whereby the patient has been having ongoing problems with constipation beyond weeks to months. This is consistent finding of fecal impaction 3. Surgical intervention was described with total abdominal colectomy. Patient however denies any peritonitis on exam or abdominal pain. Alternatives include molasses enema as an osmotic enema as Gastrografin is not available. 4. Molasses enema should disrupt the fecal impaction and allow passage of flatus. 5. Otherwise, surgical intervention anticipated for failure of conservative approach in 24 to 48 hrs Patient and family agreeable with the care plan. They are aware that she is high risk with history of sepsis. They are also aware that surgical intervention is also high risk with possibility of ostomy creation Objective - Vital Signs Vital signs: Vital Signs Temp 98.0 F 09/29/18 12:00 Pulse 90 09/29/18 12:00 Resp 25 H 09/29/18 12:00 BP 114/57 09/29/18 12:00 Pulse Ox 96 09/29/18 12:00 Intake & Output 09/28/18 09/29/18 09/29/18 18:59 06:59 18:59 Intake Total 4333.000 1842.554 375 Output Total 960 880 400 Balance 3373.000 962.554 -25 Weight 89.9 kg Intake: IV 3825 1050 375 Dextrose 5% in Water 1, 825 900 375 000 ml @ 75 mls/hr IV . [id number] TAZ with Sodium Bicarb (1 Meq/ml) 150 ml Rx#:[id number] Sodium Chloride 0.9% 1, 3000 000 ml @ 999 mls/hr IV . Q1H1M ONE Rx#:[id number] Intake, IV Titration 508.000 792.554 Amount Norepinephrine 4 mg In 508.000 692.554 Sodium Chloride 0.9% 250 ml @ 0.05 MCG/KG/MIN 16. 669 mls/hr IV .[id number] TAZ Rx#:[id number] metroNIDAZOLE-NS PMX 500 100 mg In Saline 1 100ml.bag @ 100 mls/hr IVPB Q8H TAZ Rx#:[id number] Output: Gastric Drainage 290 Urine 670 880 400 Other: Voiding Method Indwelling Catheter Indwelling Catheter Indwelling Catheter ABP, PAP, CO, CI - Last Documented Arterial Blood Pressure 120/62 - Labs CBC & Chem 7: 09/29/18 04:57 09/29/18 04:57 Labs: Abnormal Lab Results - Last 24 Hours (Table) 09/28/18 09/28/18 09/29/18 Range/Units 05:01 16:00 04:57 WBC 42.9 H (3.8-10.6) k/uL Neutrophils # (Manual) (1.3-7.7) k/uL Lymphocytes # (Manual) (1.0-4.8) k/uL Monocytes # (Manual) (0-1.0) k/uL Metamyelocytes # (Man) (0) k/uL Myelocytes # (Manual) (0) k/uL PT 12.4 H (9.0-12.0) sec INR 1.2 H (<1.2) Sodium (137-145) mmol/L Potassium (3.5-5.1) mmol/L Carbon Dioxide (22-30) mmol/L BUN (7-17) mg/dL Creatinine (0.52-1.04) mg/dL Glucose (74-99) mg/dL Calcium (8.4-10.2) mg/dL Carcinoembryonic Ag 6.7 H (0.0-4.9) ng/mL 09/29/18 09/29/18 Range/Units 04:57 04:57 WBC 39.2 H (3.8-10.6) k/uL Neutrophils # (Manual) 35.60 H (1.3-7.7) k/uL Lymphocytes # (Manual) 0.78 L (1.0-4.8) k/uL Monocytes # (Manual) 1.96 H (0-1.0) k/uL Metamyelocytes # (Man) 0.78 H (0) k/uL Myelocytes # (Manual) 0.39 H (0) k/uL PT (9.0-12.0) sec INR (<1.2) Sodium 135 L (137-145) mmol/L Potassium 3.2 L (3.5-5.1) mmol/L Carbon Dioxide 19 L (22-30) mmol/L BUN 57 H (7-17) mg/dL Creatinine 2.50 H (0.52-1.04) mg/dL Glucose 158 H (74-99) mg/dL Calcium 6.5 L (8.4-10.2) mg/dL Carcinoembryonic Ag (0.0-4.9) ng/mL Microbiology - Last 24 Hours (Table) 09/23/18 14:20 Blood Culture - Preliminary Blood No Growth after 120 hours Assessment and Plan (1) Ileus Current Visit: Yes Status: Acute Code(s): K56.7 - ILEUS, UNSPECIFIED SNOMED Code(s): 626707922 (2) Abnormal CT of the abdomen Current Visit: Yes Status: Acute Code(s): R93.5 - ABN FINDINGS ON DX IMAGING OF ABD REGIONS, INC RETROPERITON SNOMED Code(s): 98671984035364990 (3) Acute renal failure (ARF) Current Visit: Yes Status: Acute Code(s): N17.9 - ACUTE KIDNEY FAILURE, UNSPECIFIED SNOMED Code(s): 49008041 (4) Leukocytosis Current Visit: Yes Status: Acute Code(s): D72.829 - ELEVATED WHITE BLOOD CELL COUNT, UNSPECIFIED SNOMED Code(s): 818418710 (5) Colitis Current Visit: Yes Status: Acute Code(s): K52.9 - NONINFECTIVE GASTROENTERITIS AND COLITIS, UNSPECIFIED SNOMED Code(s): 86983875
[2018-09-29] MEDS: NOREPINEPHRINE 8 MG in SODIUM CHLORIDE 0.9% 250 ML IV SCH ×2 (15:07→21:07)
[2018-09-29] MEDS: DEXTROSE 5% IN WATER 1,000 ML with SODIUM BICARB (1 MEQ/ML) 150 ML IV SCH (18:43)
[2018-09-29] MEDS: ATORVASTATIN 20 MG TAB PO SCH (21:02)
--- NOTE | 2018-09-29 22:07 | P.CONS ---
History of Present Illness - Reason for Consult Consult date: 09/29/18 Elevated white count Requesting physician: Carl Lewis - Chief Complaint Abdominal pain and diarrhea 2 days - History of Present Illness Patient is 82-year-old female presenting to the ER at [facility] on 09/23/2018 with chief complaints of diarrhea for a few days before presenting to the hospital, apparently the patient was treated with oral Keflex for UTI. For the patient diarrhea started the patient was having loose stool 5-6 times per day with no blood or mucus in the stool on presentation to the hospital patient did have mild leukocytosis and white count of 11.1 patient did not have further diarrhea since he was admitted to the hospital stool for C. diff was not done as the patient was treated with oral Levaquin and Flagyl patient was noticed to have progressive worsening of her white count of the next few days and was UP to 40,000 yesterday patient also have a CT of abdominal pelvis completed on 09/26/2089 with did shows nonspecific colitis and distention of the sigmoid colon patient subsequently has been evaluated both by surgery and GI services such as the patient has been transferred to ICU because of hypotensi on requiring further boluses and pressor support patient did have colonoscopy done this morning by surgery with evidence of hard stools and no evidence of any ischemia or pseudomembranous colitis such patient at the time of my evaluation had denies having any fever or chills she is breathing comfortably patient had been complaining of some mild right lower abdominal pain more with the leaking pain 2-3 out of 10 and no radiation no further nausea no vomiting and did not have any bowel movements the patient has been hospital for almost a week now. Review of Systems Positive points has been mentioned in HPI rest of the systems negative Past Medical History Past Medical History: Heart Failure, Hypertension Additional Past Medical History / Comment(s): Coronary artery disease with previous coronary stent, Hypertension, history of ovarian tumor removed in 2004, hypothyroidism and the patient had thyroidectomy, renal cysts, frequent UTIs, cataracts of the eyes, hyperlipidemia., head cyst removed in 2000 History of Any Multi-Drug Resistant Organisms: None Reported Past Surgical History: Heart Catheterization, Heart Catheterization With Stent, Hernia Repair, Hysterectomy Additional Past Surgical History / Comment(s): left shoulder surgery, peripheral angiography Past Anesthesia/Blood Transfusion Reactions: No Reported Reaction Date of Last Stent Placement:: 0 Past Psychological History: No Psychological Hx Reported Smoking Status: Never smoker Past Alcohol Use History: None Reported Past Drug Use History: None Reported Medications and Allergies Home Medications Medication Instructions Recorded Confirmed Type Cholecalciferol [Vitamin D3 (25 5,000 unit PO Q48H 09/11/18 09/23/18 History Mcg = 1000 Iu)] Famotidine [Pepcid] 20 mg PO DAILY 09/11/18 09/23/18 History Ferrous Sulfate [Feosol] 325 mg PO DAILY 09/11/18 09/23/18 History Levothyroxine Sodium [Synthroid] 75 mcg PO DAILY 09/11/18 09/23/18 History Metoprolol Tartrate [Lopressor] 25 mg PO HS 09/11/18 09/23/18 History Metoprolol Tartrate [Lopressor] 50 mg PO DAILY 09/11/18 09/23/18 History Olmesartan/Hydrochlorothiazide 1 tab PO DAILY 09/11/18 09/23/18 History [Benicar Hct 20-12.5 mg Tablet] Simvastatin 40 mg PO HS 09/11/18 09/23/18 History Allergies Allergy/AdvReac Type Severity Reaction Status Date / Time fexofenadine [From Mila] Allergy Unknown Verified 09/23/18 09:14 Physical Exam Vitals: Vital Signs Temp Pulse Resp BP Pulse Ox 09/29/18 12:00 98.0 F 90 25 H 114/57 96 09/29/18 11:00 118 H 29 H 116/50 97 09/29/18 10:00 111 H 33 H 107/44 97 09/29/18 09:11 106 H 09/29/18 09:00 106 H 16 100/51 98 09/29/18 08:00 97.7 F 100 14 92/68 95 09/29/18 06:00 100 22 97 09/29/18 05:45 94 20 97 09/29/18 05:30 96 18 96 09/29/18 05:15 84 98 09/29/18 05:00 87 97 09/29/18 04:45 99 96 09/29/18 04:30 98 31 H 96 09/29/18 04:15 100 30 H 96 09/29/18 04:00 98.5 F 86 18 98 09/29/18 03:45 84 21 98 09/29/18 03:30 92 22 97 09/29/18 03:15 105 H 26 H 96 09/29/18 03:00 81 25 H 102/42 98 09/29/18 02:45 81 24 108/42 98 09/29/18 02:30 87 24 97 09/29/18 02:15 100 35 H 96 09/29/18 02:00 101 H 23 96 09/29/18 01:45 99 19 96 09/29/18 01:30 91 29 H 96 09/29/18 01:15 81 22 98 09/29/18 01:00 82 23 95/44 98 09/29/18 00:45 86 23 95/40 98 09/29/18 00:30 86 21 98 09/29/18 00:15 88 24 98 09/29/18 00:00 98.4 F 98 32 H 97 09/28/18 23:45 103 H 24 96 09/28/18 23:30 98 26 H 97 09/28/18 23:18 102 H 12 96 09/28/18 23:15 107 H 21 96 09/28/18 23:00 106 H 35 H 96 09/28/18 22:45 93 35 H 99 09/28/18 22:30 107 H 29 H 98 09/28/18 22:15 102 H 23 98 09/28/18 22:00 105 H 22 98 09/28/18 21:45 110 H 30 H 98 09/28/18 21:30 111 H 24 96 09/28/18 21:15 115 H 26 H 96 09/28/18 21:00 98 22 97 09/28/18 20:45 120 H 33 H 95 09/28/18 20:30 115 H 24 96 09/28/18 20:15 113 H 25 H 97 09/28/18 20:02 102 H 09/28/18 20:00 97.8 F 98 25 H 99 09/28/18 19:52 98 09/28/18 19:45 78 35 H 99 09/28/18 19:30 73 0 L 100/31 99 09/28/18 19:15 80 4 L 96/38 98 09/28/18 19:00 73 18 89/45 98 09/28/18 18:30 72 16 95/35 98 09/28/18 18:00 84 16 96/42 98 09/28/18 17:30 105 H 16 110/61 97 09/28/18 17:00 99 20 113/31 96 09/28/18 16:30 113 H 22 111/42 95 09/28/18 16:00 97 F L 108 H 23 126/38 94 L 09/28/18 15:30 105 H 18 114/83 95 09/28/18 15:00 98 19 95 09/28/18 14:30 97 18 95 09/28/18 14:00 92 18 94 L 09/28/18 13:30 105 H 16 95 Intake and Output 09/28/18 09/29/18 09/29/18 22:59 06:59 14:59 Intake Total 4638.089 7038.552 375 Output Total 605 695 400 Balance 1263.002 833.552 -25 Intake: IV 1600 750 375 Dextrose 5% in Water 1, 600 600 375 000 ml @ 75 mls/hr IV . [id number] TAZ with Sodium Bicarb (1 Meq/ml) 150 ml Rx#:[id number] Sodium Chloride 0.9% 1, 1000 000 ml @ 999 mls/hr IV . Q1H1M ONE Rx#:[id number] Intake, IV Titration 268.002 778.552 Amount Norepinephrine 4 mg In 268.002 678.552 Sodium Chloride 0.9% 250 ml @ 0.05 MCG/KG/MIN 16. 669 mls/hr IV .[id number] TAZ Rx#:[id number] metroNIDAZOLE-NS PMX 500 100 mg In Saline 1 100ml.bag @ 100 mls/hr IVPB Q8H [facility] Rx#:[id number] Output: Gastric Drainage 140 Urine 465 695 400 Other: Voiding Method Indwelling Catheter Indwelling Catheter Indwelling Catheter Weight 89.9 kg ABP, PAP, CO, CI - Last 8 Hours Arterial Blood Pressure 120/62 Arterial Blood Pressure 111/54 Arterial Blood Pressure 101/49 Arterial Blood Pressure 112/53 Arterial Blood Pressure 93/45 Arterial Blood Pressure 101/47 Arterial Blood Pressure 97/47 Arterial Blood Pressure 99/45 GENERAL DESCRIPTION: An elderly female lying in bed, no distress. No tachypnea or accessory muscle of respiration use. HEENT: Shows Pallor , no scleral icterus. Oral mucous membrane is dry. No pharyngeal erythema or thrush NECK: Trachea central, no thyromegaly. LUNGS: Unlabored breathing. Clear to auscultation anteriorly. No wheeze or crackle. HEART: S1, S2, regular rate and rhythm. No loud murmur ABDOMEN: Soft, no tenderness , guarding or rigidity, no organomegaly EXTREMITIES: No edema of feet. SKIN: No rash, no masses palpable. NEUROLOGICAL: The patient is awake, alert, oriented x3, mood and affect normal Results CBC & Chem 7: 09/29/18 04:57 09/29/18 04:57 Labs: Abnormal Lab Results - Last 24 Hours (Table) 09/28/18 09/28/18 09/29/18 Range/Units 05:01 16:00 04:57 WBC 42.9 H (3.8-10.6) k/uL Neutrophils # (Manual) (1.3-7.7) k/uL Lymphocytes # (Manual) (1.0-4.8) k/uL Monocytes # (Manual) (0-1.0) k/uL Metamyelocytes # (Man) (0) k/uL Myelocytes # (Manual) (0) k/uL PT 12.4 H (9.0-12.0) sec INR 1.2 H (<1.2) Sodium (137-145) mmol/L Potassium (3.5-5.1) mmol/L Carbon Dioxide (22-30) mmol/L BUN (7-17) mg/dL Creatinine (0.52-1.04) mg/dL Glucose (74-99) mg/dL Calcium (8.4-10.2) mg/dL Carcinoembryonic Ag 6.7 H (0.0-4.9) ng/mL 09/29/18 09/29/18 Range/Units 04:57 04:57 WBC 39.2 H (3.8-10.6) k/uL Neutrophils # (Manual) 35.60 H (1.3-7.7) k/uL Lymphocytes # (Manual) 0.78 L (1.0-4.8) k/uL Monocytes # (Manual) 1.96 H (0-1.0) k/uL Metamyelocytes # (Man) 0.78 H (0) k/uL Myelocytes # (Manual) 0.39 H (0) k/uL PT (9.0-12.0) sec INR (<1.2) Sodium 135 L (137-145) mmol/L Potassium 3.2 L (3.5-5.1) mmol/L Carbon Dioxide 19 L (22-30) mmol/L BUN 57 H (7-17) mg/dL Creatinine 2.50 H (0.52-1.04) mg/dL Glucose 158 H (74-99) mg/dL Calcium 6.5 L (8.4-10.2) mg/dL Carcinoembryonic Ag (0.0-4.9) ng/mL Microbiology - Last 24 Hours (Table) 09/23/18 14:20 Blood Culture - Preliminary Blood No Growth after 120 hours Assessment and Plan Assessment: 1-patient with leukocytosis source is likely abdominal and this patient who did present to the hospital with the diarrhea for a few days and the patient was exposed to antibiotics in the form of Keflex before her diarrhea started, that will be suggestive of his C. diff colitis however the patient did not have any bowel movement since she has been in the hospital and stool for C. diff could not be completed with a CT of abdominal pelvis did shows significant colonic distention and colitis however the patient had did have colonoscopy done today with evidence of hard stools and no evidence of ischemia or pseudomembrane with a likely etiology of his elevated white count and possible Distention and microscopic ischemia from the hard stools the patient has Plan: 1-the patient to continue on Zosyn 3.375 g every 8 hours however discontinue the oral vancomycin 2-gentle IV fluids we will follow up on clinical condition and cultures to further adjust medication if needed Thank you for this consultation will follow this patient along with you Time with Patient: Greater than 30
[2018-09-30] MEDS: ALPRAZolam 0.25 MG TAB PO PRN (00:18)
[2018-09-30] MEDS: NOREPINEPHRINE 8 MG in SODIUM CHLORIDE 0.9% 250 ML IV SCH ×3 (03:10→13:03)
[2018-09-30 05:37] LABS: HCT 40.8 % (34.0-46.0); HGB 12.9 gm/dL (11.4-16.0); Hypochromasia Moderate; MCH 28.8 pg (25.0-35.0); MCHC 31.6 g/dL (31.0-37.0); MCV 90.9 fL (80.0-100.0); Mean Platelet Volume 8.1; Platelet Count 160 k/uL (150-450); RBC 4.48 m/uL (3.80-5.40); RDW 14.9 % (11.5-15.5); WBC 39.4 k/uL (3.8-10.6)
[2018-09-30 05:52] LABS: Albumin 1.9 g/dL (3.5-5.0); Calcium 6.5 mg/dL (8.4-10.2); Potassium 3.1 mmol/L (3.5-5.1); Total Bilirubin 0.6 mg/dL (0.2-1.3); Total Protein 4.1 g/dL (6.3-8.2)
[2018-09-30] MEDS: metroNIDAZOLE-NS PMX 500 MG in SALINE 1 100ML.BAG IVPB SCH (06:42)
[2018-09-30 06:50] LABS: Band Neutrophils % 1 %; Lymphocytes # (M) 1.18 k/uL (1.0-4.8); Monocytes # (M) 3.94 k/uL (0-1.0); Myelocytes # (M) 0.79 k/uL (0); Myelocytes % 2 %; Neutrophils % (M) 84 %; Nucleated Red Blood Cells 0 /100 WBC (0-0); Total Cells Counted 200
[2018-09-30] MEDS: DEXTROSE 5% IN WATER 1,000 ML with SODIUM BICARB (1 MEQ/ML) 150 ML IV SCH (06:52)
[2018-09-30] MEDS ORDERED: Potassium Replacement Protocol 1 EACH MISC MISCELLANE PRN (07:12)
[2018-09-30] MEDS: IPRATROPIUM-ALBUTEROL 3 ML NEB INHALATION SCH (07:30)
--- NOTE | 2018-09-30 08:12 | XR ---
EXAMINATION TYPE: XR chest 1V portable DATE OF EXAM: 09/30/2018 COMPARISON: 09/29/2018 HISTORY: Congestive heart failure. Follow-up exam. ICU management. TECHNIQUE: Single frontal view of the chest is obtained. FINDINGS: Chronic right hemidiaphragm elevation and small bilateral pleural effusions remain. Enteri c tube is in normal position. Left subclavian approach central venous line is also similar in positio n. Cardia mediastinal silhouette is obscured but unchanged. Patchy bibasilar atelectasis is also unch anged. Moderate degenerative changes of the spine and diffuse osseous demineralization. IMPRESSION: Stable exam with right hemidiaphragm elevation, bibasilar atelectasis and small pleural effusions
[2018-09-30] MEDS: MIDODRINE 5 MG TAB PO SCH ×2 (08:22→12:28)
[2018-09-30] MEDS: CHOLECALCIFEROL 1,000 UNIT TAB PO SCH (08:23)
[2018-09-30] MEDS: POTASSIUM BICARBONATE/CIT AC 20 MEQ TABLET.EFF NG-TUBE SCH ×2 (08:23→09:30)
[2018-09-30] MEDS: FAMOTIDINE 20 MG/2 ML VIAL IV SCH (08:24)
[2018-09-30] MEDS: HEPARIN SODIUM,PORCINE 5,000 UNIT/ML 1 ML VIAL SQ SCH (08:24)
[2018-09-30] MEDS: PANTOPRAZOLE 40 MG/10 ML VIAL IVP SCH (08:24)
[2018-09-30] MEDS: PIPERACILLIN-TAZOBACTAM 3.375 GM in SODIUM CHLORIDE 0.9% 100 ML IVPB SCH (08:25)
[2018-09-30] MEDS: SODIUM BICARBONATE TAB 650 MG TAB PO SCH (08:25)
[2018-09-30 09:34] VITALS: TEMP 97.7
--- NOTE | 2018-09-30 09:45 | XR ---
EXAMINATION TYPE: XR abdomen 1V DATE OF EXAM: 09/30/2018 Comparison: 09/29/2018 Clinical History: 82-year-old female fecal impaction Findings: Marked air distention of the colon measuring up to 9.4 cm. Residual retained oral contrast within the ascending colon. NG tube is present. Small effusion suggested. Supine imaging limited for assessment of free air. No significant stool seen within the rectum. Impression: Persistent marked air distention of the colon, particularly the transverse colon which measures up to 9.4 cm wide. Note that this places the patient at risk for colonic perforation. Retained oral contra st within the right side of the colon. No significant stool is identified.
[2018-09-30] MEDS ORDERED: FUROSEMIDE 10 MG/ML 4 ML VIAL IV STA (09:56)
[2018-09-30] MEDS: ONDANSETRON 4 MG/2 ML VIAL IVP PRN (09:59)
[2018-09-30] MEDS: POTASSIUM CHLORIDE 20 MEQ in WATER FOR INJECTION 1 100ML.BAG IVPB SCH ×2 (10:04→12:28)
[2018-09-30] MEDS ORDERED: ACETAMINOPHEN IV (For NPO) 1,000 MG in EMPTY BAG 1 BAG IVPB PRN (10:34)
--- NOTE | 2018-09-30 11:29 | P.PN ---
Subjective Progress Note Date: 09/29/18 82 y/o female comes in with abd pain, diarrhea. Shewas in [place]. She was started on iv fluids. Levaquin was started as well. Today the patient still complains of abd pain. She says the diarrhea is controlled now. She had a code stroke called yesterday. Looks like she was having seizure. Rhianna was consulted. 09/27/2018 Patient was still complaining of abdominal pain She said that she still nauseous. Her pressures were low this morning 2018 Pt transferred to ICU yesterday for persistant hypotension She was started on zosyn and oral vanco. Levaquin was dcec, flagyl was continued 09/29/2018 Patient remains hypotensive. There is no clear-cut source of infection patient is quite a bit constipated there is no evidence of for C. diff colitis are diverticulitis because of which vancomycin is being discontinued Zosyn is being continued because of requirement of pressors. Patient is probably dehydrated intravascularly volume depleted but is requiring high dose of norepinephrine 25 mics along with leukocytosis. Although there is no clear-cut evidence or source of infection at this time. Consulted infectious disease. She has fecal impaction Objective - Vital Signs Vital signs: Vital Signs Temp 97.7 F 09/30/18 08:00 Pulse 98 09/30/18 11:00 Resp 24 09/30/18 11:00 BP 92/78 09/30/18 11:00 Pulse Ox 95 09/30/18 11:00 Intake & Output 09/29/18 09/30/18 09/30/18 18:59 06:59 18:59 Intake Total 825 1247.599 493 Output Total 555 575 405 Balance 270 672.599 88 Weight 90.6 kg Intake: IV 825 900 493 0.9 for pressure bag 18 ACETAMINOPHEN IV (For NPO 100 ) 1,000 mg In Empty Bag 1 bag @ 400 mls/hr IVPB Q6HR PRN Rx#:[id number] Dextrose 5% in Water 1, 825 900 300 000 ml @ 75 mls/hr IV . [id number] TAZ with Sodium Bicarb (1 Meq/ml) 150 ml Rx#:[id number] Piperacillin-Tazobactam 3 75 .375 gm In Sodium Chloride 0.9% 100 ml @ 25 mls/hr IVPB Q12HR TAZ Rx #:[id number] Intake, IV Titration 347.599 Amount Norepinephrine 8 mg In 247.599 Sodium Chloride 0.9% 250 ml @ 0.05 MCG/KG/MIN 8. 698 mls/hr IV .Q24H TAZ Rx#:[id number] Piperacillin-Tazobactam 3 100 .375 gm In Sodium Chloride 0.9% 100 ml @ 25 mls/hr IVPB Q8HR TAZ Rx# :[id number] Output: Gastric Drainage 200 Urine 555 575 155 Emesis 50 Other: Voiding Method Indwelling Catheter Indwelling Catheter ABP, PAP, CO, CI - Last Documented Arterial Blood Pressure 130/57 - Exam PHYSICAL EXAMINATION: GENERAL: The patient is alert and oriented x3, not in any acute distress. Well developed, well nourished. HEENT: Pupils are round and equally reacting to light. EOMI. No scleral icterus. No conjunctival pallor. Normocephalic, atraumatic. No pharyngeal erythema. No thyromegaly. CARDIOVASCULAR: S1 and S2 present. No murmurs, rubs, or gallops. PULMONARY: Chest is clear to auscultation, no wheezing or crackles. ABDOMEN: Slightly distended has absent bowel sounds no tenderness MUSCULOSKELETAL: No joint swelling or deformity. EXTREMITIES: No cyanosis, clubbing, or pedal edema. NEUROLOGICAL: Gross neurological examination did not reveal any focal deficits. SKIN: No rashes. - Labs CBC & Chem 7: 09/30/18 04:51 09/30/18 04:51 Labs: Abnormal Lab Results - Last 24 Hours (Table) 09/30/18 09/30/18 Range/Units 04:51 04:51 WBC 39.4 H (3.8-10.6) k/uL Neutrophils # (Manual) 33.40 H (1.3-7.7) k/uL Monocytes # (Manual) 3.94 H (0-1.0) k/uL Myelocytes # (Manual) 0.79 H (0) k/uL Potassium 3.1 L (3.5-5.1) mmol/L BUN 51 H (7-17) mg/dL Creatinine 2.12 H (0.52-1.04) mg/dL Glucose 152 H (74-99) mg/dL Calcium 6.5 L (8.4-10.2) mg/dL AST 51 H (14-36) U/L Total Protein 4.1 L (6.3-8.2) g/dL Albumin 1.9 L (3.5-5.0) g/dL Microbiology - Last 24 Hours (Table) 09/23/18 14:20 Blood Culture - Final Blood No Growth after 144 hours Assessment and Plan Plan: -Distended: Secondary to fecal impaction -Hypovolemic shock patient is on pressor support patient will be continued on IV fluids no evidence of infection at this time no evidence of C. diff colitis at this time. -Acute renal failure: Secondary to intravascular depletion and hypotension possibly of acute tubular necrosis. Continue with IV fluids and pressor support -Leukocytosis with the highly elevated white blood cell count of 36,000 neutrophilic predominance, without any blast cells probably reactive because of the such a high white blood cell count antibiotics are being continued and the patient is also requiring high amount of pressors -Coronary artery disease Patient will require DVT prophylaxis and GI prophylaxis
--- NOTE | 2018-09-30 11:33 | P.PN ---
Progress Note - Text Progress Note Date: 09/30/18 Spoke to daughter Christine about surgery. She states that her mother does not want any further care or surgery. COMFORT CARE is being sought. We will abide by her wishes. Recommend arrangement for HOSPICE.
--- NOTE | 2018-09-30 11:42 | P.PN ---
Subjective Progress Note Date: 09/30/18 Principal diagnosis: Abdominal distention, possible abdominal sepsis. This 82-year-old female patient got transferred to the ICU yesterday due to concern of sepsis, hypotension/colitis. The patient was moved to the ICU. The patient was running a lower blood pressure. The patient was given IV fluid bolus and the patient was started on broad-spectrum antibiotics. Lactic acid level was checked and was nonelevated. Film of the abdomen was done and there was no evidence of any free air in the abdomen. The patient however was developing low urine output and an acute kidney injury in the creatinine was up to 3.04. Urine output has also dropped. Based on that, the patient got transferred to the ICU. Blood gases from yesterday showed a pH of 7.27 with a pCO2 of 35 and a pO2 of 95. Note that this patient was initially admitted to the hospital because of abdominal pain. Her white cell count gradually came up to 30,000. She denied passing any flatus. Multiple symptoms of the abdomen were obtained and there is large bowel distention and the large well was markedly distended at the level of the colon and level of sigmoid up to 9 cm. There was also the possibility of distal colonic obstruction. The CAT scan of the abdomen that was done at time of admission on 09/26/2018 showed also dilated large bowel consistent with possible ileus versus bowel obstruction. There is also wall thickening of the sigmoid colon. The patient is currently on accommodation Zosyn and vancomycin and Flagyl. General surgeries on the case. I do length discussion with Dr. Aguilar and the patient will be having a colonoscopy to rule out any anatomic obstruction. The patient is currently on a bicarb infusion the rate of 75 mL an hour. The patient is on pressors and levo fed is running at 18 g per minute. She is awake and alert. Triple lumen catheter was inserted. Artline catheter was inserted for hemodynamic monitoring. Also an ultrasound the gallbladder is in progress to rule out any gallbladder pathology contributing to her presentation. Reevaluated today on 09/29/2018, patient remains in the ICU, remains on norepinephrine for low blood pressure, at 24 g. Minutes, is also on bicarb drip, continues to have abdominal distention, but not much abdominal pain or tenderness on physical examination. Abdominal films today revealed dilated loops of colon measuring up to nearly 10 cm, differential diagnoses includes colitis, toxic megacolon, colonic ischemia. Patient is scheduled to have an enema by general surgery on the case. Family is at bedside and updated on her condition. WBC count is on the rise 39.2 hemoglobin is 13.3 electrolytes are relatively normal except for low bicarb of 19 potassium of 3.2 BUN is 57 creatinine 2.50, improved compared to yesterday. Patient denies any shortness of breath, no chest pain, no nausea, no vomiting, and she has some vague abdominal discomfort. Reevaluated today on 09/30/2018, patient remains hypotensive, remains in the ICU, on 20 g of epinephrine per minute, urine output is marginal, her CVP is 12, chest x-ray is showing evidence of mild congestion, and right-sided pleural effusion with patchy bibasilar atelectasis, x-rays of the abdomen continues to show significant air distention of the colon approximately up to 9.4 cm, apparently the option of surgery was discussed by the surgeon with her family, and the family is refusing surgical intervention. Hence patient is being considered for hospice care. That is being decided upon by surgery on the case. Labs continues to show leukocytosis with WBC count of 39.4 hemoglobin is 12.9 electrolytes showed low potassium of 3.1 renal profile seems to be improving, patient has been receiving fluids, and today I have recommended one dose of Lasix because of marginal urine output. Objective - Vital Signs Vital signs: Vital Signs Temp 97.7 F 09/30/18 08:00 Pulse 98 09/30/18 11:00 Resp 24 09/30/18 11:00 BP 92/78 09/30/18 11:00 Pulse Ox 95 09/30/18 11:00 Intake & Output 09/29/18 09/30/18 09/30/18 18:59 06:59 18:59 Intake Total 825 1247.599 493 Output Total 555 575 405 Balance 270 672.599 88 Weight 90.6 kg Intake: IV 825 900 493 0.9 for pressure bag 18 ACETAMINOPHEN IV (For NPO 100 ) 1,000 mg In Empty Bag 1 bag @ 400 mls/hr IVPB Q6HR PRN Rx#:[id number] Dextrose 5% in Water 1, 825 900 300 000 ml @ 75 mls/hr IV . [id number] with Sodium Bicarb (1 Meq/ml) 150 ml Rx#:[id number] Piperacillin-Tazobactam 3 75 .375 gm In Sodium Chloride 0.9% 100 ml @ 25 mls/hr IVPB Q12HR [facility] Rx #:[id number] Intake, IV Titration 347.599 Amount Norepinephrine 8 mg In 247.599 Sodium Chloride 0.9% 250 ml @ 0.05 MCG/KG/MIN 8. 698 mls/hr IV .Q24H [facility] Rx#:[id number] Piperacillin-Tazobactam 3 100 .375 gm In Sodium Chloride 0.9% 100 ml @ 25 mls/hr IVPB Q8HR [facility] Rx# :[id number] Output: Gastric Drainage 200 Urine 555 575 155 Emesis 50 Other: Voiding Method Indwelling Catheter Indwelling Catheter ABP, PAP, CO, CI - Last Documented Arterial Blood Pressure 130/57 - Exam General: Revealed 82-year-old female, very pleasant, in no distress. Head: Atraumatic, normocephalic. HEENT: PERRLA, EOMI, no neck masses, no JVD, no stridor, moist mucous membranes, left subclavian central line is noted. RESPIRATORY: Diminished breath sounds at the bases no crackles or rhonchi or wheezes.. CARDIOVASCULAR: Regular rate and rhythm. Extremities without moderate edema. Palpable 2+ radial pulses. ABDOMEN: Soft, no peritonitis. Mild tenderness at left upper quadrant. Well healed lower midline incision. Negative bowel sounds. LYMPH: No cervical and no axillary lymphadenopathy. MUSCULOSKELETAL: Adequate strength bilaterally. SKIN: No rashes, good skin turgor Examination no clubbing edema or cyanosis. NEUROLOGIC: Alert oriented 3, no gross focal neurologic deficits PSYCH: Normal mood affect and normal mental status examination. - Labs CBC & Chem 7: 09/30/18 04:51 09/30/18 04:51 Labs: Abnormal Lab Results - Last 24 Hours (Table) 09/30/18 09/30/18 Range/Units 04:51 04:51 WBC 39.4 H (3.8-10.6) k/uL Neutrophils # (Manual) 33.40 H (1.3-7.7) k/uL Monocytes # (Manual) 3.94 H (0-1.0) k/uL Myelocytes # (Manual) 0.79 H (0) k/uL Potassium 3.1 L (3.5-5.1) mmol/L BUN 51 H (7-17) mg/dL Creatinine 2.12 H (0.52-1.04) mg/dL Glucose 152 H (74-99) mg/dL Calcium 6.5 L (8.4-10.2) mg/dL AST 51 H (14-36) U/L Total Protein 4.1 L (6.3-8.2) g/dL Albumin 1.9 L (3.5-5.0) g/dL Microbiology - Last 24 Hours (Table) 09/23/18 14:20 Blood Culture - Final Blood No Growth after 144 hours Assessment and Plan Assessment: Impression: 1 hypotension most likely secondary to abdominal sepsis. And septic shock 2 possible toxic megacolon, that is being addressed by surgery on the case. 3 leukocytosis secondary to abdominal sepsis 4 acute kidney injury secondary to sepsis and hypotension/acute tubular necrosis 5 history of coronary artery disease and previous stent placement 6 history of hypertension and history of hyperlipidemia Recommendation: Ideally speaking the patient will need surgical intervention, however considering the family and the patient refused surgical intervention, comfort care measures are being addressed by the admitting physician and by the surgeon on the case, may require hospice evaluation. Prognosis is at this point extremely poor. We'll continue to follow Time with Patient: Less than 30
--- NOTE | 2018-09-30 12:18 | CDI ---
Documentation Clarification Form Date: 09/30/2018 11:50:27 AM From: Samra Catalan RN, CCDS Admit Date: 09/24/2018 10:10:00 AM Patient Name: Mahsa Luevano Visit Number: [id number] ATTENTION: The Clinical Documentation Specialists (CDI) and [facility] Coding Staff appreciate your assistance in clarifying documentation. Please respond to the clarification below the line at the bottom and electronically sign. The CDI & [facility] Coding staff will review the response and follow-up if needed. Please note: Queries are made part of the Legal Health Record. If you have any questions, please contact the author of this message via ITS. Dr. Adi Ly Hypotension related to dehydration and hypovolemia is documented in the H&P and progress notes and requires further specificity. Patient history/risk factors: CHF, HTN, CAD, Hernia Repair Clinical Indicators: 09/23/18 H&P: "toward hypotension, going down to 74 systolic at this time, after fluid bolus coming up to 102/47. Rule out infective or C difficile colitis. Hypotension secondary to hypovolemia. History of recent urinary tract infection. 09/27 Nephrology Consult: Acute kidney injury secondary to hypotension, hypoperfusion, acute tubular necrosis. ATN. Check accurate I O. Also check post- void residual. Hypotension with normal cortical level." 09/29 ID: patient has been transferred to ICU because of hypotension requiring further boluses and pressor support... Vitals: Temp 98.9, HR 113, RR 18, B/P 88/41, Spo2 93% RA Treatment: IV Levophed Gtt titrate for B/P IVF Bolus 7 L In your professional opinion, can you please specify the type of shock if known? Septic Shock Suspected or known causative organism Any associated organ failure Hypovolemic Shock Cause Other, please specify Unable to determine (Last Revision: December 2016) MTDD
--- NOTE | 2018-09-30 12:57 | P.PN ---
<Pina Carvalho A - Last Filed: 09/30/18 12:55> Subjective Progress Note Date: 09/30/18 CHIEF COMPLAINT: colonic distention HISTORY OF PRESENT ILLNESS: Patient examined at the bedside in the ICU. Patient complains of nausea and having small amount of emesis during examination. NG tube was clamped secondary to medications being administered. NG unclamped during examination. Patient reports nausea improved. NG with small amount of bilious output. Patient received enemas yesterday. She had a very small hard bowel movement. Patient denies passing flatus this morning. Abdominal xray obtained revealing persistent marked distention of the colon. Transverse colon measuring up to 9.4 cm. WBC remains elevated at 39.4. She remains on vasopressor support. PHYSICAL EXAM: VITAL SIGNS: Currently stable. GENERAL: Well-developed in no acute distress but appears to be feeling unwell. HEENT: NG to LIS with bilious drainage. No sclera icterus. Extraocular mov ements grossly intact. Moist buccal mucosa. Head is atraumatic, normocephalic. Hears conversational speech. No nasal drainage. NECK: Supple without lymphadenopathy. CHEST: Non-labored respirations and equal bilateral excursions. CARDIOVASCULAR: Mildly tachycardic. Regular rate with regular rhythm. Palpable 2+ radial pulses. ABDOMEN: Soft. Nondistended. Nontender. MUSCULOSKELETAL: No clubbing, cyanosis or edema. NEUROLOGIC: No focal or lateralizing signs. Cranial nerves II through XII grossly intact. PSYCH: Appropriate affect. Alert and oriented to person, place and time. SKIN: Well perfused. Good skin turgor. ASSESSMENT: 1. Abnormal CT scan for colonic ileus 2. Fecal impaction with large bowel obstruction and sigmoid diverticulosis PLAN: Dr. Ramirez spoke with patients daughter via phone this morning who states her mother does not want any further treatment and does not want to undergo surgery. Patient and family requesting to go comfort care. Agreeable to their wishes. Hospice consult placed. Nurse practitioner note has been reviewed by physician. Signing provider agrees with the documented findings, assessment, and plan of care. Objective - Vital Signs Vital signs: Vital Signs Temp 97.7 F 09/30/18 08:00 Pulse 82 09/30/18 12:30 Resp 20 09/30/18 12:30 BP 106/35 09/30/18 12:30 Pulse Ox 99 09/30/18 12:30 Intake & Output 09/29/18 09/30/18 09/30/18 18:59 06:59 18:59 Intake Total 825 1247.599 524 Output Total 555 575 465 Balance 270 672.599 59 Weight 90.6 kg Intake: IV 825 900 524 0.9 for pressure bag 24 ACETAMINOPHEN IV (For NPO 100 ) 1,000 mg In Empty Bag 1 bag @ 400 mls/hr IVPB Q6HR PRN Rx#:[id number] Dextrose 5% in Water 1, 825 900 300 000 ml @ 75 mls/hr IV . [id number] with Sodium Bicarb (1 Meq/ml) 150 ml Rx#:[id number] Piperacillin-Tazobactam 3 100 .375 gm In Sodium Chloride 0.9% 100 ml @ 25 mls/hr IVPB Q12HR [facility] Rx #:[id number] Intake, IV Titration 347.599 Amount Norepinephrine 8 mg In 247.599 Sodium Chloride 0.9% 250 ml @ 0.05 MCG/KG/MIN 8. 698 mls/hr IV .Q24H [facility] Rx#:[id number] Piperacillin-Tazobactam 3 100 .375 gm In Sodium Chloride 0.9% 100 ml @ 25 mls/hr IVPB Q8HR [facility] Rx# :[id number] Output: Gastric Drainage 200 Urine 555 575 215 Emesis 50 Other: Voiding Method Indwelling Catheter Indwelling Catheter Indwelling Catheter ABP, PAP, CO, CI - Last Documented Arterial Blood Pressure 119/51 - Labs CBC & Chem 7: 09/30/18 04:51 09/30/18 04:51 Labs: Abnormal Lab Results - Last 24 Hours (Table) 09/30/18 09/30/18 Range/Units 04:51 04:51 WBC 39.4 H (3.8-10.6) k/uL Neutrophils # (Manual) 33.40 H (1.3-7.7) k/uL Monocytes # (Manual) 3.94 H (0-1.0) k/uL Myelocytes # (Manual) 0.79 H (0) k/uL Potassium 3.1 L (3.5-5.1) mmol/L BUN 51 H (7-17) mg/dL Creatinine 2.12 H (0.52-1.04) mg/dL Glucose 152 H (74-99) mg/dL Calcium 6.5 L (8.4-10.2) mg/dL AST 51 H (14-36) U/L Total Protein 4.1 L (6.3-8.2) g/dL Albumin 1.9 L (3.5-5.0) g/dL Microbiology - Last 24 Hours (Table) 09/23/18 14:20 Blood Culture - Final Blood No Growth after 144 hours Assessment and Plan (1) Abnormal CT of the abdomen Status: Acute Code(s): R93.5 - ABN FINDINGS ON DX IMAGING OF ABD REGIONS, INC RETROPERITON SNOMED Code(s): 84176711307788431 (2) Colitis Status: Acute Code(s): K52.9 - NONINFECTIVE GASTROENTERITIS AND COLITIS, UNSPECIFIED SNOMED Code(s): 85713854 (3) Ileus Status: Acute Code(s): K56.7 - ILEUS, UNSPECIFIED SNOMED Code(s): 346395855 (4) Leukocytosis Status: Acute Code(s): D72.829 - ELEVATED WHITE BLOOD CELL COUNT, UNSPECIFIED SNOMED Code(s): 371831770 (5) Nausea Status: Acute Code(s): R11.0 - NAUSEA SNOMED Code(s): 574158771 <Luba Ramirez N - Last Filed: 09/30/18 22:27> Subjective I personally came by this evening to speak with family and address any further questions or concerns that they had. The patient is receiving comfort care. All questions addressed and my sympathy was shared with her family. Objective - Vital Signs Vital signs: Vital Signs Temp 97.7 F 09/30/18 08:00 Pulse 80 09/30/18 13:00 Resp 24 09/30/18 13:00 BP 86/69 09/30/18 13:00 Pulse Ox 99 09/30/18 13:00 Intake & Output 09/30/18 09/30/18 10/01/18 06:59 18:59 06:59 Intake Total 1247.599 788 Output Total 575 490 Balance 672.599 298 Weight 90.6 kg Intake: IV 900 530 0.9 for pressure bag 30 ACETAMINOPHEN IV (For NPO 100 ) 1,000 mg In Empty Bag 1 bag @ 400 mls/hr IVPB Q6HR [facility] Rx#:[id number] Dextrose 5% in Water 1, 900 300 000 ml @ 75 mls/hr IV . [id number] [facility] with Sodium Bicarb (1 Meq/ml) 150 ml Rx#:[id number] Piperacillin-Tazobactam 3 100 .375 gm In Sodium Chloride 0.9% 100 ml @ 25 mls/hr IVPB Q12HR [facility] Rx #:[id number] Intake, IV Titration 347.599 258 Amount Norepinephrine 8 mg In 247.599 258 Sodium Chloride 0.9% 250 ml @ 0.05 MCG/KG/MIN 8. 698 mls/hr IV .Q24H [facility] Rx#:[id number] Piperacillin-Tazobactam 3 100 .375 gm In Sodium Chloride 0.9% 100 ml @ 25 mls/hr IVPB Q8HR [facility] Rx# :[id number] Output: Gastric Drainage 200 Urine 575 240 Emesis 50 Other: Voiding Method Indwelling Catheter Indwelling Catheter ABP, PAP, CO, CI - Last Documented Arterial Blood Pressure 119/52 - Labs CBC & Chem 7: 09/30/18 04:51 09/30/18 04:51 Labs: Abnormal Lab Results - Last 24 Hours (Table) 09/30/18 09/30/18 Range/Units 04:51 04:51 WBC 39.4 H (3.8-10.6) k/uL Neutrophils # (Manual) 33.40 H (1.3-7.7) k/uL Monocytes # (Manual) 3.94 H (0-1.0) k/uL Myelocytes # (Manual) 0.79 H (0) k/uL Potassium 3.1 L (3.5-5.1) mmol/L BUN 51 H (7-17) mg/dL Creatinine 2.12 H (0.52-1.04) mg/dL Glucose 152 H (74-99) mg/dL Calcium 6.5 L (8.4-10.2) mg/dL AST 51 H (14-36) U/L Total Protein 4.1 L (6.3-8.2) g/dL Albumin 1.9 L (3.5-5.0) g/dL Assessment and Plan (1) Ileus Status: Acute Code(s): K56.7 - ILEUS, UNSPECIFIED SNOMED Code(s): 106643993 (2) Abnormal CT of the abdomen Status: Acute Code(s): R93.5 - ABN FINDINGS ON DX IMAGING OF ABD REGIONS, INC RETROPERITON SNOMED Code(s): 33332817143181388 (3) Acute renal failure (ARF) Status: Acute Code(s): N17.9 - ACUTE KIDNEY FAILURE, UNSPECIFIED SNOMED Code(s): 50446922 (4) Leukocytosis Status: Acute Code(s): D72.829 - ELEVATED WHITE BLOOD CELL COUNT, UNSPECIFIED SNOMED Code(s): 034094692 (5) Colitis Status: Acute Code(s): K52.9 - NONINFECTIVE GASTROENTERITIS AND COLITIS, UNSPECIFIED SNOMED Code(s): 25279269
[2018-09-30 13:04] VITALS: BP 86/69; PULSE 80; RESP 24
--- NOTE | 2018-09-30 13:40 | PN ---
PROGRESS NOTE DATE OF SERVICE: 09/30/2018 REASON FOR FOLLOWUP: Leukocytosis possible abdominal source. INTERVAL HISTORY: The patient is currently afebrile. Patient has been complaining weak and tired and no energy. Blood pressure is still borderline requiring pressor support. He still has NG. No nausea or vomiting has been reported or any diarrhea. PHYSICAL EXAMINATION: On examination, blood pressure 106/35 with a pulse of 82, temperature 98. She is 99% on 3 L nasal cannula. General description is an elderly female lying in bed in no distress. HEENT EXAMINATION: No pallor. The patient did have an NG. EXTREMITIES: No edema of feet. LABS: Hemoglobin 12.9, white count 39.4. BUN of 51, creatinine 2.12. Blood culture on admission has been negative, none repeated. DIAGNOSTIC IMPRESSION AND PLAN: Patient with leukocytosis likely abdominal source in this patient who presented to the hospital , subsequently did have abdominal distention with hard stool with possible local . The patient is currently on Zosyn, however, the patient has been complaining of being tired out and did not want fight anymore and request for possible hospice was indicated, which may be appropriate . . Family at the bedside. Their questions were answered. MMODL / IJN: [id number] /
--- NOTE | 2018-09-30 14:22 | P.DS ---
Providers Date of admission: 09/24/18 10:10 Attending physician: Vandana Casanova Consults: 09/24/18 09:24 Consult Physician Routine Consulting Provider: Jake De La Rosa Consult Reason/Comments: tia vs focal seizure Do you want consulting provider notified?: Yes 09/26/18 16:59 Consult Physician Urgent Consulting Provider: Jake Marx Consult Reason/Comments: celine Do you want consulting provider notified?: Yes 09/27/18 15:35 Consult Physician Urgent Consulting Provider: Alka Smart Consult Reason/Comments: ICU management Do you want consulting provider notified?: Already Contacted 09/28/18 10:37 Consult Physician Stat Consulting Provider: Luba Ramirez Consult Reason/Comments: Colonoscopy Do you want consulting provider notified?: Already Contacted 09/29/18 12:59 Consult Physician Stat Consulting Provider: Herb Collins Consult Reason/Comments: Elevated WBC Do you want consulting provider notified?: Already Contacted Primary care physician: John Paul Jones Hospital Course: 82 y/o female comes in with abd pain, diarrhea. Shewas in [facility]. She was started on iv fluids. Levaquin was started as well. Today the patient still complains of abd pain. She says the diarrhea is co ntrolled now. She had a code stroke called yesterday. Looks like she was having seizure. Rhianna was consulted. 09/27/2018 Patient was still complaining of abdominal pain She said that she still nauseous. Her pressures were low this morning 2019 Pt transferred to ICU yesterday for persistant hypotension She was started on zosyn and oral vanco. Levaquin was dcec, flagyl was continued 09/29/2018 Patient remains hypotensive. There is no clear-cut source of infection patient is quite a bit constipated there is no evidence of for C. diff colitis are diverticulitis because of which vancomycin is being discontinued Zosyn is being continued because of requirement of pressors. Patient is probably dehydrated intravascularly volume depleted but is requiring high dose of norepinephrine 25 mics along with leukocytosis. Although there is no clear-cut evidence or source of infection at this time. Consulted infectious disease. She has fecal impaction 09/30/2018 Because of continued impaction significant nausea vomiting significant dehydration intravascularly depletion and shock secondary to fecal impaction, general surgery recommended laparotomy operative intervention but patient declined any surgical intervention and she wanted to be hospice patient is being switched to hospice patient will be transferred to inpatient hospice services. PHYSICAL EXAMINATION: GENERAL: The patient is alert and oriented x3, patient appears to be in distress because of pain HEENT: Pupils are round and equally reacting to light. EOMI. No scleral icterus. No conjunctival pallor. Normocephalic, atraumatic. No pharyngeal erythema. No thyromegaly. CARDIOVASCULAR: S1 and S2 present. No murmurs, rubs, or gallops. PULMONARY: Chest is clear to auscultation, no wheezing or crackles. ABDOMEN: Slightly distended has absent bowel sounds MUSCULOSKELETAL: No joint swelling or deformity. EXTREMITIES: No cyanosis, clubbing, or pedal edema. NEUROLOGICAL: Gross neurological examination did not reveal any focal deficits. SKIN: No rashes. Assessment and Plan Plan: -Abdominal Distended: Secondary to fecal impaction, recommendations regarding operative intervention as mentioned above and patient is presently being transferred to inpatient hospice services -Hypovolemic shock patient is on pressor support patient will be continued on IV fluids no evidence of infection at this time no evidence of C. diff colitis at this time. -Acute renal failure: Secondary to intravascular depletion and hypotension possibly of acute tubular necrosis. -Leukocytosis with the highly elevated white blood cell count of 36,000 neutrophilic predominance, without any blast cells probably reactive because of the such a high white blood cell count antibiotics are being continued on antibiotics and the patient is also requiring high amount of pressors. Although there is no clear-cut evidence of sepsis at this time -Coronary artery disease Plan - Discharge Summary Discharge Rx Participant: Yes New Discharge Prescriptions: No Action Famotidine [Pepcid] 20 mg PO DAILY Metoprolol Tartrate [Lopressor] 50 mg PO DAILY Metoprolol Tartrate [Lopressor] 25 mg PO HS Simvastatin 40 mg PO HS Olmesartan/Hydrochlorothiazide [Benicar Hct 20-12.5 mg Tablet] 1 tab PO DAILY Levothyroxine Sodium [Synthroid] 75 mcg PO DAILY Cholecalciferol [Vitamin D3 (25 Mcg = 1000 Iu)] 5,000 unit PO Q48H Ferrous Sulfate [Feosol] 325 mg PO DAILY Discharge Medication List Cholecalciferol [Vitamin D3 (25 Mcg = 1000 Iu)] 5,000 unit PO Q48H 09/11/18 [History] Famotidine [Pepcid] 20 mg PO DAILY 09/11/18 [History] Ferrous Sulfate [Feosol] 325 mg PO DAILY 09/11/18 [History] Levothyroxine Sodium [Synthroid] 75 mcg PO DAILY 09/11/18 [History] Metoprolol Tartrate [Lopressor] 25 mg PO HS 09/11/18 [History] Metoprolol Tartrate [Lopressor] 50 mg PO DAILY 09/11/18 [History] Olmesartan/Hydrochlorothiazide [Benicar Hct 20-12.5 mg Tablet] 1 tab PO DAILY 09/11/18 [History] Simvastatin 40 mg PO HS 09/11/18 [History] Follow up Appointment(s)/Referral(s): Tila Valladares MD [Primary Care Provider] - 1-2 days [facility], [REFERRING] - Activity/Diet/Wound Care/Special Instructions: possible HUSAM Discharge Disposition: [facility] TO [facility]
== END 2018-09-30 13:56 | disposition hospice, inpatient (51) | DRG 388 ==
LOC: EC 08:16 → 4MS4W 11:22 → 3SCARD 17:14 → OBSVTOIN 09-24 10:10 → 2SICU 09-27 17:07
PROVIDERS: ADMIT Hospitalist; ATTEND Hospitalist
PROC: 03HY32Z Insertion of Monitoring Device into Upper Artery, Percutaneous Approach (ICD-10-PCS; principal; 2018-09-28)
PROC: 4A133J1 Monitoring of Arterial Pulse, Peripheral, Percutaneous Approach (ICD-10-PCS; principal; 2018-09-28)
PROC: 02H633Z Insertion of Infusion Device into Right Atrium, Percutaneous Approach (ICD-10-PCS; principal; 2018-09-28)
PROC: 4A133B1 Monitoring of Arterial Pressure, Peripheral, Percutaneous Approach (ICD-10-PCS; principal; 2018-09-28)
PROC: 0DCN8ZZ Extirpation of Matter from Sigmoid Colon, Via Natural or Artificial Opening Endoscopic (ICD-10-PCS; 2018-09-29)
DX: K56.41 Fecal impaction (principal); N17.0 Acute kidney failure with tubular necrosis; R57.1 Hypovolemic shock; E87.2 Acidosis; I42.9 Cardiomyopathy, unspecified; R18.8 Other ascites; I13.0 Hypertensive heart and chronic kidney disease with heart failure and stage 1 through stage 4 chronic kidney disease, or unspecified chronic kidney disease; D69.6 Thrombocytopenia, unspecified; E78.5 Hyperlipidemia, unspecified; E89.0 Postprocedural hypothyroidism; I07.1 Rheumatic tricuspid insufficiency; I25.10 Atherosclerotic heart disease of native coronary artery without angina pectoris; I48.91 Unspecified atrial fibrillation; I50.9 Heart failure, unspecified; I65.29 Occlusion and stenosis of unspecified carotid artery; I95.9 Hypotension, unspecified; J98.6 Disorders of diaphragm; K57.30 Diverticulosis of large intestine without perforation or abscess without bleeding; K64.8 Other hemorrhoids; K80.20 Calculus of gallbladder without cholecystitis without obstruction; Z51.5 Encounter for palliative care; Z79.890 Hormone replacement therapy; Z79.899 Other long term (current) drug therapy; Z87.440 Personal history of urinary (tract) infections; Z90.710 Acquired absence of both cervix and uterus; Z95.5 Presence of coronary angioplasty implant and graft; R56.9 Unspecified convulsions; N18.3 Chronic kidney disease, stage 3 (moderate); E11.22 Type 2 diabetes mellitus with diabetic chronic kidney disease; Z98.42 Cataract extraction status, left eye; Z98.41 Cataract extraction status, right eye; Z88.8 Allergy status to other drugs, medicaments and biological substances
CPT/HCPCS: 36415; 36600; 45330; 70450; 71045; 71046; 74018; 74176; 76705; 76770; 80048; 80053; 81001; 82150; 82378; 82533; 82607; 82805; 83605; 83690; 83735; 83880; 84132; 84443; 85025; 85027; 85610; 86850; 86900; 86901; 87040; 87086; 87502; 93306; 93880; 94640; 94760; 95816; 96361; 96365; 96375; 99285

== ENCOUNTER 2018-09-30 13:24 | Inpatient (IN) | payer MEDICAID ==
[2018-09-30] MEDS ORDERED: ATROPINE OPHTH SOLN 1% 5ML BTL SUBLINGUAL PRN (13:28)
[2018-09-30] MEDS ORDERED: ONDANSETRON 4 MG/2 ML VIAL IVP PRN (13:28)
[2018-09-30] MEDS ORDERED: SCOPOLAMINE 1.5MG/72HR PATCH TRANSDERM SCH (13:30)
[2018-09-30] MEDS: LORazepam 2 MG/ML INJ IV PRN ×2 (15:11→17:19)
[2018-09-30] MEDS: MORPHINE SULFATE 2 MG/ML SYRINGE IV PRN ×2 (16:48→21:28)
[2018-10-01] MEDS: MORPHINE SULFATE 2 MG/ML SYRINGE IV PRN (02:37)
[2018-10-01] MEDS: LORazepam 2 MG/ML INJ IV PRN ×2 (02:48→21:26)
[2018-10-01] MEDS ORDERED: MORPHINE SULFATE (100 MG/2 ML) 100 MG in SODIUM CHLORIDE 0.9% 100 ML IV SCH (06:00)
--- NOTE | 2018-10-01 13:53 | P.HPIM ---
History of Present Illness 82-year-old female was admitted to hospital with the acute renal failure shock hypovolemic shock and what appears like toxic megacolon initially was treated for C. diff although there is no evidence of C. diff there is no evidence of infection patient was on high doses of pressors. Patient had severe fecal impaction which didn't resolve with conservative measures because of the Gen. surgery recommended operative intervention and bowel resection and the patient and family declined and the patient wanted to be hospice and patient was subsequently made hospice. Patient was started on comfort measures and Levophed was discontinued ration was started on morphine drip. Patient doesn't appear to be in pain has shallow breathing decreased respiratory rate heart rate blood pressure is around 60 systolic presently. Review of Systems Unable to obtain Past Medical History Past Medical History: Heart Failure, Hypertension Additional Past Medical History / Comment(s): Coronary artery disease with previous coronary stent, Hypertension, history of ovarian tumor removed in 2004, hypothyroidism and the patient had thyroidectomy, renal cysts, frequent UTIs, cataracts of the eyes, hyperlipidemia., head cyst removed in 2000 History of Any Multi-Drug Resistant Organisms: None Reported Past Surgical History: Heart Catheterization, Heart Catheterization With Stent, Hernia Repair, Hysterectomy Additional Past Surgical History / Comment(s): left shoulder surgery, peripheral angiography Past Anesthesia/Blood Transfusion Reactions: No Reported Reaction Date of Last Stent Placement:: 0 Past Psychological History: No Psychological Hx Reported Smoking Status: Never smoker Past Alcohol Use History: None Reported Past Drug Use History: None Reported Medications and Allergies Home Medications Medication Instructions Recorded Confirmed Type Cholecalciferol [Vitamin D3 (25 5,000 unit PO Q48H 09/11/18 09/30/18 History Mcg = 1000 Iu)] Famotidine [Pepcid] 20 mg PO DAILY 09/11/18 09/30/18 History Ferrous Sulfate [Feosol] 325 mg PO DAILY 09/11/18 09/30/18 History Levothyroxine Sodium [Synthroid] 75 mcg PO DAILY 09/11/18 09/30/18 History Metoprolol Tartrate [Lopressor] 25 mg PO HS 09/11/18 09/30/18 History Metoprolol Tartrate [Lopressor] 50 mg PO DAILY 09/11/18 09/30/18 History Olmesartan/Hydrochlorothiazide 1 tab PO DAILY 09/11/18 09/30/18 History [Benicar Hct 20-12.5 mg Tablet] Simvastatin 40 mg PO HS 09/11/18 09/30/18 History Allergies Allergy/AdvReac Type Severity Reaction Status Date / Time fexofenadine [From Mila] Allergy Unknown Verified 09/30/18 14:20 Physical Exam Vitals: Vital Signs Pulse Resp BP Pulse Ox 09/30/18 15:00 83 16 72/36 98 09/30/18 14:29 81 16 97 Intake and Output 09/30/18 10/01/18 10/01/18 22:59 06:59 14:59 Intake Total 160 161.02 Output Total 5 0 Balance 155 161.02 Intake: IV 160 160 0.9 normal saline 160 160 Intake, IV Titration 1.02 Amount Morphine Sulfate (100 mg/ 1.02 2 ml) 100 mg In Sodium Chloride 0.9% 100 ml @ 1 MG/HR 1.02 mls/hr IV . Q24H [facility] Rx#:[id number] Output: Urine 5 0 Other: Voiding Method Indwelling Catheter Indwelling Catheter Indwelling Catheter Patient is not arousable doesn't appear to be in any discomfort shallow breathing, area no significant secretions Assessment and Plan Plan: Fecal impaction -Hypovolemic shock -Anuria -Acute renal failure For rest of the medical problems days up at my dictation of discharge summary from yesterday
[2018-10-01 23:56] VITALS: BP 000/29; PULSE 66; RESP 3
== END 2018-10-01 23:00 | disposition expired | DRG 951 ==
LOC: 2SICU 13:57 → 4MS4W 10-01 12:02
PROVIDERS: ADMIT Internal Medicine; ATTEND Internal Medicine
DX: Z51.5 Encounter for palliative care (principal); N17.9 Acute kidney failure, unspecified; Z66 Do not resuscitate; R57.1 Hypovolemic shock; R34 Anuria and oliguria; I11.0 Hypertensive heart disease with heart failure; I50.9 Heart failure, unspecified; N28.1 Cyst of kidney, acquired; E78.5 Hyperlipidemia, unspecified; E89.0 Postprocedural hypothyroidism; I25.10 Atherosclerotic heart disease of native coronary artery without angina pectoris; K56.41 Fecal impaction; H26.9 Unspecified cataract; Z79.890 Hormone replacement therapy; Z79.899 Other long term (current) drug therapy; Z87.440 Personal history of urinary (tract) infections; Z90.710 Acquired absence of both cervix and uterus; Z95.5 Presence of coronary angioplasty implant and graft; Z88.8 Allergy status to other drugs, medicaments and biological substances